=== PATIENT | female | born 1980 | race Caucasian/White ===

== ENCOUNTER → 2016-04-06 | Outpatient (CLI) | payer OTHER ==
[~2016-04-06] MED LIST: CETI10TA10 PO; ETON1IMP2; LEVO75TA PO; ONDA4TAB10 SL; PRENTAB26 PO; VITA400C15 PO
--- NOTE | 2016-04-07 11:30 | CODING QUERY NO DIAGNOSIS ---
TREATMENT RENDERED WITHOUT A DIAGNOSIS 81 To promote full compliance with coding requirements relating to patient care, physician participation is requested in all cases of passenger elevator operator uncertainty. Please assist us with providing a diagnosis/symptom for the test(s) below: A diagnosis/symptom was not documented on your Order. A valid diagnosis/symptom is required to bill all insurances. Please remember that we are unable to code a diagnosis of rule out, probable, possible, questionable, or suspected. DOS 04/06/16 Tests that require a diagnosis: * GRP A BETA STREP DIAGNOSIS: Provider Signature: Date: Thank you Daisy [facility] Information Management Once completed, please kindly fax back to [phone] For questions please call [phone]
== END | disposition home or self-care (01) ==
LOC: C.LABSPEC 08:05
PROVIDERS: ATTEND Internal Medicine
DX: J02.9 Acute pharyngitis, unspecified (principal)

== ENCOUNTER 2017-10-29 19:16 | Emergency (ER) | payer OTHER, BC ==
[~2017-10-29] VITALS: Ht 160 cm; Wt 50.0 kg
[2017-10-29 19:27] VITALS: Ht 160 cm; Wt 50.0 kg
[2017-10-29] MEDS ORDERED: VITA400C28 PO (19:35)
[2017-10-29 19:50] VITALS: BP 129/89; PULSE 69; TEMP 36.8; O2SAT 100
--- NOTE | 2017-10-29 23:22 | EMERGENCY ROOM VISIT NOTE ---
ED Visit Note First contact with patient: 19:28 CHIEF COMPLAINT: Needlestick injury HISTORY OF PRESENT ILLNESS: This right hand dominant 37-year-old femur patient presents to the emergency department, ambulatory, complaining of a needlestick injury to the right fourth finger. The patient accidentally stuck herself with a bloody, hollow bore needle while cleaning a suture tray. She states the puncture wound did bleed immediately. She immediately washed the hand with soap and water twice. The source patient is hepatitis C positive, and it is unknown if he was ever treated. He did agree to testing. The patient denies significant pain. She denies any numbness or tingling. Tetanus vaccination is up-to-date. REVIEW OF SYSTEMS: A 6 system review of systems was performed with positives and pertinent negatives listed in the history of present illness. All other systems were reviewed and are negative. ALLERGIES: None MEDICATIONS: Synthroid, Nexplanon PMH: None SOCIAL HISTORY: The patient lives locally with family. She denies drug, alcohol , tobacco use. PHYSICAL EXAM: VITALS: Vitals are noted on the nurse's note and reviewed by myself. Vital signs stable. GENERAL: This is a 37-year-old white female, in no acute distress, nondiaphoretic, well-developed well-nourished. SKIN: There is a small puncture wound on the anterior aspect of the distal right fourth digit. There is no active bleeding at this time. There is no discoloration. There is no purulence or erythema. No fluctuance. No significant swelling. There is no tenderness to palpation. EMERGENCY DEPARTMENT COURSE: The patient was seen and evaluated as above. She did consent to baseline testing. Labs drawn. I did consult with the postexposure prophylaxis hotline regarding the recommendations for PEP. They advised that there is no PEP for hepatitis C. They recommended the source patient be tested with a hepatitis C PCR to verify for active infection. They also recommended an antibody test be performed. The provider advised of a less than 1.8% risk of exposure with active hepatitis C. She did recommend the patient be tested for hep C RNA in 6 weeks and a hepatitis C antibody in 24 weeks. She recommended a rapid HIV screen. She states that if this is negative the patient does not need to start postexposure prophylaxis for HIV. This was performed and I was notified that the source patient was negative. The patient was not started on postexposure prophylaxis. The patient was advised to follow-up with employee [facility]. I did contact employee health and left a message notifying them of the patient's name. Discharge instructions reviewed. The patient was discharged home in good condition. I attest that I have personally reviewed the patient's current medication list. Patient was found to have normal blood pressure on screening and does not require follow-up. Differential diagnosis includes HIV exposure, hepatitis C exposure, blood-borne pathogen exposure, laceration, contusion, fracture, sprain/strain, tendon or ligament injury, neurovascular compromise, foreign body, assault, and others DIAGNOSIS: Employee health significant exposure, puncture wound right 4th finger The chart was completed utilizing [employer] Speech voice recognition software. Grammatical errors, random word insertions, pronoun errors, and incomplete sentences are an occasional consequence of this system due to software limitations, ambient noise, and hardware issues. Any formal questions or concerns about the content, text, or information contained within the body of this dictation should be directly addressed to the provider for clarification. Problem List Medical Problems: (1) Abdominal pain Status: Resolved (2) Amniotic fluid leaking Status: Resolved (3) Asthma, Unspecified Status: Chronic (4) Breast pain Status: Resolved (5) Breech presentation, antepartum Status: Resolved (6) Diarrhea Status: Resolved (7) Hypothyroidism Nos Status: Chronic (8) Mastitis Status: Resolved (9) Vomiting Status: Resolved Current/Historical Medications Scheduled Etonogestrel (Nexplanon), 1 DOSE CONTINOUS Levothyroxine Sodium (Synthroid), 75 MCG PO QAM Multivit/Min/Iron/Fol Ac/Pren ( Vitamin), 1 TAB PO DAILY Vitamin E (Alph-E), 400 UNIT PO DAILY Allergies Coded Allergies: No Known Allergies (Unverified , 10/29/17) Vital Signs Date Time Temp Pulse Resp B/P (MAP) Pulse Ox O2 Delivery O2 Flow Rate FiO2 10/29/17 19:50 36.8 69 18 129/89 100 10/29/17 19:27 36.8 69 18 129/89 100 Room Air Departure Information Impression Primary Impression: Puncture wound of finger of right hand Additional Impression: Employee exposure to blood Dispostion Home / Self-Care Condition FAIR Referrals Greer Capone PARamana (PCP) Forms WORK / SCHOOL INSTRUCTIONS, HOME CARE DOCUMENTATION FORM, IMPORTANT VISIT INFORMATION Patient Instructions My [facility] Problem Qualifiers Primary Impression: Puncture wound of finger of right hand Encounter type: initial encounter Qualified Codes: S61.239A - Puncture wound without foreign body of unspecified finger without damage to nail, initial encounter
== END 2017-10-29 19:51 | disposition home or self-care (01) ==
LOC: C.EDB 19:17 → C.EDD 19:51
DX: S61.231A Puncture wound without foreign body of left index finger without damage to nail, initial encounter (principal); W46.1XXA Contact with contaminated hypodermic needle, initial encounter; Y99.0 Civilian activity done for income or pay; J45.909 Unspecified asthma, uncomplicated; E03.9 Hypothyroidism, unspecified; Z79.3 Long term (current) use of hormonal contraceptives; Z79.899 Other long term (current) drug therapy

== ENCOUNTER 2020-07-20 12:11 | Inpatient (IN) ==
[2020-07-20] MEDS ORDERED: LORazepam 0.5 MG/1 ML VIAL IV STA ×2 (12:41→15:27)
[2020-07-20] MEDS ORDERED: SODIUM CHLORIDE 0.9% 1,000 ML IV ONE (12:41)
--- NOTE | 2020-07-20 12:52 | Emergency Department Note ---
History of Present Illness General Chief complaint: Dizziness Stated complaint: DIZZINESS, SHAKING Time Seen by Provider: 07/20/20 12:19 Source: patient Mode of arrival: ambulatory Limitations: no limitations History of Present Illness This patient is a 39-year-old female who comes in complaining of dizziness and shaking and an unsteady feeling. She does relate this to drinking alcohol. She drinks typically over up a bottle of wine in the evening. Last time she drank was a glass of wine this morning. She said over the weekend she did not drink as much and felt very shaky. She is also had some left breast pain has been going on for some time and she saw Dr. Wilson this past week and had a ultrasound as well as mammogram which were normal. She has had some intermittent epigastric pain for years. She is vomiting about every other time after she brushes her teeth but think she is just really anxious. No blood in her emesis. She said diarrhea without blood or melena. No weight loss or gain. She does not believe she is . No vaginal bleeding or discharge. She did have the Covid vaccine x2. No chest pain occasional cough she has pain in the left breast area which she is concerned could be related to her lung as well. She has had a mild frontal headache at times. No fall or trauma she is not been passing out or had any syncope. She said she is just feeling very fatigued and it was hard to get out of bed this morning. She denies any drug use. Denies suicidal or homicidal ideations. Home Medications Medication Instructions Recorded Confirmed Type levothyroxine 75 mcg tablet 75 mcg PO DAILY 11/12/19 07/20/20 History norethindrone 1 mg-ethinyl 1 tab PO DAILY #84 tab 11/19/19 07/20/20 Rx estradiol 20 mcg (21)-iron 75 mg (7) tablet ondansetron HCl [Zofran] 4 mg PO Q6H PRN 07/20/20 07/20/20 History Allergies Allergy/AdvReac Type Severity Reaction Status Date / Time No Known Allergies Allergy Verified 07/20/20 15:36 Past Med/Surg History Medical History Asthma Hypothyroidism Surgical History History of oral surgery tooth extraction Family History Aunt Breast cancer Paternal Grandmother (Paternal) Lymphoma Other Dyslipidemia Heart disease Hypertension Ovarian cancer Denies family history of Colorectal cancer Social History Smoking Status: Never smoker Hx Alcohol Use: Yes Alcohol type: wine Alcohol type Comment: 1 - 1.5 ti ttles/day Hx Substance Use: No Preferred Language: Arabic Communication Ability: Effective Clinical Nurse Educator Required: No Beliefs That Will Affect Care: None Current Living Situation: Spouse and Family Other Information That Helps Us Care for You: No Feels Safe at Home: Yes Safety Concerns: Feels Safe At This Time Assistive Devices: None Immunizations: Past medical historyhypothyroid. On medications. She has a history of depression/anxiety and was briefly on medication in the past but does not take anything for it at present. Review of Systems A total of 10 systems reviewed and were otherwise negative Physical Exam Vital Signs Vital Signs - 24 hr 07/20/20 13:14 07/20/20 13:15 07/20/20 13:30 Pulse Rate 90 86 93 H Pulse Rate [Right Finger] Pulse Rate from SpO2 Sensor 89 94 H Pulse Rhythm Regular Pulse Rhythm [Right Finger] Pulse Strength [Right Finger] Respiratory Rate 11 L 16 14 Respiratory Effort / Characteristics Respiratory Depth Respiratory Pattern Blood Pressure Blood Pressure [Left Arm] Blood Pressure Mean Blood Pressure Mean [Left Arm] Blood Pressure Position [Left Arm] Pulse Oximetry 100 98 Oxygen Delivery Method Room Air 07/20/20 13:52 07/20/20 14:11 07/20/20 14:37 Pulse Rate Pulse Rate [Right Finger] Pulse Rate from SpO2 Sensor 104 H Pulse Rhythm Pulse Rhythm [Right Finger] Pulse Strength [Right Finger] Respiratory Rate 18 Respiratory Effort / Characteristics Non-Labored Spontaneous Respiratory Depth Normal Respiratory Pattern Blood Pressure 123/86 Blood Pressure [Left Arm] 123/86 Blood Pressure Mean 98 Blood Pressure Mean [Left Arm] 98 Blood Pressure Position [Left Arm] Pulse Oximetry 99 97 97 Oxygen Delivery Method Room Air Room Air 07/20/20 15:00 07/20/20 15:01 07/20/20 15:15 Pulse Rate 103 H 100 H Pulse Rate [Right Finger] 98 H Pulse Rate from SpO2 Sensor 103 H 101 H Pulse Rhythm Pulse Rhythm [Right Finger] Regular Pulse Strength [Right Finger] Normal Respiratory Rate 14 14 16 Respiratory Effort / Characteristics Non-Labored Spontaneous Respiratory Depth Normal Respiratory Pattern Regular Blood Pressure 147/97 H Blood Pressure [Left Arm] 137/92 Blood Pressure Mean 113 Blood Pressure Mean [Left Arm] 107 Blood Pressure Position [Left Arm] Lying Pulse Oximetry 98 99 98 Oxygen Delivery Method Room Air 07/20/20 15:26 07/20/20 15:30 07/20/20 15:31 Pulse Rate 98 H 94 H 104 H Pulse Rate [Right Finger] Pulse Rate from SpO2 Sensor 102 H Pulse Rhythm Pulse Rhythm [Right Finger] Pulse Strength [Right Finger] Respiratory Rate 15 16 16 Respiratory Effort / Characteristics Respiratory Depth Respiratory Pattern Blood Pressure 137/92 122/91 Blood Pressure [Left Arm] Blood Pressure Mean 107 101 Blood Pressure Mean [Left Arm] Blood Pressure Position [Left Arm] Pulse Oximetry 97 Oxygen Delivery Method 07/20/20 16:00 Pulse Rate 110 H Pulse Rate [Right Finger] Pulse Rate from SpO2 Sensor Pulse Rhythm Pulse Rhythm [Right Finger] Pulse Strength [Right Finger] Respiratory Rate 18 Respiratory Effort / Characteristics Respiratory Depth Respiratory Pattern Blood Pressure Blood Pressure [Left Arm] Blood Pressure Mean Blood Pressure Mean [Left Arm] Blood Pressure Position [Left Arm] Pulse Oximetry Oxygen Delivery Method General: Well developed well nourished young female who appears teary-eyed and mildly shaky but otherwise in no acute distress, breathing comfortably on room air. Normal speech HEENT: Normal cephalic atraumatic. Pupils are equal round and reactive to light. Sclera are anicteric extraocular movements are intact. Oropharynx is pink with moist mucous membranes. No swelling of the mouth lips or tongue. Neck: Supple with a midline trachea. No meningeal signs or stiffness, no JVD or bruits. No Stridor. Chest: Clear to auscultation bilaterally. No wheezes or rhonchi. No increased work of breathing. Heart: Regular rate and rhythm without murmurs or gallops. Abdomen: Soft nontender, nondistended without rebound guarding or rigidity. Extremities: No cyanosis clubbing or edema. No calf tenderness or assymetry Spine/Back. Non tender to palpation. No CVA tenderness Skin: Good turgor without rashes. Neurologic exam: Cranial nerves two through 12 are intact. Motor and sensation are intact and symmetrical throughout. Finger-nose intact but she does have some mild shakiness of her arms when extended. Course Administered Medications Lorazepam (Ativan) 2 mg in 4 mls @ 4 mls/min IV UD PRN; Protocol PRN Reason: EtOH Withdrawl AWSS Score 8,9 Stop: 08/19/20 21:43 Last Admin: 07/21/20 12:00 Dose: 4 mls/min Documented by: [id number] Admin: 07/21/20 07:34 Dose: 4 mls/min Documented by: [id number] Admin: 07/20/20 23:46 Dose: 4 mls/min Documented by: [id number] Multivitamins 10 ml/ Thiamine HCl 100 mg/ Folic Acid 1 mg/Sodium Chloride 1,011.2 mls @ 125 mls/hr IV DAILY@0900 [facility] Stop: 07/21/20 18:00 Last Infusion: 07/21/20 10:55 Dose: 0 mls/hr Documented by: [id number] Admin: 07/21/20 08:51 Dose: 500 mls/hr Documented by: [id number] Dextrose/Sodium Chloride (D5w And 1/2nss) 1,000 mls @ 100 mls/hr IV .Q10H [facility] Stop: 08/19/20 21:43 Last Infusion: 07/21/20 11:00 Dose: 100 mls/hr Documented by: [id number] Infusion: 07/21/20 08:53 Dose: 0 mls/hr Documented by: [id number] Admin: 07/21/20 08:51 Dose: 100 mls/hr Documented by: [id number] Infusion: 07/21/20 08:24 Dose: 100 mls/hr Documented by: [id number] Admin: 07/20/20 22:24 Dose: 100 mls/hr Documented by: [id number] Levothyroxine Sodium (Levothyroxine Sodium 75 Mcg Tablet) 75 mcg PO DAILYBB [facility] Stop: 08/20/20 06:29 Last Admin: 07/21/20 06:26 Dose: 75 mcg Documented by: [id number] Discontinued Medications Gabapentin (Gabapentin 400 Mg Cap) 800 mg PO NOW ONE Stop: 07/20/20 21:45 Last Admin: 07/20/20 22:07 Dose: 800 mg Documented by: [id number] Gabapentin (Gabapentin 400 Mg Cap) 400 mg PO Q6H [facility] Stop: 07/21/20 12:01 Last Admin: 07/21/20 11:51 Dose: 400 mg Documented by: [id number] Admin: 07/21/20 06:26 Dose: 400 mg Documented by: [id number] Lorazepam (Ativan) 0.5 mg in 1 mls @ 1 mls/min IV NOW STA Stop: 07/20/20 12:42 Last Admin: 07/20/20 13:06 Dose: 1 mls/min Documented by: [id number] Sodium Chloride (Nss 1000ml) 1,000 mls @ 999 mls/hr IV .Q1H1M ONE Stop: 07/20/20 13:41 Last Infusion: 07/20/20 14:33 Dose: 0 mls/hr Documented by: [id number] Infusion: 07/20/20 14:07 Dose: 0 mls/hr Documented by: [id number] Admin: 07/20/20 13:06 Dose: 999 mls/hr Documented by: [id number] Lorazepam (Ativan) 0.5 mg in 1 mls @ 1 mls/min IV NOW STA Stop: 07/20/20 15:28 Last Admin: 07/20/20 16:23 Dose: 1 mls/min Documented by: [id number] Multivitamins 10 ml/ Thiamine HCl 100 mg/ Folic Acid 1 mg/Sodium Chloride 1,011.2 mls @ 1,011.2 mls/hr IV .Q1H ONE Stop: 07/20/20 16:26 Last Infusion: 07/20/20 21:18 Dose: 0 mls/hr Documented by: [id number] Admin: 07/20/20 17:32 Dose: 1,011.2 mls/hr Documented by: [id number] Lorazepam (Ativan) 1 mg in 2 mls @ 2 mls/min IV NOW STA Stop: 07/20/20 18:02 Last Admin: 07/20/20 18:15 Dose: 2 mls/min Documented by: [id number] Lorazepam (Ativan) 1 mg in 2 mls @ 2 mls/min IV NOW STA Stop: 07/20/20 20:37 Last Admin: 07/20/20 21:09 Dose: 2 mls/min Documented by: [id number] Ioversol (Optiray 350 500ml) 120 ml IV ONCE ONE Stop: 07/20/20 13:59 Last Admin: 07/20/20 13:58 Dose: 120 ml Documented by: [id number] Ondansetron HCl (Ondansetron Inj 2 Mg/Ml 2 Ml Vial) 4 mg IV NOW STA Stop: 07/20/20 16:03 Last Admin: 07/20/20 16:24 Dose: 4 mg Documented by: [id number] Potassium Chloride (Potassium Chloride Crtab 20 Meq Tabcr) 40 meq PO ONE ONE Stop: 07/20/20 16:44 Last Admin: 07/20/20 17:31 Dose: 40 meq Documented by: [id number] Medical Decision Making Differential Diagnosis Dehydration, electrolyte or metabolic abnormality, alcohol use/withdrawal, Covid, anxiety, intra-abdominal process, PE, intracranial process Medical Records Attestation: I reviewed the patient's medical records. Home Medications Current Medication List: was personally reviewed by me Laboratory Data Attestation: I reviewed the patient's lab results. Result diagrams: 07/20/20 13:00 07/21/20 05:45 Lab Results 07/20/20 07/20/20 07/20/20 Range/Units 13:00 13:00 13:00 WBC 4.02 L (4.8-10.8) K/uL RBC 3.85 L (4.2-5.4) M/uL Hgb 13.3 (12.0-16.0) g/dL Hct 39.4 (37-47) % MCV 102.3 H (80-100) fL MCH 34.5 H (25-34) pg MCHC 33.8 (32-36) g/dL RDW Std Deviation 53.3 H (36.4-46.3) fL RDW Coeff of Tan 14.2 (11.5-14.5) % Plt Count 150 (130-400) K/uL MPV 10.6 H (7.4-10.4) fL Immature Gran % (Auto) 0.5 % Neut % (Auto) 53.2 % Lymph % (Auto) 34.8 % [place] % (Auto) 9.5 % Eos % (Auto) 1.5 % Baso % (Auto) 0.5 % Neut # (Auto) 2.14 (1.4-6.5) K/uL Lymph # (Auto) 1.40 (1.2-3.4) K/uL [place] # (Auto) 0.38 (0.11-0.59) K/uL Eos # (Auto) 0.06 (0-0.5) K/uL Baso # (Auto) 0.02 (0-0.2) K/uL Immature Gran # (Auto) 0.02 (0.00-0.02) K/uL PT 9.8 (9.0-12.0) Seconds INR 1.0 (0.9-1.1) APTT 25.3 (21.0-31.0) Seconds PTT Ratio 1.0 Sodium 140 (136-145) mmol/L Potassium 3.3 L (3.5-5.1) mmol/L Chloride 104 (98-107) mmol/L Carbon Dioxide 21 (21-32) mmol/L Anion Gap 15.0 H (3-11) BUN 9 (7-18) mg/dl Creatinine 0.63 (0.6-1.2) mg/dl Est Cr Clr Drug Dosing 100.2 ml/min Est GFR ( Amer) 131.9 ml/min Est GFR (Non-Af Amer) 113.8 ml/min BUN/Creatinine Ratio 14.4 (10-20) Glucose 66 L (70-99) mg/dl Calcium 9.3 (8.5-10.1) mg/dl Magnesium 1.8 (1.8-2.4) mg/dl Total Bilirubin 0.6 (0.2-1) mg/dl AST 165 H (15-37) U/L ALT 41 (12-78) U/L Alkaline Phosphatase 69 (45-117) U/L Total Protein 8.3 H (6.4-8.2) gm/dl Albumin 4.1 (3.4-5.0) gm/dl Globulin 4.2 H (2.5-4.0) gm/dl Albumin/Globulin Ratio 1.0 (0.9-2) Lipase 109 (73-393) U/L TSH (0.300-4.500) uIu/ml HCG, Qual (Negative) Salicylates (2.8-20) mg/dl Acetaminophen (10-30) ug/ml Ethyl Alcohol mg/dL (0-3) mg/dl COVID-19 Eval Order SARS-CoV-2 (PCR) (Negative) 07/20/20 07/20/20 07/20/20 Range/Units 13:00 13:00 13:00 WBC (4.8-10.8) K/uL RBC (4.2-5.4) M/uL Hgb (12.0-16.0) g/dL Hct (37-47) % MCV (80-100) fL MCH (25-34) pg MCHC (32-36) g/dL RDW Std Deviation (36.4-46.3) fL RDW Coeff of Tan (11.5-14.5) % Plt Count (130-400) K/uL MPV (7.4-10.4) fL Immature Gran % (Auto) % Neut % (Auto) % Lymph % (Auto) % [place] % (Auto) % Eos % (Auto) % Baso % (Auto) % Neut # (Auto) (1.4-6.5) K/uL Lymph # (Auto) (1.2-3.4) K/uL [place] # (Auto) (0.11-0.59) K/uL Eos # (Auto) (0-0.5) K/uL Baso # (Auto) (0-0.2) K/uL Immature Gran # (Auto) (0.00-0.02) K/uL PT (9.0-12.0) Seconds INR (0.9-1.1) APTT (21.0-31.0) Seconds PTT Ratio Sodium (136-145) mmol/L Potassium (3.5-5.1) mmol/L Chloride (98-107) mmol/L Carbon Dioxide (21-32) mmol/L Anion Gap (3-11) BUN (7-18) mg/dl Creatinine (0.6-1.2) mg/dl Est Cr Clr Drug Dosing ml/min Est GFR ( Amer) ml/min Est GFR (Non-Af Amer) ml/min BUN/Creatinine Ratio (10-20) Glucose (70-99) mg/dl Calcium (8.5-10.1) mg/dl Magnesium (1.8-2.4) mg/dl Total Bilirubin (0.2-1) mg/dl AST (15-37) U/L ALT (12-78) U/L Alkaline Phosphatase (45-117) U/L Total Protein (6.4-8.2) gm/dl Albumin (3.4-5.0) gm/dl Globulin (2.5-4.0) gm/dl Albumin/Globulin Ratio (0.9-2) Lipase (73-393) U/L TSH 3.290 (0.300-4.500) uIu/ml HCG, Qual Negative (Negative) Salicylates < 1.7 L (2.8-20) mg/dl Acetaminophen < 2 L (10-30) ug/ml Ethyl Alcohol mg/dL (0-3) mg/dl COVID-19 Eval Order SARS-CoV-2 (PCR) (Negative) 07/20/20 07/20/20 07/20/20 Range/Units 13:15 13:15 13:16 WBC (4.8-10.8) K/uL RBC (4.2-5.4) M/uL Hgb (12.0-16.0) g/dL Hct (37-47) % MCV (80-100) fL MCH (25-34) pg MCHC (32-36) g/dL RDW Std Deviation (36.4-46.3) fL RDW Coeff of Tan (11.5-14.5) % Plt Count (130-400) K/uL MPV (7.4-10.4) fL Immature Gran % (Auto) % Neut % (Auto) % Lymph % (Auto) % [place] % (Auto) % Eos % (Auto) % Baso % (Auto) % Neut # (Auto) (1.4-6.5) K/uL Lymph # (Auto) (1.2-3.4) K/uL [place] # (Auto) (0.11-0.59) K/uL Eos # (Auto) (0-0.5) K/uL Baso # (Auto) (0-0.2) K/uL Immature Gran # (Auto) (0.00-0.02) K/uL PT (9.0-12.0) Seconds INR (0.9-1.1) APTT (21.0-31.0) Seconds PTT Ratio Sodium (136-145) mmol/L Potassium (3.5-5.1) mmol/L Chloride (98-107) mmol/L Carbon Dioxide (21-32) mmol/L Anion Gap (3-11) BUN (7-18) mg/dl Creatinine (0.6-1.2) mg/dl Est Cr Clr Drug Dosing ml/min Est GFR ( Amer) ml/min Est GFR (Non-Af Amer) ml/min BUN/Creatinine Ratio (10-20) Glucose (70-99) mg/dl Calcium (8.5-10.1) mg/dl Magnesium (1.8-2.4) mg/dl Total Bilirubin (0.2-1) mg/dl AST (15-37) U/L ALT (12-78) U/L Alkaline Phosphatase (45-117) U/L Total Protein (6.4-8.2) gm/dl Albumin (3.4-5.0) gm/dl Globulin (2.5-4.0) gm/dl Albumin/Globulin Ratio (0.9-2) Lipase (73-393) U/L TSH (0.300-4.500) uIu/ml HCG, Qual (Negative) Salicylates (2.8-20) mg/dl Acetaminophen (10-30) ug/ml Ethyl Alcohol mg/dL 287.0 H (0-3) mg/dl COVID-19 Eval Order Covid19 at [facility] SARS-CoV-2 (PCR) NEGATIVE (Negative) Imaging Data My Impression: Abdomen/Pelvis CT 07/20/20 12:39 CT OF THE ABDOMEN AND PELVIS WITH CONTRAST CLINICAL HISTORY: Abdominal pain, elevated lfts. COMPARISON STUDY: CT of the abdomen and pelvis May 06, 2015. Right upper quadrant ultrasound July 12, 2015. TECHNIQUE: Following IV administration of 120 mL of Optiray, axial images of the abdomen and pelvis were obtained from the lung bases to the proximal femurs. Images were reviewed in the axial, sagittal, and coronal planes. IV contrast was administered without complication. Automated exposure control was utilized for the study. A dose lowering technique was utilized adhering to the principles of ALARA. FINDINGS: Please note that the chest CT will be reported separately. No pneumatosis, free air or portal venous gas is noted. Hepatic steatosis is present. No hepatic lesions are identified. There is no biliary or pancreatic ductal dilatation. No peripancreatic infiltration or fluid is noted. The spleen, adrenal glands and kidneys are unremarkable. There is no hydronephrosis. The appendix is normal. Note is made of submucosal fat deposition within the ascending colon. Mild wall thickening of the sigmoid colon, descending colon and transverse colon is noted. There is also mild wall thickening of the ascending colon which is probably chronic. No free air or abscess is present. Major vasculature is patent. There is no ascites or lymphadenopathy. No acute fracture or suspicious lesion is identified within the visualized skeletal structures. IMPRESSION: 1. Mild wall thickening of the transverse colon, descending colon and sigmoid colon which suggests a nonspecific colitis, likely infectious or inflammatory. Submucosal fat deposition within the ascending colon can be seen in the setting of chronic inflammation. 2. Hepatic steatosis. 3. No bowel obstruction. Normal appendix. ACT 112: Negative or not required by law. Electronically signed by: Fabian Smith M.D. 07/20/2020 2:31 PM Chest CTA 07/20/20 12:39 CHEST CTA for PULMONARY ARTERIES CT DOSE: 1121.89 mGy.cm HISTORY: Dizziness. Atypical chest pain. TECHNIQUE: Multiaxial CT images of the chest were performed following the intravenous administration of contrast to evaluate the pulmonary arteries. Maximal intensity projection images were also obtained. A dose lowering technique was utilized adhering to the principles of ALARA. COMPARISON STUDY: Chest CTA 07/12/2015. FINDINGS: Limited views of the upper abdomen demonstrate hepatic steatosis and a normal spleen. Please refer to same day abdomen and pelvis CT for further evaluation of the abdominal structures. Normal caliber thoracic aorta with no evidence for dissection. No pleural or pericardial effusions. The heart is normal in size. No filling defects within the pulmonary arteries to suggest pulmonary embolus. No mediastinal hilar lymphadenopathy. Normal esophagus. No fractures within the visualized osseous structures. No pneumothorax. The central airways are patent. Stable 3 mm right middle lobe nodule on image 119. This is likely benign given the long-term stability. Otherwise, the lungs are clear. IMPRESSION: 1. No evidence for pulmonary embolus. 2. Hepatic steatosis. This is better appreciated on the same day abdomen and pelvis CT. ACT 112: Negative or not required by law. Electronically signed by: Doug George M.D. 07/20/2020 2:[address] 07/20/20 12:[address] DOSE: HISTORY: headache TECHNIQUE: Multiaxial CT images of the head were performed without the use of intravenous contrast. Automated exposure control was utilized for this study. A dose lowering technique was utilized adhering to the principles of ALARA. Comparison: None. Findings: The paranasal sinuses and mastoid air cells are clear. The calvarium and skull base are intact. The ventricles and sulci are within normal limits. There is no mass, hematoma, midline shift, or acute infarct. Impression: No acute intracranial abnormality. ACT 112: Negative or not required by law. Electronically signed by: Doug George M.D. 07/20/2020 2:15 PM Radiologist's Impression: Abdomen/Pelvis CT 07/20/20 12:39 CT OF THE ABDOMEN AND PELVIS WITH CONTRAST CLINICAL HISTORY: Abdominal pain, elevated lfts. COMPARISON STUDY: CT of the abdomen and pelvis May 06, 2015. Right upper quadrant ultrasound July 12, 2015. TECHNIQUE: Following IV administration of 120 mL of Optiray, axial images of the abdomen and pelvis were obtained from the lung bases to the proximal femurs. Images were reviewed in the axial, sagittal, and coronal planes. IV contrast was administered without complication. Automated exposure control was utilized for the study. A dose lowering technique was utilized adhering to the principles of ALARA. FINDINGS: Please note that the chest CT will be reported separately. No pneumatosis, free air or portal venous gas is noted. Hepatic steatosis is present. No hepatic lesions are identified. There is no biliary or pancreatic ductal dilatation. No peripancreatic infiltration or fluid is noted. The spleen, adrenal glands and kidneys are unremarkable. There is no hydronephrosis. The appendix is normal. Note is made of submucosal fat deposition within the ascending colon. Mild wall thickening of the sigmoid colon, descending colon and transverse colon is noted. There is also mild wall thickening of the ascending colon which is probably chronic. No free air or abscess is present. Major vas culature is patent. There is no ascites or lymphadenopathy. No acute fracture or suspicious lesion is identified within the visualized skeletal structures. IMPRESSION: 1. Mild wall thickening of the transverse colon, descending colon and sigmoid colon which suggests a nonspecific colitis, likely infectious or inflammatory. Submucosal fat deposition within the ascending colon can be seen in the setting of chronic inflammation. 2. Hepatic steatosis. 3. No bowel obstruction. Normal appendix. ACT 112: Negative or not required by law. Electronically signed by: Fabian Smith M.D. 07/20/2020 2:31 PM Chest CTA 07/20/20 12:39 CHEST CTA for PULMONARY ARTERIES CT DOSE: 1121.89 mGy.cm HISTORY: Dizziness. Atypical chest pain. TECHNIQUE: Multiaxial CT images of the chest were performed following the intravenous administration of contrast to evaluate the pulmonary arteries. Maximal intensity projection images were also obtained. A dose lowering technique was utilized adhering to the principles of ALARA. COMPARISON STUDY: Chest CTA 07/12/2015. FINDINGS: Limited views of the upper abdomen demonstrate hepatic steatosis and a normal spleen. Please refer to same day abdomen and pelvis CT for further evaluation of the abdominal structures. Normal caliber thoracic aorta with no evidence for dissection. No pleural or pericardial effusions. The heart is normal in size. No filling defects within the pulmonary arteries to suggest pulmonary embolus. No mediastinal hilar lymphadenopathy. Normal esophagus. No fractures within the visualized osseous structures. No pneumothorax. The central airways are patent. Stable 3 mm right middle lobe nodule on image 119. This is likely benign given the long-term stability. Otherwise, the lungs are clear. IMPRESSION: 1. No evidence for pulmonary embolus. 2. Hepatic steatosis. This is better appreciated on the same day abdomen and pelvis CT. ACT 112: Negative or not required by law. Electronically signed by: Doug George M.D. 07/20/2020 2:[address] 07/20/20 12:[address] DOSE: HISTORY: headache TECHNIQUE: Multiaxial CT images of the head were performed without the use of intravenous contrast. Automated exposure control was utilized for this study. A dose lowering technique was utilized adhering to the principles of ALARA. Comparison: None. Findings: The paranasal sinuses and mastoid air cells are clear. The calvarium and skull base are intact. The ventricles and sulci are within normal limits. There is no mass, hematoma, midline shift, or acute infarct. Impression: No acute intracranial abnormality. ACT 112: Negative or not required by law. Electronically signed by: Doug George M.D. 07/20/2020 2:15 PM ECG Data Attestation: I personally reviewed and interpreted this ECG as follows: Indication: + weakness Rate (beats per minute): 83 Rhythm: + sinus with SA ECG Intervals/blocks: + Normal QRS, + Normal QT and + Normal RI ECG [place]: + Normal ECG ST segments: + Normal ST segments ECG Findings: no PACs and no PVCs Comparison ECG Date: from (07/12/15) Change: no significant change MDM Narrative This patient comes in as described above she has been feeling dizzy and shaky and has had increased alcohol use. Her symptoms seem to be worse when she is not drinking. She is tachycardic but seems anxious but I am worried about alcohol withdrawal. IV access was established and she was hydrated with IV normal saline. She was given Ativan 0.5 mg IV. Her blood testing was obtained as well as an EKG and Covid testing. She is very concerned about her left breast pain which has been evaluated by gynecology as well as abdominal discomfort and in light of this we will get a CAT scan of her chest and abdomen. She also had headache so I will do a CAT scan of her head. She apparently had abnormal labs last year with low platelets and elevated LFTs which she did not follow-up on with her doctor. We are doing extensive work-up here. Her white count was mildly low at 4 but her platelets and hemoglobin were normal. Her electrolytes and liver functions also look good. Her lipase is normal which would go against an acute pancreatitis. test was negative. Imaging of her head was negative. Chest CT was negative for PE and other pathology. CAT scan abdomen pelvis show a fatty liver and a mild colitis, nonspecific but otherwise no acute abnormalities. Covid testing was negative. Her blood alcohol was 287 and despite this significant elevation she did not appear to be overtly intoxicated. I am also concerned that with her level being this high she was with showing withdrawal type symptoms. I discussed this with her and she agrees. The Ativan did help her but she did require additional dose of 0.5 mg IV. She is concerned about going home when she does feel very weak and she is concerned about withdrawing. I do agree and I think she would benefit from a medical admission to help her prevent withdrawal, also come up with a game plan for alcohol rehab and counseling. She is in agreement with this and seems very willing to want help. I have consulted Keisha oJ from the hospitalist team to see her in the ER. Covid testing is negative. Continuous cardiac monitoring: An order was placed in EMR for continuous cardiac monitoring. Upon my interpretation, she was in sinus tachycardia at a rate of 100. Impression & Plan Alcohol withdrawal, Weakness, Dizziness, Abdominal pain Discharge Plan Visit Data Chief Complaint: Dizziness Stated Complaint: DIZZINESS, SHAKING ED Provider: Tunde Tubbs Discharge Problem: Alcohol withdrawal, Weakness, Dizziness, Abdominal pain Patient Disposition: Admitted As Inpatient Discharge Instructions Interventions: ED Discharge Assessment Last Done: 07/20/20 21:30 Discharge Problem: Alcohol withdrawal Qualifiers: Complication of substance-induced condition: uncomplicated Qualified Code(s): F10.230 - Alcohol dependence with withdrawal, uncomplicated Abdominal pain Qualifiers: Abdominal location: epigastric Qualified Code(s): R10.13 - Epigastric pain
[2020-07-20 13:24] LABS: Basophils # (auto) 0.02 K/uL (0-0.2); Basophils % (auto) 0.5 %; Eosinophils # (auto) 0.06 K/uL (0-0.5); Eosinophils % (auto) 1.5 %; Hematocrit (blood only) 39.4 % (37-47); Hemoglobin 13.3 g/dL (12.0-16.0); Immature Granulocytes # (auto) 0.02 K/uL (0.00-0.02); Immature Granulocytes % (auto) 0.5 %; Lymphocytes % (auto) 34.8 %; Mean Corpuscular Hemoglobin 34.5 pg (25-34); Mean Corpuscular Hgb Conc 33.8 g/dL (32-36); Mean Corpuscular Volume 102.3 fL (80-100); Mean Platelet Volume 10.6 fL (7.4-10.4); Monocytes # (auto) 0.38 K/uL (0.11-0.59); Monocytes % (auto) 9.5 %; Neutrophils # (auto) 2.14 K/uL (1.4-6.5); Neutrophils % (auto) 53.2 %; Platelet Count 150 K/uL (130-400); RDW Coefficient of Variation 14.2 % (11.5-14.5); RDW Standard Deviation 53.3 fL (36.4-46.3); Red Blood Count 3.85 M/uL (4.2-5.4); White Blood Count 4.02 K/uL (4.8-10.8)
[2020-07-20 13:39] LABS: Partial Thromboplastin Time 25.3 Seconds (21.0-31.0); Prothrombin Time 9.8 Seconds (9.0-12.0)
[2020-07-20 13:46] LABS: Albumin Level 4.1 gm/dl (3.4-5.0); BUN Creatinine Ratio 14.4 (10-20); Calcium 9.3 mg/dl (8.5-10.1); Creatinine Clr Calc Pharmacy 100.2 ml/min; Est GFR (African American) 131.9 ml/min; Est GFR (Non-African American) 113.8 ml/min; Magnesium 1.8 mg/dl (1.8-2.4); Potassium 3.3 mmol/L (3.5-5.1)
[2020-07-20 13:48] LABS: Pregnancy Test, Serum Negative (Negative)
[2020-07-20 13:49] LABS: Bilirubin,Total 0.6 mg/dl (0.2-1); Globulin 4.2 gm/dl (2.5-4.0); Total Protein 8.3 gm/dl (6.4-8.2)
[2020-07-20] MEDS ORDERED: OPTIRAY 350 500ml IV ONE (13:58)
[2020-07-20 14:03] LABS: Acetaminophen < 2 ug/ml (10-30); Salicylate < 1.7 mg/dl (2.8-20)
--- NOTE | 2020-07-20 14:16 | CT Scan Report ---
HEAD CT NONCONTRAST CT DOSE: HISTORY: headache TECHNIQUE: Multiaxial CT images of the head were performed without the use of intravenous contrast. A utomated exposure control was utilized for this study. A dose lowering technique was utilized adheri ng to the principles of ALARA. Comparison: None. Findings: The paranasal sinuses and mastoid air cells are clear. The calvarium and skull base are int act. The ventricles and sulci are within normal limits. There is no mass, hematoma, midline shift, or acute infarct. Impression: No acute intracranial abnormality. ACT 112: Negative or not required by law. Electronically signed by: Doug George M.D. 07/20/2020 2:15 PM
--- NOTE | 2020-07-20 14:22 | CT Scan Report ---
CHEST CTA for PULMONARY ARTERIES CT DOSE: 1121.89 mGy.cm HISTORY: Dizziness. Atypical chest pain. TECHNIQUE: Multiaxial CT images of the chest were performed following the intravenous administration of contrast to evaluate the pulmonary arteries. Maximal intensity projection images were also obtaine d. A dose lowering technique was utilized adhering to the principles of ALARA. COMPARISON STUDY: Chest CTA 07/12/2015. FINDINGS: Limited views of the upper abdomen demonstrate hepatic steatosis and a normal spleen. Pleas e refer to same day abdomen and pelvis CT for further evaluation of the abdominal structures. Normal caliber thoracic aorta with no evidence for dissection. No pleural or pericardial effusions. The hear t is normal in size. No filling defects within the pulmonary arteries to suggest pulmonary embolus. N o mediastinal hilar lymphadenopathy. Normal esophagus. No fractures within the visualized osseous str uctures. No pneumothorax. The central airways are patent. Stable 3 mm right middle lobe nodule on roseanne ge 119. This is likely benign given the long-term stability. Otherwise, the lungs are clear. IMPRESSION: 1. No evidence for pulmonary embolus. 2. Hepatic steatosis. This is better appreciated on the same day abdomen and pelvis CT. ACT 112: Negative or not required by law. Electronically signed by: Doug George M.D. 07/20/2020 2:21 PM
--- NOTE | 2020-07-20 14:33 | CT Scan Report ---
CT OF THE ABDOMEN AND PELVIS WITH CONTRAST CLINICAL HISTORY: Abdominal pain, elevated lfts. COMPARISON STUDY: CT of the abdomen and pelvis May 06, 2015. Right upper quadrant ultrasound July 12, 2015. TECHNIQUE: Following IV administration of 120 mL of Optiray, axial images of the abdomen and pelvis w ere obtained from the lung bases to the proximal femurs. Images were reviewed in the axial, sagittal, and coronal planes. IV contrast was administered without complication. Automated exposure control w as utilized for the study. A dose lowering technique was utilized adhering to the principles of ALAR A. FINDINGS: Please note that the chest CT will be reported separately. No pneumatosis, free air or port al venous gas is noted. Hepatic steatosis is present. No hepatic lesions are identified. There is no biliary or pancreatic ductal dilatation. No peripancreatic infiltration or fluid is noted. The spleen , adrenal glands and kidneys are unremarkable. There is no hydronephrosis. The appendix is normal. No te is made of submucosal fat deposition within the ascending colon. Mild wall thickening of the sigmo id colon, descending colon and transverse colon is noted. There is also mild wall thickening of the a scending colon which is probably chronic. No free air or abscess is present. Major vasculature is pat ent. There is no ascites or lymphadenopathy. No acute fracture or suspicious lesion is identified wit hin the visualized skeletal structures. IMPRESSION: 1. Mild wall thickening of the transverse colon, descending colon and sigmoid colon which suggests a nonspecific colitis, likely infectious or inflammatory. Submucosal fat deposition within the ascendin g colon can be seen in the setting of chronic inflammation. 2. Hepatic steatosis. 3. No bowel obstruction. Normal appendix. ACT 112: Negative or not required by law. Electronically signed by: Fabian Smith M.D. 07/20/2020 2:31 PM
[2020-07-20 14:53] LABS: Appearance Urine Clear (Clear); Bacteria Urine Automated Negative (Negative); Bilirubin Urine Negative (Negative); Blood Urine Negative (Negative); Color Urine Yellow; Epithelial Cell Urine Auto >30 /lpf (0-5); Glucose Urine UA Negative (Negative); Ketones Urine 1+ (Negative); Leukocyte Esterase Urine Negative (Negative); Nitrite Urine Negative (Negative); Protein Urine 1+ (Negative); RBC Urine Automated 0-4 /hpf (0-4); Specific Gravity Urine 1.039 (1.000-1.030); Urobilinogen Urine Negative (Negative); pH Urine 6.5 (4.5-7.5)
[2020-07-20 15:16] LABS: Amphetamines+Metham, Urine Neg (Neg); Barbiturates, Urine Neg (Neg); Benzodiazepine, Urine Neg (Neg); Cocaine, Urine Neg (Neg); MDMA (Ecstacy), Urine Neg (Neg); Methadone, Urine Neg (Neg); Opiate, Urine Neg (Neg); Phencyclidine, Urine Neg (Neg)
[2020-07-20] MEDS ORDERED: MULTI-VITAMIN INFUSION 10 ML, THIAMINE HCL 100 MG, FOLIC ACID 1 MG in SODIUM CHLORIDE 0... IV ONE (15:27)
[2020-07-20] MEDS ORDERED: ONDANSETRON INJ 2 MG/ML 2 ML VIAL IV STA (16:02)
[2020-07-20] MEDS ORDERED: POTASSIUM CHLORIDE CRTAB 20 MEQ TABCR PO ONE (16:43)
--- NOTE | 2020-07-20 17:00 | Communication Note ---
Date of Service: July 20, 2020 39-year-old woman with history of hypothyroidism who presents with symptoms of alcohol withdrawal. History as detailed by Keisha JUÁREZ, notable for daily alcohol intake with symptoms of withdrawal [tremors which affects balance on her feet]. Last drink was this morning. Physical examination General: Well nourished, well hydrated, no acute distress and not ill appearing Eyes: PERRL, conjunctivae normal, not pale, anicteric sclerae, EOM intact bilaterally ENMT: External ear and nose normal, oropharynx normal Neck: Normal visual inspection, no tracheal deviation, no swelling noted Respiratory: Normal respiratory effort, no respiratory distress, lungs clear to auscultation, no crackles and no wheezes Cardiovascular: Pulse is RRR. Heart Sounds: normal S1 and normal S2; no murmurs. Vessels: normal peripheral pulses Extremities: no pedal edema Gastrointestinal (Abdomen): Abdomen is not distended, soft, non-tender to palpation, no guarding, no palpable hepatosplenomegaly, normal bowel sounds Musculoskeletal: No cyanosis or clubbing, all extremities motor strength 5/5 Genitourinary: No CVA tenderness Skin: No rash noted on gross inspection, No ulcers noted Neurologic: Alert and oriented x 3, No focal weakness, sensation grossly intact, +tremors in outstretched hands Psychiatric: Alert and oriented x 3, euthymic affect Labs notable for potassium of 3.3, AST of 165, alcohol level of 287 CT abdomen pelvis show mild wall thickening of the transverse, descending and sigmoid colon, hepatic steatosis -Alcohol withdrawal -Hypokalemia Continue MVI infusion Replete potassium monitor electrolyte Manage with CIWA per protocol Started on gabapentin Continue levothyroxine follow-up TSH Patient would like psychiatry consult. Ordered Other plans as detailed by Keisha JUÁREZ
[2020-07-20] MEDS ORDERED: LORazepam 1 MG/2 ML VIAL IV STA ×2 (18:01→20:36)
--- NOTE | 2020-07-20 18:44 | History & Physical Report ---
Date of Service July 20, 2020 Assessment & Plan (1) Alcohol withdrawal: (2) Elevated AST (SGOT): (3) Fatty liver: -Admit to [facility] with telemetry -Patient presenting from home with reports of dizziness, shakiness, increased alcohol use -Drinking 1 - 1.5 bottles of wine/day for the past 8 months, last drink this morning around 9 AM -AST 165, signs of hepatic steatosis on CT ABD/pelvis -likely due to alcohol use -Alcohol level 287 -Gabapentin withdrawal protocol with as needed Ativan -Daily banana bag (4) Colitis: -CT ABD/pelvis shows signs of nonspecific colitis -Do not suspect infectious, check stool studies (5) Depression: -Denies suicidal or homicidal thoughts or plans -Psychiatry consult (6) Hypothyroidism: -TSH 3.29, continue levothyroxine (7) DVT prophylaxis: -SCDs History of Present Illness Chief Complaint: Dizziness, shakiness, alcohol use Primary Care Provider: Greer Capone PA-C 39-year-old female with PMH hypothyroidism, and other problems listed below who presents the ED with reports of dizziness, shakiness, increased alcohol use. Patient reports she has been drinking 1 to 1-1/2 bottles of wine nightly for the past 8 months. Reports increased stressors due to marital problems and restrictions with COVID-19 and her daughter going to school. Patient reports waking up in the middle the night feeling shaky and having a glass of wine. She reports that most mornings is difficult for her to get out of bed due to dizziness and shakiness. Reports ongoing issues with vomiting and diarrhea. Denies abdominal pain. No hematemesis, coffee-ground emesis, bright red bleeding per rectum, dark tarry stools. Patient denies suicidal or homicidal thoughts or plans. Reports that she feels depressed. Denies chest pain, palpitations, and shortness of breath. No syncopal events. Denies fevers and chills. No urinary symptoms. Patient reports her last drink was a glass of wine at 9:00 this morning. In the ED, labs show K+ 3.3, glucose 66, AST 165, alcohol level 287. Patient was tachycardic on arrival at 137, this improved and HR currently in the low 100s. CTA chest negative for pulmonary embolism. CT ABD/pelvis shows signs of nonspecific colitis and hepatic steatosis. Patient was given lorazepam 0.5 mg IV x 2, banana bag, IV Zofran, IVF. Allergies Allergy/AdvReac Type Severity Reaction Status Date / Time No Known Allergies Allergy Verified 07/20/20 15:36 Home Medications Medication Instructions Recorded Confirmed Type levothyroxine 75 mcg tablet 75 mcg PO DAILY 11/12/19 07/20/20 History norethindrone 1 mg-ethinyl 1 tab PO DAILY #84 tab 11/19/19 07/20/20 Rx estradiol 20 mcg (21)-iron 75 mg (7) tablet ondansetron HCl [Zofran] 4 mg PO Q6H PRN 07/20/20 07/20/20 History Past Med/Surg History Medical History Asthma Hypothyroidism Surgical History History of oral surgery tooth extraction Family History Aunt Breast cancer Paternal Grandmother (Paternal) Lymphoma Other Dyslipidemia Heart disease Hypertension Ovarian cancer Denies family history of Colorectal cancer Social History Smoking Status: Never smoker Hx Alcohol Use: Yes Alcohol type: wine Alcohol type Comment: 1 - 1.5 bottles/day Hx Substance Use: No Preferred Language: Upper Sorbian Communication Ability: Effective Medical Technician Required: No Beliefs That Will Affect Care: None Current Living Situation: Spouse and Family Other Information That Helps Us Care for You: No Feels Safe at Home: Yes Safety Concerns: Feels Safe At This Time Assistive Devices: None Review of Systems Review of Systems: ROS per HPI, all other systems reviewed and negative Physical Exam Physical Exam: Please refer to Kika Pisano's addendum for physical exam. Results & Data Results & Data ([facility]) Vital Signs (Past 12 Hours) Vital Signs Temp Pulse Pulse Resp BP BP Pulse Ox 07/20/20 17:00 100 H 22 122/91 98 07/20/20 15:15 98 H 16 137/92 98 07/20/20 14:11 18 123/86 97 07/20/20 13:52 99 07/20/20 13:15 86 16 07/20/20 12:14 36.1 C L 137 H 16 153/89 H 97 Code Status & VTE Plan VTE Prophylaxis Plan VTE Prophylaxis will be ordered: Yes Supervising Physician Co-Signing Physician Notes 39-year-old woman with history of hypothyroidism who presents with symptoms of alcohol withdrawal. History as detailed by Keisha JUÁREZ, notable for daily alcohol intake with symptoms of withdrawal [tremors which affects balance on her feet]. Last drink was this morning. Physical examination General: Well nourished, well hydrated, no acute distress and not ill appearing Eyes: PERRL, conjunctivae normal, not pale, anicteric sclerae, EOM intact bilaterally ENMT: External ear and nose normal, oropharynx normal Neck: Normal visual inspection, no tracheal deviation, no swelling noted Respiratory: Normal respiratory effort, no respiratory distress, lungs clear to auscultation, no crackles and no wheezes Cardiovascular: Pulse is RRR. Heart Sounds: normal S1 and normal S2; no murmurs. Vessels: normal peripheral pulses Extremities: no pedal edema Gastrointestinal (Abdomen): Abdomen is not distended, soft, non-tender to palpation, no guarding, no palpable hepatosplenomegaly, normal bowel sounds Musculoskeletal: No cyanosis or clubbing, all extremities motor strength 5/5 Genitourinary: No CVA tenderness Skin: No rash noted on gross inspection, No ulcers noted Neurologic: Alert and oriented x 3, No focal weakness, sensation grossly intact, +tremors in outstretched hands Psychiatric: Alert and oriented x 3, euthymic affect Labs notable for potassium of 3.3, AST of 165, alcohol level of 287 CT abdomen pelvis show mild wall thickening of the transverse, descending and sigmoid colon, hepatic steatosis -Alcohol withdrawal -Hypokalemia Continue MVI infusion Replete potassium monitor electrolyte Manage with CIWA per protocol Started on gabapentin Continue levothyroxine follow-up TSH Patient would like psychiatry consult. Ordered Other plans as detailed by Keisha JUÁREZ
[2020-07-20] MEDS ORDERED: Ativan IV Alcohol Withdrawal--Active Protocol IV PRN (21:44)
[2020-07-20] MEDS ORDERED: LORazepam 3 MG/6 ML VIAL IV PRN (21:44)
[2020-07-20] MEDS ORDERED: GABAPENTIN 800MG ALCOHOL WITHDRAWAL LOAD PO STA (21:44)
[2020-07-20] MEDS ORDERED: GABAPENTIN 400 MG CAP PO ONE (21:44)
[2020-07-20] MEDS: D5W AND 1/2NSS 1,000 ML IV SCH (22:24)
[2020-07-20] MEDS: LORazepam 2 MG/4 ML VIAL IV PRN (23:46)
[2020-07-21] MEDS: LEVOTHYROXINE SODIUM 75 MCG TABLET PO SCH (06:26)
[2020-07-21] MEDS: GABAPENTIN 400 MG CAP PO SCH ×3 (06:26→21:07)
[2020-07-21 06:52] LABS: Albumin Globulin Ratio 0.9 (0.9-2); Albumin Level 3.2 gm/dl (3.4-5.0); BUN Creatinine Ratio 7.8 (10-20); Bilirubin,Total 1.2 mg/dl (0.2-1); Calcium 7.7 mg/dl (8.5-10.1); Creatinine Clr Calc Pharmacy 116.8 ml/min; Est GFR (African American) 138.7 ml/min; Est GFR (Non-African American) 119.7 ml/min; Globulin 3.7 gm/dl (2.5-4.0); Potassium 3.6 mmol/L (3.5-5.1); Total Protein 6.9 gm/dl (6.4-8.2)
[2020-07-21] MEDS: LORazepam 2 MG/4 ML VIAL IV PRN ×3 (07:34→14:47)
[2020-07-21] MEDS: D5W AND 1/2NSS 1,000 ML IV SCH ×2 (08:51→21:07)
[2020-07-21] MEDS ORDERED: MULTI-VITAMIN INFUSION 10 ML, THIAMINE HCL 100 MG, FOLIC ACID 1 MG in SODIUM CHLORIDE 0... IV SCH (09:00)
[2020-07-21] MEDS ORDERED: MULTI-VITAMIN INFUSION 10 ML, THIAMINE HCL 100 MG, FOLIC ACID 1 MG in SODIUM CHLORIDE 0... IV ONE (10:12)
--- NOTE | 2020-07-21 10:29 | Gastrointestinal Consultation ---
Date of Consultation July 21, 2020 Assessment & Plan (1) Colitis: Pt is a 39 y/o female admitted w ETOH intoxication, withdrawal symptoms found to have non specific colitis on CT abd/pelvis. Had reports of vomiting and diarrhea w/o GI bleeding. LFTs up likely related to ETOH use - Will re-eval when pt awake; she is asleep, just received Ativan for shakiness - Obtain stool cx and Cdiff - ETOH withdrawal, DT protocol - Will offer eventually outpt colonoscopy eval after her DC - Monitor LFTs - Pls recall GI prn Supervising Physician Co-Signing Physician Notes Late entry: patient was seen and examined with FRANCK Lee on 07/21. Her note reflects our finding and plan. ETOH daily. Some withdrawal symptoms. asking for help. LFT elevation related to ETOH intake. CT reviewed. Non- specific findings. Stool studies pending. History of Present Illness Reason for Consultation: Colitis Requesting Physician: Dr. Kimberly Pisano Attending Physician: Dr. Hoa Magaña History of Present Illness Pt is a 39 y/o female who presented yesterday w shakiness, dizziness and ETOH intoxication. Been drinking about 1-1.5 bottles of wine daily. She has reports of vomiting and diarrhea but denies signs of GI bleeding. CT abd/pelvis showed hepatic steatosis w non specific transverse, descending and sigmoid colon wall thickening, colitis, no bowel obstruction. LFTs : Tbili 1.2, AST 88, ALT 29, Alk phos 46. Lipase 109. The above was obtained from her chart review - she was asleep on exam this AM. RN reports pt had just received Ativan, very shaky but no vomiting or BMs reported overnight. Allergies Allergy/AdvReac Type Severity Reaction Status Date / Time No Known Allergies Allergy Verified 07/20/20 15:36 Home Medications Medication Instructions Recorded Confirmed Type levothyroxine 75 mcg tablet 75 mcg PO DAILY 11/12/19 07/20/20 History norethindrone 1 mg-ethinyl 1 tab PO DAILY #84 tab 11/19/19 07/20/20 Rx estradiol 20 mcg (21)-iron 75 mg (7) tablet ondansetron HCl [Zofran] 4 mg PO Q6H PRN 07/20/20 07/20/20 History Patient History Medical History Asthma Hypothyroidism Surgical History History of oral surgery tooth extraction Family History Aunt Breast cancer Paternal Grandmother (Paternal) Lymphoma Other Dyslipidemia Heart disease Hypertension Ovarian cancer Denies family history of Colorectal cancer Social History Smoking Status: Never smoker Hx Alcohol Use: Yes Alcohol type: wine Alcohol type Comment: 1 - 1.5 bottles/day Hx Substance Use: No Preferred Language: Nepali Communication Ability: Effective Keyboard Instrument Tuner Required: No Beliefs That Will Affect Care: None Current Living Situation: Spouse and Family Other Information That Helps Us Care for You: No Feels Safe at Home: Yes Safety Concerns: Feels Safe At This Time Assistive Devices: Glasses Review of Systems Review of Systems: All systems reviewed & are unremarkable except as noted in HPI & below and Unobtainable due to reduced consciousness Constitutional: as per Subjective / HPI Respiratory: no cough and no dyspnea Cardiovascular: no chest pain, no lightheadedness and no edema Gastrointestinal: no abdominal pain, no heartburn, no nausea, no vomiting, no hematemesis, no pain with swallowing, no dysphagia, no cramping, no change in stools and no melena Physical Exam Constitutional: comfortable ENMT: external ear and nose normal, oropharynx normal Respiratory: normal respiratory effort, lungs clear to auscultation Cardiovascular: RRR, no murmur, no edema Gastrointestinal (Abdomen): Inspection/Auscultation: + hypoactive bowel sounds Percussion/Palpation: abdomen soft Skin: no rashes, warm and dry no jaundice Psychiatric: A+Ox3, euthymic affect Lymphatic: no lymphedema Results & Data ([facility]) Vital Signs (Past 12 Hours) Vital Signs Temp Pulse Pulse Resp BP Pulse Ox 07/21/20 07:29 36.9 C 93 H 16 135/92 97 07/21/20 03:27 36.7 C 114 H 18 128/87 98
--- NOTE | 2020-07-21 10:40 | Hospitalist Progress Note ---
Date of Service July 21, 2020 Assessment & Plan (1) Alcohol withdrawal: (2) Elevated AST (SGOT): (3) Fatty liver: Patient presented from home with reports of dizziness, shakiness, increased alcohol use Drinking 1 - 1.5 bottles of wine/day for the past 8 months, last drink the morning of admission AST 165, signs of hepatic steatosis on CT ABD/pelvis -likely due to alcohol use Alcohol level 287 Continue withdrawal protocol with Gabapentin and Ativan Complete current MVI Monitor LFT Start daily thiamine and folate Patient will like to speak to Psychiatry (4) Colitis: CT ABD/pelvis shows signs of nonspecific colitis GI recommendations noted. Follow up stool culture and c diff Will need outpatient colonoscopy eventually (5) Depression: Denies suicidal or homicidal thoughts or plans Follow up Psychiatry consult (6) Hypothyroidism: TSH 3.29 Continue levothyroxine (7) DVT prophylaxis: SCDs Admission and Anticipated Discharge Date Admission Date: July 20, 2020 Subjective 39-year-old woman with history of hypothyroidism who presents with symptoms of alcohol withdrawal. Patient seen and examined this morning. Currently drowsy but arousable due to just receiving Ativan. Complains only of tremors and shaking prior to getting ativan Reported one episode of diarrhea Denied other symptoms Physical Exam Constitutional: + well hydrated; no acute distress Drowsy but arousable Eyes: PERRL, conjunctivae normal, anicteric sclerae ENMT: external ear and nose normal, oropharynx normal Respiratory: normal respiratory effort, lungs clear to auscultation Cardiovascular: Rate/Rhythm: regular rhythm and + tachycardic Heart Sounds: normal S1 and normal S2 Gastrointestinal (Abdomen): normal bowel sounds, soft, nontender, no hepatosplenomegaly Musculoskeletal: No pedal edema Neurologic: PERRL, EOMI, accommodation nl, no face palsy, no dysarthria Drowsy but arousable. No tremors on outstretched arm at this time Psychiatric: Drowsy but arousable Results & Data Results & Data ([facility]) Vital Signs (Past 12 Hours) Vital Signs Temp Pulse Pulse Resp BP Pulse Ox 07/21/20 07:29 36.9 C 93 H 16 135/92 97 07/21/20 03:27 36.7 C 114 H 18 128/87 98 Laboratory Results Abnormal lab results 07/20/20 07/20/20 07/20/20 Range/Units 13:00 13:00 13:00 WBC 4.02 L (4.8-10.8) K/uL RBC 3.85 L (4.2-5.4) M/uL MCV 102.3 H (80-100) fL MCH 34.5 H (25-34) pg RDW Std Deviation 53.3 H (36.4-46.3) fL MPV 10.6 H (7.4-10.4) fL Potassium 3.3 L (3.5-5.1) mmol/L Anion Gap 15.0 H (3-11) BUN (7-18) mg/dl Creatinine (0.6-1.2) mg/dl BUN/Creatinine Ratio (10-20) Glucose 66 L (70-99) mg/dl POC Glucose (70-99) mg/dl Calcium (8.5-10.1) mg/dl Total Bilirubin (0.2-1) mg/dl AST 165 H (15-37) U/L Total Protein 8.3 H (6.4-8.2) gm/dl Albumin (3.4-5.0) gm/dl Globulin 4.2 H (2.5-4.0) gm/dl Ur Specific [place] (1.000-1.030) Urine Protein (Negative) Urine Ketones (Negative) U Epithel Cells (Auto) (0-5) /lpf Salicylates < 1.7 L (2.8-20) mg/dl Acetaminophen < 2 L (10-30) ug/ml Ethyl Alcohol mg/dL (0-3) mg/dl 07/20/20 07/20/20 07/20/20 Range/Units 13:16 19:57 Unknown WBC (4.8-10.8) K/uL RBC (4.2-5.4) M/uL MCV (80-100) fL MCH (25-34) pg RDW Std Deviation (36.4-46.3) fL MPV (7.4-10.4) fL Potassium (3.5-5.1) mmol/L Anion Gap (3-11) BUN (7-18) mg/dl Creatinine (0.6-1.2) mg/dl BUN/Creatinine Ratio (10-20) Glucose (70-99) mg/dl POC Glucose 65 L* (70-99) mg/dl Calcium (8.5-10.1) mg/dl Total Bilirubin (0.2-1) mg/dl AST (15-37) U/L Total Protein (6.4-8.2) gm/dl Albumin (3.4-5.0) gm/dl Globulin (2.5-4.0) gm/dl Ur Specific [place] 1.039 H (1.000-1.030) Urine Protein 1+ H (Negative) Urine Ketones 1+ H (Negative) U Epithel Cells (Auto) >30 H (0-5) /lpf Salicylates (2.8-20) mg/dl Acetaminophen (10-30) ug/ml Ethyl Alcohol mg/dL 287.0 H (0-3) mg/dl 07/21/20 Range/Units 05:45 WBC (4.8-10.8) K/uL RBC (4.2-5.4) M/uL MCV (80-100) fL MCH (25-34) pg RDW Std Deviation (36.4-46.3) fL MPV (7.4-10.4) fL Potassium (3.5-5.1) mmol/L Anion Gap (3-11) BUN 4 L D (7-18) mg/dl Creatinine 0.54 L (0.6-1.2) mg/dl BUN/Creatinine Ratio 7.8 L (10-20) Glucose 106 H (70-99) mg/dl POC Glucose (70-99) mg/dl Calcium 7.7 L D (8.5-10.1) mg/dl Total Bilirubin 1.2 H D (0.2-1) mg/dl AST 88 H (15-37) U/L Total Protein (6.4-8.2) gm/dl Albumin 3.2 L (3.4-5.0) gm/dl Globulin (2.5-4.0) gm/dl Ur Specific [place] (1.000-1.030) Urine Protein (Negative) Urine Ketones (Negative) U Epithel Cells (Auto) (0-5) /lpf Salicylates (2.8-20) mg/dl Acetaminophen (10-30) ug/ml Ethyl Alcohol mg/dL (0-3) mg/dl (1) Alcohol withdrawal Complication of substance-induced condition: uncomplicated Qualified Code(s): F10.230 - Alcohol dependence with withdrawal, uncomplicated
[2020-07-21] MEDS ORDERED: DICYCLOMINE HCL 10 MG CAP PO PRN (11:39)
--- NOTE | 2020-07-21 12:00 | Electrocardiogram Report ---
Test Reason : Blood Pressure : / mmHG Vent. Rate : 083 BPM Atrial Rate : 083 BPM P-R Int : 154 ms QRS Dur : 078 ms QT Int : 406 ms P-R-T Axes : 061 056 056 degrees QTc Int : 477 ms Normal sinus rhythm with sinus arrhythmia Normal ECG When compared with ECG of 12-JUL-2015 03:27, T wave inversion no longer evident in Inferior leads Confirmed by Darrius Jaimes ([id number]) on 07/21/2020 12:00:00 PM Referred By: REFERRED SELF Confirmed By:George Jaimes
[2020-07-21] MEDS ORDERED: chlordiazePOXIDE HCl 25 MG CAP PO ONE (14:45)
--- NOTE | 2020-07-21 18:52 | Psychiatric Consultation ---
Date of Consultation July 21, 2020 Impression / Recommendations Impression 39-year-old female with PMH hypothyroidism, who presented the ED for alcohol withdrawal symptoms. With reports of dizziness, shakiness, increased alcohol use. Patient reports she has been drinking 1 to 1-1/2 bottles of wine nightly for the past 8 months. Patient reports his drinking in the presence of increased stressors. Alcohol withdrawal protocol noted would continue current treatment for with drawal Depression unspecified: Patient is interested in therapy, give patient outpatient resources. At this time patient is not a danger to self or others there is no evidence of suicide and patient has elected to outpatient therapy. It would be prudent to see how much of her mood continues to clear in the absence of alcohol Alcohol use continuous: Patient at this time is not interested in any inpatient rehab program because of her daughter and her job. Discussed with patient. Options for using medication to decrease cravings given that she is going back into the same situation and may not be able to stay away from the alcohol as a stressors that she has at home will persist. Options for patient to consider include naltrexone, acamprosate, Vivitrol. These medications were discussed with patient including the risks and benefits patient is interested in exploring as an outpatient with her primary care doctor. Anxiety disorder unspecified: Patient interested in therapy, Referrals will be made. At this time there is no indication that inpatient psychiatric care is needed. Inventory Assets Strengths: Verbal, educated Needs: Out patient therapy/ Rehab Risk Factors Assessment Male: No Do You Have Access To A Gun?: No Protective Factors Assessment : Yes Responsible for Young Children: Yes Supportive Family: Yes Psych History Chief Complaint "I think I will out the stress to get see me and I have been drinking ". History of Present Illness 39-year-old female with PMH hypothyroidism, who presented the ED for alcohol withdrawal symptoms. With reports of dizziness, shakiness, increased alcohol use. Patient reports she has been drinking 1 to 1-1/2 bottles of wine nightly for the past 8 months. Reports increased stressors due to marital problems and restrictions with COVID-19 and her daughter going to school. Patient reports other stressors include building a home which will be ready within the next month, her working a lot and feeling that he was not as connected to the family, as well as a stress of work combined with her daughter's change in schedule at school. Patient reports waking up in the middle the night feeling shaky and having a glass of wine. She reports that most mornings is difficult for her to get out of bed due to dizziness and shakiness. Patient reports drinking worsened in the past 9 months where she has been drinking almost daily. Patient denies suicidal thoughts homicidal thoughts patient denies hallucinations visual or auditory. Patient does admit to depression and anxiety she reports decreased interest in things she once enjoyed she reports some nervousness and anxiety about the future she also admits ambivalence about medications she is willing to go to therapy. There is no evidence of paranoia Past Psychiatric History Previous Psych History: No previous history of psychiatric admission. Patient reports taking Lexapro many years ago in college just for a few days but made her feel "horrible" Current Psychiatric Diagnosis: Mood disorder unspecified anxiety disorder unspecified, alcohol use Previous Psych Admissions: None Do You Have Access To A Gun?: No History of Previous Suicide Attempt: No Past Medication Trials: Lexapro Allergies Allergy/AdvReac Type Severity Reaction Status Date / Time No Known Allergies Allergy Verified 07/20/20 15:36 Home Medications Medication Instructions Recorded Confirmed Type levothyroxine 75 mcg tablet 75 mcg PO DAILY 11/12/19 07/20/20 History norethindrone 1 mg-ethinyl 1 tab PO DAILY #84 tab 11/19/19 07/20/20 Rx estradiol 20 mcg (21)-iron 75 mg (7) tablet ondansetron HCl [Zofran] 4 mg PO Q6H PRN 07/20/20 07/20/20 History Family History Denies Substance Abuse History Alcohol use as noted in the HPI above Personal History Living Arrangements: Home Living Arrangements Comments: Lives with her and 5-year-old daughter [facility] Completed: Graduate School 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 Beliefs That Will Affect Care: None History of Legal Problems: None Patient History Medical History Asthma Hypothyroidism Surgical History History of oral surgery tooth extraction Family History Aunt Breast cancer Paternal Grandmother (Paternal) Lymphoma Other Dyslipidemia Heart disease Hypertension Ovarian cancer Denies family history of Colorectal cancer Social History Smoking Status: Never smoker Hx Alcohol Use: Yes Alcohol type: wine Alcohol type Comment: 1 - 1.5 bottles/day Hx Substance Use: No Preferred Language: Khmer Communication Ability: Effective Sand Hauler Required: No Beliefs That Will Affect Care: None Current Living Situation: Spouse and Family Other Information That Helps Us Care for You: No Feels Safe at Home: Yes Safety Concerns: Feels Safe At This Time Assistive Devices: Glasses Physical Exam Psychiatric: Orientation: alert, oriented to person, oriented to place, oriented to time and cooperative Apperance: appropriately groomed Eye Co ntact: + fair eye contact Motor Behavior: + tremor Seen in bed gait could not be assessed. Speech: normal rate/rhythm/volume of speech; no pressured speech Affect: + depressed affect and + anxious affect Mood: + anxious mood Thought Process: goal directed thought process, linear/logical thought process and clear/coherent thought process; no flight of ideas and no looseness of associations Thought Content: no delusions and no persecution Suicidal Thoughts: denies suicidal thoughts and denies suicidal plan Homicidal Thoughts: denies homicidal thoughts and denies homicidal plan Hallucinations: no auditory hallucinations, no visual hallucinations, no tactile hallucinations and no gustatory hallucinations Cognition: recent memory grossly intact, remote memory grossly intact and attention grossly intact Estimated Intelligence: consistent with education level Insight: good insight Judgement: good judgement Vital Signs (Past 24 Hours): Last Vital Signs Temp 37.1 C 07/21/20 15:14 Pulse 117 H 07/21/20 15:14 Resp 18 07/21/20 15:14 BP 140/96 07/21/20 15:14 Pulse Ox 99 07/21/20 15:14 Physical Examination: Physical exam done by [facility] hospitalist noted and reviewed. Review of Systems All systems reviewed & are unremarkable except as noted in Subjective Results & Data (PSY) Medications Administered Lorazepam (Ativan) 2 mg in 4 mls @ 4 mls/min IV UD PRN; Protocol PRN Reason: EtOH Withdrawl AWSS Score 8,9 Stop: 08/19/20 21:43 Last Admin: 07/21/20 14:47 Dose: 4 mls/min Documented by: [id number] Admin: 07/21/20 12:00 Dose: 4 mls/min Documented by: [id number] Admin: 07/21/20 07:34 Dose: 4 mls/min Documented by: [id number] Admin: 07/20/20 23:46 Dose: 4 mls/min Documented by: [id number] Dextrose/Sodium Chloride (D5w And 1/2nss) 1,000 mls @ 100 mls/hr IV .Q10H PARKER Stop: 08/19/20 21:43 Last Infusion: 07/21/20 11:00 Dose: 100 mls/hr Documented by: [id number] Infusion: 07/21/20 08:53 Dose: 0 mls/hr Documented by: [id number] Admin: 07/21/20 08:51 Dose: 100 mls/hr Documented by: [id number] Infusion: 07/21/20 08:24 Dose: 100 mls/hr Documented by: [id number] Admin: 07/20/20 22:24 Dose: 100 mls/hr Documented by: [id number] Levothyroxine Sodium (Levothyroxine Sodium 75 Mcg Tablet) 75 mcg PO DAILYBB [facility] Stop: 08/20/20 06:29 Last Admin: 07/21/20 06:26 Dose: 75 mcg Documented by: [id number] Miscellaneous ( Fe: Order Awaiting Action) 1 ea N/A QS [facility] Stop: 08/20/20 07:59 Last Admin: 07/21/20 17:10 Dose: Not Given Documented by: [id number] Admin: 07/21/20 16:51 Dose: Not Given Documented by: [id number] Coding Level of Care Code 95052 U Intl Hosp Care Lvl 2
[2020-07-21] MEDS: LORazepam 1 MG/2 ML VIAL IV PRN (21:06)
[2020-07-22] MEDS: D5W AND 1/2NSS 1,000 ML IV SCH (04:34)
[2020-07-22] MEDS: GABAPENTIN 400 MG CAP PO SCH (06:21)
[2020-07-22] MEDS: LEVOTHYROXINE SODIUM 75 MCG TABLET PO SCH (06:22)
[2020-07-22 06:30] LABS: Hematocrit (blood only) 36.3 % (37-47); Hemoglobin 12.1 g/dL (12.0-16.0); Mean Corpuscular Hemoglobin 34.5 pg (25-34); Mean Corpuscular Hgb Conc 33.3 g/dL (32-36); Mean Corpuscular Volume 103.4 fL (80-100); Mean Platelet Volume 10.9 fL (7.4-10.4); Platelet Count 131 K/uL (130-400); RDW Coefficient of Variation 13.8 % (11.5-14.5); RDW Standard Deviation 51.6 fL (36.4-46.3); Red Blood Count 3.51 M/uL (4.2-5.4); White Blood Count 4.11 K/uL (4.8-10.8)
[2020-07-22 07:18] LABS: Alanine Aminotransferase 29 U/L (12-78); Albumin Globulin Ratio 0.9 (0.9-2); Albumin Level 3.3 gm/dl (3.4-5.0); Alkaline Phosphatase 46 U/L (45-117); Aspartate Aminotransferase 75 U/L (15-37); BUN Creatinine Ratio 6.9 (10-20); Bilirubin,Total 1.1 mg/dl (0.2-1); Blood Urea Nitrogen 3 mg/dl (7-18); Calcium 8.7 mg/dl (8.5-10.1); Carbon Dioxide 24 mmol/L (21-32); Chloride 108 mmol/L (98-107); Creatinine Clr Calc Pharmacy 150.2 ml/min; Est GFR (African American) > 150.0 ml/min; Globulin 3.8 gm/dl (2.5-4.0); Glucose 73 mg/dl (70-99); Magnesium 2.1 mg/dl (1.8-2.4); Phosphorus 3.7 mg/dl (2.5-4.9); Sodium 140 mmol/L (136-145); Total Protein 7.1 gm/dl (6.4-8.2)
[2020-07-22] MEDS: THIAMINE HCL 100 MG TAB PO SCH (07:50)
[2020-07-22] MEDS: LORazepam 2 MG/4 ML VIAL IV PRN ×2 (07:50→19:59)
[2020-07-22] MEDS: FOLIC ACID 1 MG TAB PO SCH (07:50)
[2020-07-22] MEDS ORDERED: chlordiazePOXIDE ALCOHOL WITHDRAWL 50MG PO STA (08:49)
[2020-07-22] MEDS: NSS + 20MEQ KCL 20 MEQ/1,000 ML BAG IV SCH (09:28)
[2020-07-22] MEDS: POTASSIUM CHLORIDE CRTAB 20 MEQ TABCR PO SCH ×2 (09:35→19:58)
[2020-07-22] MEDS: chlordiazePOXIDE HCl 25 MG CAP PO SCH ×3 (09:36→19:58)
[2020-07-22] MEDS ORDERED: IBUPROFEN 600 MG TAB PO PRN (10:39)
--- NOTE | 2020-07-22 17:00 | Hospitalist Progress Note ---
Date of Service July 22, 2020 Assessment & Plan (1) Alcohol withdrawal: (2) Elevated AST (SGOT): (3) Fatty liver: per admitting service notes: Patient presented from home with reports of dizziness, shakiness, increased alcohol use Drinking 1 - 1.5 bottles of wine/day for the past 8 months, last drink the morning of admission AST 165, signs of hepatic steatosis on CT ABD/pelvis -likely due to alcohol use Alcohol level 287 transitioned to Librium protocol in light of elevated AWSS with Gabapentin seems to be responding well continue IV Ativan continue IV fluids, thiamine, folate PT/OT evaluation patient prefers outpatient alcohol cessation program for now will consider inpatient treatment if not successful Psych SVC recommends Naloxone upon discharge (4) Colitis: CT ABD/pelvis shows signs of nonspecific colitis GI recommendations noted. stool culture and c diff: negative Will need outpatient colonoscopy eventually (5) Depression: Denies suicidal or homicidal thoughts or plans Psych SVC consulted: no indication for inpatient treatment recommend Naloxone for alcohol cessation upon discharge appreciate the recommendations (6) Hypothyroidism: TSH 3.29 Continue levothyroxine (7) DVT prophylaxis: SCDs for now Disposition: anticipate return home when stable after completion of Librium protocol- Monday needs PCP, Psych SVC ff up needs outpatient Alcohol Cessation program plan of care discussed with patient in detail and at length all questions answered she is understanding, agreeable, comfortable with the plan of care Admission and Anticipated Discharge Date Admission Date: July 20, 2020 Subjective ff up for alcohol withdrawal etc seen resting in bed, sleeping but easily awakened oriented x 3, calm, cooperative, pleasant, good eye contact, conversant states she feels ok just weak, drowsy no tremors, confusion, sweating, hallucinations no chest pain, dyspnea, palpitations, dizziness states mood is ok- just anxious about medical condition reports diarrhea 3 episode- chronic no other symptoms Review of Systems Review of Systems: All systems reviewed & are unremarkable except as noted in Subjective Physical Exam Physical Exam: General- oriented x 3, not in distress, speaks in sentences with no effort or accessory muscle use somewhat weak Eyes- anicteric Neck- no JVD Lungs- clear breath sounds bilaterally, no rales/wheezes Heart- normal rate, regular rhythm; no murmurs Abdomen- normal bowel sounds, nondistended, soft, nontender Extremities- no pretibial edema, no calf tenderness Neuro- alert, oriented x 3; no gross focal neurologic deficits Skin- warm & dry Results & Data Results & Data ([facility]) Vital Signs (Past 12 Hours) Vital Signs Temp Pulse Resp BP Pulse Ox 07/22/20 16:00 36.8 C 74 18 131/69 97 07/22/20 15:00 37 C 106 H 20 110/62 99 07/22/20 11:30 36.8 C 84 17 127/86 98 07/22/20 07:29 36.8 C 86 18 137/92 97 (1) Alcohol withdrawal Complication of substance-induced condition: uncomplicated Qualified Code(s): F10.230 - Alcohol dependence with withdrawal, uncomplicated
[2020-07-23] MEDS ORDERED: GABAPENTIN 400 MG CAP PO SCH
[2020-07-23] MEDS: NSS + 20MEQ KCL 20 MEQ/1,000 ML BAG IV SCH ×2 (00:26→14:18)
[2020-07-23] MEDS: LORazepam 0.5 MG/1 ML VIAL IV PRN (01:51)
[2020-07-23] MEDS: chlordiazePOXIDE HCl 25 MG CAP PO SCH ×3 (04:06→16:15)
[2020-07-23] MEDS: LEVOTHYROXINE SODIUM 75 MCG TABLET PO SCH (05:54)
[2020-07-23 06:32] LABS: Albumin Level 3.5 gm/dl (3.4-5.0); BUN Creatinine Ratio 8.6 (10-20); Creatinine Clr Calc Pharmacy 131.5 ml/min; Est GFR (African American) 144.2 ml/min; Est GFR (Non-African American) 124.4 ml/min; Potassium 3.7 mmol/L (3.5-5.1)
[2020-07-23 06:34] LABS: Albumin Globulin Ratio 0.9 (0.9-2); Bilirubin,Total 0.9 mg/dl (0.2-1); Globulin 3.7 gm/dl (2.5-4.0); Total Protein 7.2 gm/dl (6.4-8.2)
[2020-07-23] MEDS: FOLIC ACID 1 MG TAB PO SCH (08:53)
[2020-07-23] MEDS: THIAMINE HCL 100 MG TAB PO SCH (08:53)
[2020-07-23] MEDS: POTASSIUM CHLORIDE CRTAB 20 MEQ TABCR PO SCH (08:55)
[2020-07-23] MEDS ORDERED: LORazepam 3 MG/6 ML VIAL IV PRN (12:15)
[2020-07-23] MEDS ORDERED: LORazepam 1 MG/2 ML VIAL IV STA (12:15)
[2020-07-23] MEDS ORDERED: LORazepam 1 MG/2 ML VIAL IV PRN (12:15)
[2020-07-23] MEDS ORDERED: Ativan IV Alcohol Withdrawal--Active Protocol IV PRN (12:15)
[2020-07-23] MEDS ORDERED: LORazepam 2 MG/4 ML VIAL IV PRN (12:15)
[2020-07-23] MEDS ORDERED: LORazepam 1 MG TAB PO STA (12:18)
[2020-07-23] MEDS: NALTREXONE HCL 50 MG TAB PO SCH (12:39)
--- NOTE | 2020-07-23 12:42 | Hospitalist Progress Note ---
Date of Service July 23, 2020 Assessment & Plan (1) Alcohol withdrawal: (2) Elevated AST (SGOT): (3) Fatty liver: per admitting service notes: Patient presented from home with reports of dizziness, shakiness, increased alcohol use Drinking 1 - 1.5 bottles of wine/day for the past 8 months, last drink the morning of admission AST 165, signs of hepatic steatosis on CT ABD/pelvis -likely due to alcohol use Alcohol level 287 transitioned to Librium protocol in light of elevated AWSS with Gabapentin continues to improve, needs to be observed further Day 4 since last drink continue Ativan continue IV fluids, thiamine, folate PT/OT evaluation patient prefers outpatient alcohol cessation program for now will consider inpatient treatment if not successful Psych SVC recommends Naloxone - 25mg po daily x 1 week, then BID x 1 week, then ff up with Psych provider as outpatient (4) Colitis: CT ABD/pelvis shows signs of nonspecific colitis GI recommendations noted. stool culture and c diff: negative Will need outpatient colonoscopy eventually (5) Depression: Denies suicidal or homicidal thoughts or plans Psych SVC consulted: no indication for inpatient treatment recommend Naloxone for alcohol cessation upon discharge appreciate the recommendations (6) Hypothyroidism: TSH 3.29 Continue levothyroxine (7) DVT prophylaxis: SCDs for now Disposition: anticipate return home when stable after completion of Librium protocol- possibly tomorrow needs PCP, Psych SVC ff up needs outpatient Alcohol Cessation program plan of care discussed with patient in detail and at length all questions answered she is understanding, agreeable, comfortable with the plan of care Admission and Anticipated Discharge Date Admission Date: July 20, 2020 Subjective ff up for alc withdrawal etc seen resting in bed, not in distress appears less weak today oriented x 3 states she feels improved today less weak less tremors, no sweating was disoriented yesterday for a few seconds denies hallucinations appetite is good wasnt able to get sleep last night due to noise, activity initially patient requested to be discharged after explanation, patient decided to stay for further observation and treatment Review of Systems Review of Systems: All systems reviewed & are unremarkable except as noted in Subjective Physical Exam Physical Exam: General- oriented x 3, not in distress, speaks in sentences with no effort or accessory muscle use Eyes- anicteric Neck- no JVD Lungs- clear BS bilaterally Heart- normal rate, regular rhythm; no murmurs Abdomen- normal bowel sounds, nondistended, soft, nontender Extremities- no pretibial edema, no calf tenderness mild tremors Neuro- alert, oriented x 3; no gross focal neurologic deficits Skin- warm & dry Psych- affect somewhat flat but conversant, pleasant Results & Data Results & Data ([facility]) Vital Signs (Past 12 Hours) Vital Signs Temp Pulse Resp BP BP Pulse Ox 07/23/20 12:00 36.6 C 90 20 138/78 98 07/23/20 11:45 36.9 C 97 H 23 130/95 134/97 98 07/23/20 07:28 36.9 C 97 H 23 134/97 98 07/23/20 04:08 36.9 C 89 17 133/101 H 100 07/23/20 01:55 108 H 20 130/95 96 Laboratory Results Laboratory Results - last 24 hr 07/23/20 05:36 Sodium 140 Potassium 3.7 D Chloride 110 H Carbon Dioxide 26 Anion Gap 4.0 BUN 4 L Creatinine 0.48 L Est Cr Clr Drug Dosing 131.5 Est GFR ( Amer) 144.2 Est GFR (Non-Af Amer) 124.4 BUN/Creatinine Ratio 8.6 L Glucose 75 Calcium 9.0 Total Bilirubin 0.9 AST 56 H ALT 32 Alkaline Phosphatase 47 Total Protein 7.2 Albumin 3.5 Globulin 3.7 Albumin/Globulin Ratio 0.9 (1) Alcohol withdrawal Complication of substance-induced condition: uncomplicated Qualified Code(s): F10.230 - Alcohol dependence with withdrawal, uncomplicated
[2020-07-23] MEDS: LORazepam 2 MG/4 ML VIAL IV PRN (15:14)
[2020-07-23] MEDS: LORazepam 1 MG/2 ML VIAL IV PRN (20:35)
[2020-07-24] MEDS: chlordiazePOXIDE HCl 25 MG CAP PO SCH ×3 (00:07→17:53)
[2020-07-24] MEDS: LEVOTHYROXINE SODIUM 75 MCG TABLET PO SCH (05:52)
[2020-07-24] MEDS: LORazepam 0.5 MG/1 ML VIAL IV PRN (05:52)
[2020-07-24] MEDS: POTASSIUM CHLORIDE CRTAB 20 MEQ TABCR PO SCH (08:17)
[2020-07-24] MEDS: NALTREXONE HCL 50 MG TAB PO SCH (08:17)
[2020-07-24] MEDS: FOLIC ACID 1 MG TAB PO SCH (08:17)
[2020-07-24] MEDS: THIAMINE HCL 100 MG TAB PO SCH (08:17)
[2020-07-24 08:44] LABS: Albumin Level 3.6 gm/dl (3.4-5.0); Calcium 9.9 mg/dl (8.5-10.1); Creatinine Clr Calc Pharmacy 103.4 ml/min; Est GFR (African American) 133.3 ml/min; Potassium 3.5 mmol/L (3.5-5.1)
[2020-07-24 08:47] LABS: Albumin Globulin Ratio 0.8 (0.9-2); Bilirubin,Total 0.8 mg/dl (0.2-1); Globulin 4.3 gm/dl (2.5-4.0); Total Protein 7.9 gm/dl (6.4-8.2)
[2020-07-24] MEDS: LORazepam 1 MG/2 ML VIAL IV PRN (11:06)
[2020-07-24] MEDS ORDERED: GABAPENTIN 400 MG CAP PO SCH (12:00)
--- NOTE | 2020-07-24 16:54 | Hospitalist Progress Note ---
Date of Service July 24, 2020 Assessment & Plan (1) Alcohol withdrawal: (2) Elevated AST (SGOT): (3) Fatty liver: per admitting service notes: Patient presented from home with reports of dizziness, shakiness, increased alcohol use Drinking 1 - 1.5 bottles of wine/day for the past 8 months, last drink the morning of admission AST 165, signs of hepatic steatosis on CT ABD/pelvis -likely due to alcohol use Alcohol level 287 transitioned to Librium protocol in light of elevated AWSS with Gabapentin continues to improve gradually will finish Librium taper tomorrow AM continue Ativan continue thiamine, folate PT/OT evaluation patient prefers outpatient alcohol cessation program for now will consider inpatient treatment if not successful Psych SVC recommends Naloxone - 25mg po daily x 1 week, then BID x 1 week, then ff up with Psych provider as outpatient (4) Colitis: CT ABD/pelvis shows signs of nonspecific colitis GI recommendations noted. stool culture and c diff: negative Will need outpatient colonoscopy eventually (5) Depression: Denies suicidal or homicidal thoughts or plans Psych SVC consulted: no indication for inpatient treatment recommend Naloxone for alcohol cessation upon discharge appreciate the recommendations (6) Hypothyroidism: TSH 3.29 Continue levothyroxine (7) DVT prophylaxis: SCDs for now Disposition: anticipate return home when stable after completion of Librium protocol- possibly tomorrow needs PCP, Psych SVC ff up needs outpatient Alcohol Cessation program plan of care discussed with patient and her Arnel in detail and at length all questions answered she is understanding, agreeable, comfortable with the plan of care Admission and Anticipated Discharge Date Admission Date: July 20, 2020 Subjective ff up for alcohol withdrawal, etc seen resting in bed, sitting up, comfortable alert, oriented, answers questions appropriately seems to be closer to her baseline than the past few days has mild tremors, but no confusion/hallucination reports she is ambulating better appetite is okay no other symptoms Review of Systems Review of Systems: All systems reviewed & are unremarkable except as noted in Subjective Physical Exam Physical Exam: General- oriented x 3, not in distress, speaks in sentences with no effort or accessory muscle use Eyes- anicteric Neck- no JVD Lungs- clear BS BL Heart- normal rate, regular rhythm; no murmurs Abdomen- normal bowel sounds, nondistended, soft, nontender Extremities- no pretibial edema, no calf tenderness mild hand tremors Neuro- alert, oriented x 3; no gross focal neurologic deficits Skin- warm & dry Results & Data Results & Data ([facility]) Vital Signs (Past 12 Hours) Vital Signs Temp Pulse Resp BP Pulse Ox 07/24/20 12:02 36.6 C 86 19 113/69 98 07/24/20 07:50 36.4 C L 113 H 21 118/88 98 07/24/20 05:35 36.6 C 101 H 18 129/94 100 all noted and reviewed including below Laboratory Results Laboratory Results - last 24 hr 07/24/20 08:04 Sodium 137 Potassium 3.5 Chloride 106 Carbon Dioxide 22 Anion Gap 9.0 BUN 5 L Creatinine 0.61 Est Cr Clr Drug Dosing 103.4 Est GFR ( Amer) 133.3 Est GFR (Non-Af Amer) 115.0 BUN/Creatinine Ratio 8.0 L Glucose 93 Calcium 9.9 Total Bilirubin 0.8 AST 38 H ALT 30 Alkaline Phosphatase 45 Total Protein 7.9 Albumin 3.6 Globulin 4.3 H Albumin/Globulin Ratio 0.8 L (1) Alcohol withdrawal Complication of substance-induced condition: uncomplicated Qualified Code(s): F10.230 - Alcohol dependence with withdrawal, uncomplicated
[2020-07-24] MEDS: LORazepam 2 MG/4 ML VIAL IV PRN ×2 (19:44→23:41)
[2020-07-25] MEDS: chlordiazePOXIDE HCl 25 MG CAP PO SCH (01:15)
[2020-07-25] MEDS: LEVOTHYROXINE SODIUM 75 MCG TABLET PO SCH (05:37)
[2020-07-25] MEDS: POTASSIUM CHLORIDE CRTAB 20 MEQ TABCR PO SCH (08:18)
[2020-07-25] MEDS: FOLIC ACID 1 MG TAB PO SCH (08:18)
[2020-07-25] MEDS: NALTREXONE HCL 50 MG TAB PO SCH (08:18)
[2020-07-25] MEDS: THIAMINE HCL 100 MG TAB PO SCH (08:20)
--- NOTE | 2020-07-25 10:50 | Hospitalist Progress Note ---
Date of Service July 25, 2020 Assessment & Plan (1) Alcohol withdrawal: (2) Elevated AST (SGOT): (3) Fatty liver: per admitting service notes: Patient presented from home with reports of dizziness, shakiness, increased alcohol use Drinking 1 - 1.5 bottles of wine/day for the past 8 months, last drink the morning of admission AST 165, signs of hepatic steatosis on CT ABD/pelvis -likely due to alcohol use Alcohol level 287 transitioned to Librium protocol in light of elevated AWSS with Ativan PRN clinically improved overall completed 5 days Librium taper , folate discussed case in detail and at length with patient encouraged inpatient alcohol rehab patient prefers outpatient alcohol cessation program for now will consider inpatient treatment if not successful case management discussed outpatient options for patient Psych SVC recommends Naloxone - 25mg po daily x 1 week, then BID x 1 week, then ff up with Psych provider as outpatient (4) Colitis: CT ABD/pelvis shows signs of nonspecific colitis GI recommendations noted. stool culture and c diff: negative Will need outpatient colonoscopy ff up with GI closely (5) Depression: Denies suicidal or homicidal thoughts or plans Psych SVC consulted: no indication for inpatient treatment recommend Naloxone for alcohol cessation upon discharge appreciate the recommendations (6) Hypothyroidism: TSH 3.29 Continue levothyroxine (7) DVT prophylaxis: SCDs for now Disposition: d/c home PCP, Psych SVC ff up in 1 week needs outpatient Alcohol Cessation program plan of care discussed with patient and her Arnel in detail and at length all questions answered they are understanding, agreeable, comfortable with the plan of care Admission and Anticipated Discharge Date Admission Date: July 20, 2020 Subjective ff up for alcohol withdrawal seen resting in bed, comfortable, awake, alert answers all questions appropriately appears brighter mostly back to her baseline states she feels better overall very minimal tremors, no sweating, hallucinations, confusion no depression/hallucinations no chest pain, dyspnea, palpitations, dizziness, headache no other symptoms Review of Systems Review of Systems: All systems reviewed & are unremarkable except as noted in Subjective Physical Exam Physical Exam: General- oriented x 3, not in distress, speaks in sentences with no effort or accessory muscle use Eyes- anicteric Neck- no JVD Lungs- clear breath sounds bilaterally, no rales/wheezes Heart- normal rate, regular rhythm; no murmurs Abdomen- normal bowel sounds, nondistended, soft, nontender Extremities- no pretibial edema, no calf tenderness very minimal hand tremors- baseline per patient Neuro- alert, oriented x 3; no gross focal neurologic deficits Skin- warm & dry Results & Data Results & Data ([facility]) Vital Signs (Past 12 Hours) Vital Signs Temp Pulse Resp BP BP Pulse Ox 07/25/20 10:37 36.7 C 83 20 130/93 104/67 97 07/25/20 07:37 36.7 C 83 20 104/67 97 07/24/20 23:33 36.5 C 105 H 16 116/83 99 (1) Alcohol withdrawal Complication of substance-induced condition: uncomplicated Qualified Code(s): F10.230 - Alcohol dependence with withdrawal, uncomplicated
--- NOTE | 2020-07-26 20:29 | Discharge Summary ---
Date of Service July 26, 2020 Admission HPI Per Admitting Provider 39-year-old female with PMH hypothyroidism, and other problems listed below who presents the ED with reports of dizziness, shakiness, increased alcohol use. Patient reports she has been drinking 1 to 1-1/2 bottles of wine nightly for the past 8 months. Reports increased stressors due to marital problems and restrictions with MAUDE-Blas and her daughter going to school. Patient reports waking up in the middle the night feeling shaky and having a glass of wine. She reports that most mornings is difficult for her to get out of bed due to dizziness and shakiness. Reports ongoing issues with vomiting and diarrhea. Denies abdominal pain. No hematemesis, coffee-ground emesis, bright red bleeding per rectum, dark tarry stools. Patient denies suicidal or homicidal thoughts or plans. Reports that she feels depressed. Denies chest pain, palpitations, and shortness of breath. No syncopal events. Denies fevers and chills. No urinary symptoms. Patient reports her last drink was a glass of wine at 9:00 this morning. In the ED, labs show K+ 3.3, glucose 66, AST 165, alcohol level 287. Patient was tachycardic on arrival at 137, this improved and HR currently in the low 100s. CTA chest negative for pulmonary embolism. CT ABD/pelvis shows signs of nonspecific colitis and hepatic steatosis. Patient was given lorazepam 0.5 mg IV x 2, banana bag, IV Zofran, IVF. Admission Exam Per Admitting Provider Physical examination General: Well nourished, well hydrated, no acute distress and not ill appearing Eyes: PERRL, conjunctivae normal, not pale, anicteric sclerae, EOM intact bilaterally ENMT: External ear and nose normal, oropharynx normal Neck: Normal visual inspection, no tracheal deviation, no swelling noted Respiratory: Normal respiratory effort, no respiratory distress, lungs clear to auscultation, no crackles and no wheezes Cardiovascular: Pulse is RRR. Heart Sounds: normal S1 and normal S2; no mur murs. Vessels: normal peripheral pulses Extremities: no pedal edema Gastrointestinal (Abdomen): Abdomen is not distended, soft, non-tender to palpation, no guarding, no palpable hepatosplenomegaly, normal bowel sounds Musculoskeletal: No cyanosis or clubbing, all extremities motor strength 5/5 Genitourinary: No CVA tenderness Skin: No rash noted on gross inspection, No ulcers noted Neurologic: Alert and oriented x 3, No focal weakness, sensation grossly intact, +tremors in outstretched hands Psychiatric: Alert and oriented x 3, euthymic affect Principal Diagnosis Alcohol withdrawal Discharge Exam General- oriented x 3, not in distress, speaks in sentences with no effort or accessory muscle use Eyes- anicteric Neck- no JVD Lungs- clear breath sounds bilaterally, no rales/wheezes Heart- normal rate, regular rhythm; no murmurs Abdomen- normal bowel sounds, nondistended, soft, nontender Extremities- no pretibial edema, no calf tenderness very minimal hand tremors- baseline per patient Neuro- alert, oriented x 3; no gross focal neurologic deficits Skin- warm & dry Discharge Data Allergies Allergy/AdvReac Type Severity Reaction Status Date / Time No Known Allergies Allergy Verified 07/20/20 15:36 Consultations 07/20/20 15:47 ED Decision to Admit Stat 07/20/20 21:44 Consult Gastroenterology Routine Consult Psychiatry Routine Ordered Studies 07/20/20 12:39 CT abd pelvis IV con only Stat CT OF THE ABDOMEN AND PELVIS WITH CONTRAST CLINICAL HISTORY: Abdominal pain, elevated lfts. COMPARISON STUDY: CT of the abdomen and pelvis May 06, 2015. Right upper quadrant ultrasound July 12, 2015. TECHNIQUE: Following IV administration of 120 mL of Optiray, axial images of the abdomen and pelvis were obtained from the lung bases to the proximal femurs. Images were reviewed in the axial, sagittal, and coronal planes. IV contrast was administered without complication. Automated exposure control was utilized for the study. A dose lowering technique was utilized adhering to the principles of ALARA. FINDINGS: Please note that the chest CT will be reported separately. No pneumatosis, free air or portal venous gas is noted. Hepatic steatosis is present. No hepatic lesions are identified. There is no biliary or pancreatic ductal dilatation. No peripancreatic infiltration or fluid is noted. The spleen, adrenal glands and kidneys are unremarkable. There is no hydronephrosis. The appendix is normal. Note is made of submucosal fat deposition within the ascending colon. Mild wall thickening of the sigmoid colon, descending colon and transverse colon is noted. There is also mild wall thickening of the ascending colon which is probably chronic. No free air or abscess is present. Major vasculature is patent. There is no ascites or lymphadenopathy. No acute fracture or suspicious lesion is identified within the visualized skeletal structures. IMPRESSION: 1. Mild wall thickening of the transverse colon, descending colon and sigmoid colon which suggests a nonspecific colitis, likely infectious or inflammatory. Submucosal fat deposition within the ascending colon can be seen in the setting of chronic inflammation. 2. Hepatic steatosis. 3. No bowel obstruction. Normal appendix. CT angio chest PE protocol Stat COMPARISON STUDY: Chest CTA 07/12/2015. FINDINGS: Limited views of the upper abdomen demonstrate hepatic steatosis and a normal spleen. Please refer to same day abdomen and pelvis CT for further evaluation of the abdominal structures. Normal caliber thoracic aorta with no evidence for dissection. No pleural or pericardial effusions. The heart is normal in size. No filling defects within the pulmonary arteries to suggest pulmonary embolus. No mediastinal hilar lymphadenopathy. Normal esophagus. No fractures within the visualized osseous structures. No pneumothorax. The central airways are patent. Stable 3 mm right middle lobe nodule on image 119. This is likely benign given the long-term stability. Otherwise, the lungs are clear. IMPRESSION: 1. No evidence for pulmonary embolus. 2. Hepatic steatosis. This is better appreciated on the same day abdomen and pelvis CT. CT head/brain wo con Stat Comparison: None. Findings: The paranasal sinuses and mastoid air cells are clear. The calvarium and skull base are intact. The ventricles and sulci are within normal limits. There is no mass, hematoma, midline shift, or acute infarct. Impression: No acute intracranial abnormality. Hospital Course (1) Alcohol withdrawal: (2) Elevated AST (SGOT): (3) Fatty liver: per admitting service notes: Patient presented from home with reports of dizziness, shakiness, increased alcohol use Drinking 1 - 1.5 bottles of wine/day for the past 8 months, last drink the morning of admission AST 165, signs of hepatic steatosis on CT ABD/pelvis -likely due to alcohol use Alcohol level 287 transitioned to Librium protocol in light of elevated AWSS with Ativan PRN clinically improved overall completed 5 days Librium taper , folate discussed case in detail and at length with patient encouraged inpatient alcohol rehab patient prefers outpatient alcohol cessation program for now will consider inpatient treatment if not successful case management discussed outpatient options for patient Psych [facility] [place] recommends Naloxone - 25mg po daily x 1 week, then BID x 1 week, then ff up with Psych provider as outpatient Please reevaluate fitness for driving Follow-up hepatic steatosis seen on CAT scan (4) Colitis: CT ABD/pelvis shows signs of nonspecific colitis GI recommendations noted. stool culture and c diff: negative Will need outpatient colonoscopy ff up with GI closely (5) Depression: Denies suicidal or homicidal thoughts or plans Psych [facility] consulted: no indication for inpatient treatment recommend Naloxone for alcohol cessation upon discharge appreciate the recommendations (6) Lung nodule seen on imaging study: Please refer to full report in the Ordered Studies section above Further work up, management, and ff up as outpatient (7) Hypothyroidism: TSH 3.29 Continue levothyroxine (8) DVT prophylaxis: SCDs Disposition: d/c home PCP, Psych [facility] ff up in 1 week needs outpatient Alcohol Cessation program plan of care discussed with patient and her Arnel in detail and at length all questions answered they are understanding, agreeable, comfortable with the plan of care Total Time Total Time Spent Total Time Spent (In Minutes): 60 minutes Discharge Plan Discharge Items Patient Disposition: Home - Self-Care Reason For Visit: ALCOHOL WITHDRAWAL Discharge Diagnosis: ALCOHOL WITHDRAWAL Activity: As commented below Activity Comment: RESUME ACTIVITY TOLERATED Lifting: Wait until after follow-up appointment Exercise/Sports: Wait until after follow-up appointment Driving/Machine Use: NO DRIVING UNTIL RE-EVALUATED AND ALLOWD BY PRIMARY CARE PHYSICIAN Non-emergency contact: Primary Care Provider Call non-emergency contact if: you have any medication questions, your symptoms worsen and you have a fever Follow-up/Referrals: [facility] [Outside] - 07/27/20 4:30 pm (intake appointment is in person. If this day and time is inconvenient, please call to reschedule. ) Greer Capone PA-C [Primary Care Provider] - 07/27/20 11:20 am (Date & Time 07/27/2020 11:20 AM Provider Kathy Hernandez [facility] ) Diet: Low Fiber, Low Fat and Lactose Intolerant Addtl Attending Provider Instructions: PLEASE REFER TO YOUR NEW MEDICATION LIST AND FOLLOW INSTRUCTIONS CAREFULLY. YOU HAVE ALREADY COMPLETED THE LIBRIUM TAPER PROTOCOL AND DO NOT NEED ADDITIONAL DOSES. MAKE SURE TO DRINK PLENTY OF FLUIDS. TAKE POTASSIUM RICH FOOD- BANANAS, ORANGES, POTATOES, TOMATOES. RETURN TO THE ER IMMEDIATELY IF YOU HAVE WORSENING OF TREMORS, SWEATING, CONFUSION, HALLUCINATIONS. ALWAYS HAVE A STRUCTURAL BIOLOGIST AT HOME AT LEAST FOR THE NEXT 2 DAYS. FOLLOW UP WITH PCP AND WITH [facility] ON MONDAY SCHEDULED. FOLLOW UP WITH [facility] IN 2 WEEKS. NO ALCOHOL AND SMOKING. TAKE CARE ALWAYS. Pending Studies at Discharge: No Stand-Alone Forms: My [facility], Smoking Cessation Medications and DC Order Prescriptions: New dicyclomine 10 mg Capsule 10 mg PO TID PRN (Reason: abdominal pain) Qty: 20 RF: 0 thiamine HCl (vitamin B1) [Vitamin B-1] 100 mg Tablet 100 mg PO QAM Qty: 7 RF: 0 potassium chloride [Klor-Con M20] 20 mEq Tablet,Er Particles/Crystals 40 meq PO DAILY Qty: 14 RF: 0 folic acid 1 mg Tablet 1 mg PO QAM Qty: 7 RF: 0 multivitamin Tablet 1 tab PO DAILY Qty: 30 RF: 0 Continued levothyroxine 75 mcg tablet 75 mcg PO DAILY RF: 0 norethindrone-e.estradiol-iron [Junel FE 03/25 (28)] 1 mg-20 mcg (21)/75 mg (7) tablet 1 tab PO DAILY Qty: 84 RF: 4 ondansetron HCl [Zofran] 4 mg Tablet 4 mg PO Q6H PRN (Reason: Nausea) RF: 0 Discharge Orders: Discharge Order (Routine); Ordered 07/25/20 Ordered By: Alcon Perez Admission Data Admit Date/Time: 07/20/20 16:12 Attending Provider: Alcon Perez Admit Provider: Kimberly Pisano I. Primary Care Provider: Greer Capone Other Providers: Kimberly Pisano I. ; Hoa Magaña ; Makayla Carpio Other Interventions: Discharge Summary Assessment (RN) Last Done: 07/25/20 10:37
== END 2020-07-25 11:12 | disposition home or self-care (01) ==
LOC: ED 12:11 → SUATTDRO 16:12 → 2E 16:12

== ENCOUNTER 2021-03-06 10:09 | Inpatient (IN) ==
--- NOTE | 2021-03-06 11:11 | Emergency Department Note ---
Impression & Plan Acute confusion, Alcohol withdrawal, Dehydration, Hyperammonemia ED Provider Note NAME: ALEXA BOWEN AGE: 40 SEX: F : 1980 ARRIVES VIA: Walk-In INFORMANT: [Patient] ED PROVIDER(S): [Rocco Salazar MD] CHIEF COMPLAINT: Neuro symptoms HISTORY OF PRESENT ILLNESS: The patient is a 40-year-old female who presents to the ER with weakness and feeling off balance. 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 The patient had a leave of absence from work late last year because of issues with alcoholism and alcohol withdrawal. She has since returned to work. The patient admits that she has stopped seeing her counselor but did schedule an appointment for this upcoming week. The patient admits that she began drinking alcohol socially over the holidays, the . She admits that she was quite intoxicated on . Patient last had alcohol 5 days ago. The patient did see her family physician 2 days ago because of difficulty with balance and shaking. She had laboratory work done and her LFTs were elevated. The patient has continued to have difficulty with balance and shaking. She feels like she is falling. She has another appointment this upcoming week with her family doctor. The patient admits that last evening, around 10 PM, she took Ativan, 0.5 mg, that is prescribed to her. She was hoping this would help with sleep. She took a second 0.5 mg Ativan tablet at around midnight. The patient woke at 3 AM feeling off balance and things were spinning. She tried to go back to sleep but at 5 AM, she noticed the same symptoms. The patient called into the ED to speak to the charge nurse this morning. She was concerned about medication. She did not seem to be coherent in her explanation for the reason for the call. The patient then spoke with an in- house pharmacist and there were concerns for her mental state and thinking capacity. The charge nurse and pharmacist did speak with me this morning and had serious concerns for fitness for duty. The patient is scheduled to work today in this ED. The patient was called at home, she was told to report to this ED for an evaluation. The patient does admit to drinking alcohol heavily over and she is concerned that she may be going through some withdrawal. She is worried about alcoholic hepatitis as well. She states that she has lost 13 pounds in 6 mon ths. She has no appetite. She is always shaky and off balance. Because of how she was feeling, the patient did call off work yesterday. The patient is willing to have fitness for duty testing run. She is also asking for more of a medical work-up to try and explain some of her complaints. REVIEW OF SYSTEMS: See HPI for pertinent positives and negatives. A total of ten systems were reviewed and were otherwise negative. PMHx/PSHx: See Below SOCIAL HISTORY: See Below. PHYSICAL EXAM: GENERAL: Patient is in no acute distress. Very thin. HEENT: No acute trauma, normocephalic atraumatic, mucous membranes moist, no nasal congestion, no scleral icterus. Pupils equal round and reactive to light. No nystagmus. NECK: No stridor, no adenopathy, no meningismus, trachea is midline. LUNGS: Clear to auscultation bilaterally, no wheeze, no rhonchi, breath sounds equal. HEART: Tachycardic, regular rhythm, no murmurs. ABDOMEN: Soft, nontender, bowel sounds positive, no hernias, no peritonitis. EXTREMITIES: No cyanosis or edema, full range of motion of all the joints without pain or difficulty, no signs for acute trauma. NEUROLOGIC: Oriented x 3, no acute motor or sensory deficits, no focal weakness. No speech slur or extremity drift, no cerebellar dysfunction. She has gen eralized extremity and body shaking. The patient is able to walk without falling but has extreme difficulty with [id number] walking. She seems quite off balance with this type of gait. SKIN: No rash, no jaundice, no diaphoresis. Psychiatric: Cooperative, voluntary. Somewhat of a flattened affect. DIFFERENTIAL DIAGNOSIS: Medication abuse, alcohol abuse, alcohol withdrawal, electrolyte imbalance, liver or renal failure, stroke, infection, among others. EMERGENCY DEPARTMENT COURSE/PROCEDURES: MEDICAL DECISION MAKING: There is no leukocytosis or concerning anemia. There is a normal platelet count. No coagulopathy. Sodium and potassium are both slightly low but not in need of emergent correction. No kidney failure. There were some liver enzyme elevations however, the alk phos was normal. Ammonia level was high at 46. TSH was elevated however, the T4 was normal. testing was negative. Urina lysis did not suggest infection. Urine tox was negative. Alcohol level was undetectable. Covid testing returned negative. Chest film did not show pneumonia, cardiomegaly or CHF. Brain MRI did not show any stroke or mass lesion. On exam, the patient was quite shaky and jittery. She seemed off balance. She did not appear confused but admits to being quite confused earlier today. Patient received IV saline, 1 L. She received IV Zofran for nausea. The patient presents with some confusion noted earlier. She has a history of alcohol abuse and withdrawal. She appears to be in alcohol withdrawal now. The elevated ammonia level is likely contributing to the confusion reported. The Ativan taken last night to help with sleep may have contributed to the confusion. The patient is in need of a hospital stay. She would benefit from further care/observation. 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 I did speak with case management, I talked to the patient about her findings, the on-call hospitalist was consulted. Past Med/Surg History Medical History Alcohol withdrawal Asthma Hypothyroidism Surgical History History of oral surgery tooth extraction Family History Aunt Breast cancer Paternal Grandmother (Paternal) Lymphoma Other Dyslipidemia Heart disease Hypertension Ovarian cancer Denies family history of Colorectal cancer Social History Smoking Status: Never smoker Hx Alcohol Use: Yes Alcohol type: wine Alcohol type Comment: 1 - 1.5 bottles/day Hx Substance Use: No Preferred Language: Greek Communication Ability: Effective Mangle Catcher Required: No Beliefs That Will Affect Care: None Current Living Situation: Spouse and Family Feels Safe at Home: Yes Assistive Devices: None Allergies Allergies Allergy/AdvReac Type Severity Reaction Status Date / Time No Known Allergies Allergy Verified 03/06/21 11:56 Home Meds Home Medications Medication Instructions Recorded Confirmed levothyroxine 75 mcg tablet 75 mcg PO DAILY 11/12/19 03/06/21 ondansetron HCl 4 mg tablet 4 mg PO Q6H PRN 07/20/20 03/06/21 (Zofran) lorazepam 0.5 mg tablet 0.5 mg PO Q6H 03/06/21 03/06/21 prednisone 10 mg tablet 10 mg PO UD 03/06/21 03/06/21 propranolol 10 mg tablet 10 mg PO BID 03/06/21 03/06/21 Previous Rx's Medication Instructions Recorded multivitamin 1 tab PO DAILY #30 tab 07/23/20 Results & Data (ED) Vital Signs Vital Signs - 24 hr 03/06/21 10:10 03/06/21 11:10 03/06/21 11:30 Temperature 36.6 C Temperature Source Temporal Artery Scan Pulse Rate 98 H 82 85 Pulse Rate [Finger] Pulse Rate from SpO2 Sensor Pulse Rhythm Regular Pulse Strength Normal Respiratory Rate 18 20 17 Respiratory Effort / Characteristics Non-Labored Spontaneous Respiratory Depth Normal Respiratory Pattern Regular Blood Pressure 141/97 H Blood Pressure [Left Arm] Blood Pressure Mean 111 Blood Pressure Mean [Left Arm] Blood Pressure Position Sitting Pulse Oximetry 99 Oxygen Delivery Method Room Air Sepsis Recent Fever Within 48 Hours No Sepsis New/Unexplained Change in Mental Status No Sepsis Action Taken by Nursing No Action Required 03/06/21 11:56 03/06/21 11:57 03/06/21 12:38 Temperature Temperature Source Pulse Rate 90 98 H Pulse Rate [Finger] Pulse Rate from SpO2 Sensor Pulse Rhythm Pulse Strength Respiratory Rate 22 22 Respiratory Effort / Characteristics Respiratory Depth Respiratory Pattern Blood Pressure 128/88 141/115 H Blood Pressure [Left Arm] Blood Pressure Mean 101 123 Blood Pressure Mean [Left Arm] Blood Pressure Position Pulse Oximetry Oxygen Delivery Method Sepsis Recent Fever Within 48 Hours Sepsis New/Unexplained Change in Mental Status Sepsis Action Taken by Nursing 03/06/21 13:00 03/06/21 14:36 03/06/21 15:00 Temperature Temperature Source Pulse Rate 86 74 99 H Pulse Rate [Finger] 76 Pulse Rate from SpO2 Sensor 85 75 Pulse Rhythm Pulse Strength Respiratory Rate 22 14 28 H Respiratory Effort / Characteristics Respiratory Depth Respiratory Pattern Blood Pressure 134/87 155/97 H 127/85 Blood Pressure [Left Arm] 155/97 H Blood Pressure Mean 102 116 99 Blood Pressure Mean [Left Arm] 116 Blood Pressure Position Pulse Oximetry 98 98 Oxygen Delivery Method Room Air Sepsis Recent Fever Within 48 Hours Sepsis New/Unexplained Change in Mental Status Sepsis Action Taken by Nursing 03/06/21 15:21 03/06/21 15:22 Temperature Temperature Source Pulse Rate Pulse Rate [Finger] 81 Pulse Rate from SpO2 Sensor Pulse Rhythm Pulse Strength Respiratory Rate 19 Respiratory Effort / Characteristics Respiratory Depth Respiratory Pattern Blood Pressure Blood Pressure [Left Arm] 129/95 Blood Pressure Mean Blood Pressure Mean [Left Arm] 106 Blood Pressure Position Pulse Oximetry 98 Oxygen Delivery Method Room Air Room Air Sepsis Recent Fever Within 48 Hours Sepsis New/Unexplained Change in Mental Status Sepsis Action Taken by Residential Medications Current Medication List: was personally reviewed by me Laboratory Data Attestation: I reviewed the patient's lab results. Result diagrams: 03/06/21 10:58 03/06/21 10:56 Lab Results 03/06/21 03/06/21 03/06/21 Range/Units 10:56 10:56 10:56 WBC (4.8-10.8) K/uL RBC (4.2-5.4) M/uL Hgb (12.0-16.0) g/dL Hct (37-47) % MCV (80-100) fL MCH (25-34) pg MCHC (32-36) g/dL RDW Std Deviation (36.4-46.3) fL RDW Coeff of Tan (11.5-14.5) % Plt Count (130-400) K/uL MPV (7.4-10.4) fL Immature Gran % (Auto) % Neut % (Auto) % Lymph % (Auto) % [facility] % (Auto) % Eos % (Auto) % Baso % (Auto) % Neut # (Auto) (1.4-6.5) K/uL Lymph # (Auto) (1.2-3.4) K/uL [facility] # (Auto) (0.11-0.59) K/uL Eos # (Auto) (0-0.5) K/uL Baso # (Auto) (0-0.2) K/uL Immature Gran # (Auto) (0.00-0.02) K/uL PT 9.8 (9.0-12.0) Seconds INR 1.0 (0.9-1.1) APTT 24.8 (21.0-31.0) Seconds PTT Ratio 0.9 Sodium 135 L (136-145) mmol/L Potassium 3.4 L (3.5-5.1) mmol/L Chloride 103 (98-107) mmol/L Carbon Dioxide 27 (21-32) mmol/L Anion Gap 5.0 (3-11) BUN 5 L (7-18) mg/dl Creatinine 0.70 (0.6-1.2) mg/dl Est Cr Clr Drug Dosing 81.3 ml/min Est GFR ( Amer) 126.5 ml/min Est GFR (Non-Af Amer) 109.1 ml/min BUN/Creatinine Ratio 6.5 L (10-20) Glucose 88 (70-99) mg/dl Calcium 9.8 (8.5-10.1) mg/dl Phosphorus 3.9 (2.5-4.9) mg/dl Magnesium 2.1 (1.8-2.4) mg/dl Total Bilirubin 1.4 H (0.2-1) mg/dl AST 110 H (15-37) U/L ALT 86 H (12-78) Alkaline Phosphatase 73 (45-117) U/L Ammonia 46.0 H (11-32) umol/L Total Protein 9.1 H (6.4-8.2) gm/dl Albumin 4.4 (3.4-5.0) gm/dl Globulin 4.7 H (2.5-4.0) gm/dl Albumin/Globulin Ratio 0.9 (0.9-2) TSH 6.680 H (0.300-4.500) uIu/ml Free T4 0.87 (0.8-1.6) ng/dl HCG, Qual (Negative) Urine Color Urine Appearance (Clear) Urine pH (4.5-7.5) Ur Specific [place] (1.000-1.030) Urine Protein (Negative) Urine Glucose (UA) (Negative) Urine Ketones (Negative) Urine Blood (Negative) Urine Nitrite (Negative) Urine Bilirubin (Negative) Urine Urobilinogen (Negative) Ur Leukocyte Esterase (Negative) Urine Opiates Screen (Neg) Ur Methadone, Qual (Neg) Urine Barbiturates (Neg) Ur Phencyclidine (PCP) (Neg) U Amphetamin/Meth Scrn (Neg) MDMA (Ecstasy) Screen (Neg) U Benzodiazepines Scrn (Neg) Ur Cocaine Metabolite (Neg) U Marijuana (THC) Screen (Neg) Ethyl Alcohol mg/dL (0-3) mg/dl SARS-CoV-2, RNA, NAAT (NEGATIVE) 03/06/21 03/06/21 03/06/21 Range/Units 10:56 10:58 10:58 WBC 5.91 (4.8-10.8) K/uL RBC 4.24 (4.2-5.4) M/uL Hgb 13.9 (12.0-16.0) g/dL Hct 41.0 (37-47) % MCV 96.7 (80-100) fL MCH 32.8 (25-34) pg MCHC 33.9 (32-36) g/dL RDW Std Deviation 43.2 (36.4-46.3) fL RDW Coeff of Tan 12.3 (11.5-14.5) % Plt Count 149 (130-400) K/uL MPV 11.4 H (7.4-10.4) fL Immature Gran % (Auto) 0.2 % Neut % (Auto) 67.6 % Lymph % (Auto) 22.8 % [facility] % (Auto) 7.4 % Eos % (Auto) 1.7 % Baso % (Auto) 0.3 % Neut # (Auto) 3.99 (1.4-6.5) K/uL Lymph # (Auto) 1.35 (1.2-3.4) K/uL [facility] # (Auto) 0.44 (0.11-0.59) K/uL Eos # (Auto) 0.10 (0-0.5) K/uL Baso # (Auto) 0.02 (0-0.2) K/uL Immature Gran # (Auto) 0.01 (0.00-0.02) K/uL PT (9.0-12.0) Seconds INR (0.9-1.1) APTT (21.0-31.0) Seconds PTT Ratio Sodium (136-145) mmol/L Potassium (3.5-5.1) mmol/L Chloride (98-107) mmol/L Carbon Dioxide (21-32) mmol/L Anion Gap (3-11) BUN (7-18) mg/dl Creatinine (0.6-1.2) mg/dl Est Cr Clr Drug Dosing ml/min Est GFR ( Amer) ml/min Est GFR (Non-Af Amer) ml/min BUN/Creatinine Ratio (10-20) Glucose (70-99) mg/dl Calcium (8.5-10.1) mg/dl Phosphorus (2.5-4.9) mg/dl Magnesium (1.8-2.4) mg/dl Total Bilirubin (0.2-1) mg/dl AST (15-37) U/L ALT (12-78) Alkaline Phosphatase (45-117) U/L Ammonia (11-32) umol/L Total Protein (6.4-8.2) gm/dl Albumin (3.4-5.0) gm/dl Globulin (2.5-4.0) gm/dl Albumin/Globulin Ratio (0.9-2) TSH (0.300-4.500) uIu/ml Free T4 (0.8-1.6) ng/dl HCG, Qual Negative (Negative) Urine Color Urine Appearance (Clear) Urine pH (4.5-7.5) Ur Specific [place] (1.000-1.030) Urine Protein (Negative) Urine Glucose (UA) (Negative) Urine Ketones (Negative) Urine Blood (Negative) Urine Nitrite (Negative) Urine Bilirubin (Negative) Urine Urobilinogen (Negative) Ur Leukocyte Esterase (Negative) Urine Opiates Screen (Neg) Ur Methadone, Qual (Neg) Urine Barbiturates (Neg) Ur Phencyclidine (PCP) (Neg) U Amphetamin/Meth Scrn (Neg) MDMA (Ecstasy) Screen (Neg) U Benzodiazepines Scrn (Neg) Ur Cocaine Metabolite (Neg) U Marijuana (THC) Screen (Neg) Ethyl Alcohol mg/dL < 3.0 (0-3) mg/dl SARS-CoV-2, RNA, NAAT (NEGATIVE) 03/06/21 03/06/21 03/06/21 Range/Units 10:58 11:10 11:10 WBC (4.8-10.8) K/uL RBC (4.2-5.4) M/uL Hgb (12.0-16.0) g/dL Hct (37-47) % MCV (80-100) fL MCH (25-34) pg MCHC (32-36) g/dL RDW Std Deviation (36.4-46.3) fL RDW Coeff of Tan (11.5-14.5) % Plt Count (130-400) K/uL MPV (7.4-10.4) fL Immature Gran % (Auto) % Neut % (Auto) % Lymph % (Auto) % [facility] % (Auto) % Eos % (Auto) % Baso % (Auto) % Neut # (Auto) (1.4-6.5) K/uL Lymph # (Auto) (1.2-3.4) K/uL [facility] # (Auto) (0.11-0.59) K/uL Eos # (Auto) (0-0.5) K/uL Baso # (Auto) (0-0.2) K/uL Immature Gran # (Auto) (0.00-0.02) K/uL PT (9.0-12.0) Seconds INR (0.9-1.1) APTT (21.0-31.0) Seconds PTT Ratio Sodium (136-145) mmol/L Potassium (3.5-5.1) mmol/L Chloride (98-107) mmol/L Carbon Dioxide (21-32) mmol/L Anion Gap (3-11) BUN (7-18) mg/dl Creatinine (0.6-1.2) mg/dl Est Cr Clr Drug Dosing ml/min Est GFR ( Amer) ml/min Est GFR (Non-Af Amer) ml/min BUN/Creatinine Ratio (10-20) Glucose (70-99) mg/dl Calcium (8.5-10.1) mg/dl Phosphorus Cancelled (2.5-4.9) mg/dl Magnesium Cancelled (1.8-2.4) mg/dl Total Bilirubin (0.2-1) mg/dl AST (15-37) U/L ALT (12-78) Alkaline Phosphatase (45-117) U/L Ammonia (11-32) umol/L Total Protein (6.4-8.2) gm/dl Albumin (3.4-5.0) gm/dl Globulin (2.5-4.0) gm/dl Albumin/Globulin Ratio (0.9-2) TSH (0.300-4.500) uIu/ml Free T4 (0.8-1.6) ng/dl HCG, Qual (Negative) Urine Color Dark Yellow Urine Appearance Clear (Clear) Urine pH 7.0 (4.5-7.5) Ur Specific [place] 1.016 (1.000-1.030) Urine Protein Negative (Negative) Urine Glucose (UA) Negative (Negative) Urine Ketones Trace H (Negative) Urine Blood Negative (Negative) Urine Nitrite Negative (Negative) Urine Bilirubin Negative (Negative) Urine Urobilinogen Negative (Negative) Ur Leukocyte Esterase Negative (Negative) Urine Opiates Screen Neg (Neg) Ur Methadone, Qual Neg (Neg) Urine Barbiturates Neg (Neg) Ur Phencyclidine (PCP) Neg (Neg) U Amphetamin/Meth Scrn Neg (Neg) MDMA (Ecstasy) Screen Neg (Neg) U Benzodiazepines Scrn Neg (Neg) Ur Cocaine Metabolite Neg (Neg) U Marijuana (THC) Screen Neg (Neg) Ethyl Alcohol mg/dL (0-3) mg/dl SARS-CoV-2, RNA, NAAT (NEGATIVE) 03/06/21 Range/Units 14:45 WBC (4.8-10.8) K/uL RBC (4.2-5.4) M/uL Hgb (12.0-16.0) g/dL Hct (37-47) % MCV (80-100) fL MCH (25-34) pg MCHC (32-36) g/dL RDW Std Deviation (36.4-46.3) fL RDW Coeff of Tan (11.5-14.5) % Plt Count (130-400) K/uL MPV (7.4-10.4) fL Immature Gran % (Auto) % Neut % (Auto) % Lymph % (Auto) % [facility] % (Auto) % Eos % (Auto) % Baso % (Auto) % Neut # (Auto) (1.4-6.5) K/uL Lymph # (Auto) (1.2-3.4) K/uL [facility] # (Auto) (0.11-0.59) K/uL Eos # (Auto) (0-0.5) K/uL Baso # (Auto) (0-0.2) K/uL Immature Gran # (Auto) (0.00-0.02) K/uL PT (9.0-12.0) Seconds INR (0.9-1.1) APTT (21.0-31.0) Seconds PTT Ratio Sodium (136-145) mmol/L Potassium (3.5-5.1) mmol/L Chloride (98-107) mmol/L Carbon Dioxide (21-32) mmol/L Anion Gap (3-11) BUN (7-18) mg/dl Creatinine (0.6-1.2) mg/dl Est Cr Clr Drug Dosing ml/min Est GFR ( Amer) ml/min Est GFR (Non-Af Amer) ml/min BUN/Creatinine Ratio (10-20) Glucose (70-99) mg/dl Calcium (8.5-10.1) mg/dl Phosphorus (2.5-4.9) mg/dl Magnesium (1.8-2.4) mg/dl Total Bilirubin (0.2-1) mg/dl AST (15-37) U/L ALT (12-78) Alkaline Phosphatase (45-117) U/L Ammonia (11-32) umol/L Total Protein (6.4-8.2) gm/dl Albumin (3.4-5.0) gm/dl Globulin (2.5-4.0) gm/dl Albumin/Globulin Ratio (0.9-2) TSH (0.300-4.500) uIu/ml Free T4 (0.8-1.6) ng/dl HCG, Qual (Negative) Urine Color Urine Appearance (Clear) Urine pH (4.5-7.5) Ur Specific [place] (1.000-1.030) Urine Protein (Negative) Urine Glucose (UA) (Negative) Urine Ketones (Negative) Urine Blood (Negative) Urine Nitrite (Negative) Urine Bilirubin (Negative) Urine Urobilinogen (Negative) Ur Leukocyte Esterase (Negative) Urine Opiates Screen (Neg) Ur Methadone, Qual (Neg) Urine Barbiturates (Neg) Ur Phencyclidine (PCP) (Neg) U Amphetamin/Meth Scrn (Neg) MDMA (Ecstasy) Screen (Neg) U Benzodiazepines Scrn (Neg) Ur Cocaine Metabolite (Neg) U Marijuana (THC) Screen (Neg) Ethyl Alcohol mg/dL (0-3) mg/dl SARS-CoV-2, RNA, NAAT NEGATIVE (NEGATIVE) Administered Medications Multivitamins 10 ml/ Thiamine HCl 100 mg/ Folic Acid 1 mg/Sodium Chloride 1,011.2 mls @ 500 mls/hr IV .Q2H2M ONE Stop: 03/06/21 18:13 Last Admin: 03/06/21 17:08 Dose: 500 mls/hr Documented by: [id number] Discontinued Medications Sodium Chloride (Nss 1000ml) 1,000 mls @ 999 mls/hr IV .Q1H1M ONE Stop: 03/06/21 15:21 Last Infusion: 03/06/21 15:36 Dose: 0 mls/hr Documented by: [id number] Admin: 03/06/21 14:33 Dose: 999 mls/hr Documented by: [id number] Ondansetron HCl (Ondansetron Inj 2 Mg/Ml 2 Ml Vial) Confirm Administered Dose 4 mg .ROUTE .STK-MED ONE Stop: 03/06/21 13:25 Last Admin: 03/06/21 13:34 Dose: 4 mg Documented by: [id number] Potassium Chloride (Potassium Chloride Crtab 20 Meq Tabcr) 40 meq PO NOW STA Stop: 03/06/21 16:38 Last Admin: 03/06/21 17:07 Dose: 40 meq Documented by: [id number] Imaging Data Radiologist's Impression: Brain MRI 03/06/21 10:45 MR brain wo con HISTORY: 40 years-old Female off balance, falling acute weakness COMPARISON: Head CT 07/20/2020 TECHNIQUE: Multiplanar multisequence MRI the brain was obtained without the use of IV contrast FINDINGS: Brine Tank Tender localizer images demonstrate no gross extracranial abnormality. There is no restricted diffusion to suggest acute or subacute infarct. Midline structures appear unremarkable. No acute intracranial hemorrhage, midline shift, abnormal extra-axial collection, hydrocephalus or intracranial mass. No significant T2/FLAIR signal abnormalities of the brain parenchyma. Cerebral venous sinuses and major arterial flow voids appear patent. The mastoid air cells and paranasal sinuses appear generally clear. Unremarkable soft tissues and orbits. IMPRESSION: Unremarkable MRI of the brain. ACT 112: Negative or not required by law. The above report was generated using voice recognition software. It may contain grammatical, syntax or spelling errors. Electronically signed by: Jorge L Rodriguez M.D. 03/06/2021 2:17 PM Chest X-Ray 03/06/21 10:45 XR chest 1V portable HISTORY: 40 years-old Female weakness acute weakness COMPARISON: CTA chest 07/12/2015 TECHNIQUE: Portable AP view of the chest FINDINGS: The cardiomediastinal and hilar silhouettes are within normal limits. There is no pneumothorax, pleural effusion, airspace consolidation or overt pulmonary edema. Bones of the chest appear grossly intact. IMPRESSION: No acute process. ACT 112: Negative or not required by law. The above report was generated using voice recognition software. It may contain grammatical, syntax or spelling errors. Electronically signed by: Jorge L Rodriguez M.D. 03/06/2021 11:21 AM Discharge Plan Visit Data Chief Complaint: Neuro Symptoms/Deficit Stated Complaint: NEURO ED Provider: Rocco Salazar Discharge Problem: Acute confusion, Alcohol withdrawal, Dehydration, Hyperammonemia Patient Disposition: Admitted As Inpatient Condition: Fair Forms Stand Alone Forms: [facility] [employer] Prescriptions Prescriptions: No Action levothyroxine 75 mcg tablet 75 mcg PO DAILY RF: 0 prednisone 10 mg tablet 10 mg PO UD RF: 0 propranolol 10 mg Tablet 10 mg PO BID RF: 0 lorazepam 0.5 mg tablet 0.5 mg PO Q6H RF: 0 ondansetron HCl [Zofran] 4 mg Tablet 4 mg PO Q6H PRN (Reason: Nausea) RF: 0 multivitamin Tablet 1 tab PO DAILY Qty: 30 RF: 0 Referrals Referrals: Greer Capone PA-C [Primary Care Provider] -
--- NOTE | 2021-03-06 11:22 | XRay Report ---
XR chest 1V portable HISTORY: 40 years-old Female weakness acute weakness COMPARISON: CTA chest 07/12/2015 TECHNIQUE: Portable AP view of the chest FINDINGS: The cardiomediastinal and hilar silhouettes are within normal limits. There is no pneumothorax, pleur al effusion, airspace consolidation or overt pulmonary edema. Bones of the chest appear grossly intac t. IMPRESSION: No acute process. ACT 112: Negative or not required by law. The above report was generated using voice recognition software. It may contain grammatical, syntax o r spelling errors. Electronically signed by: Jorge L Rodriguez M.D. 03/06/2021 11:21 AM
[2021-03-06 11:24] LABS: Partial Thromboplastin Ratio 0.9; Partial Thromboplastin Time 24.8 Seconds (21.0-31.0); Prothrombin Time 9.8 Seconds (9.0-12.0)
[2021-03-06 11:26] LABS: Albumin Level 4.4 gm/dl (3.4-5.0); BUN Creatinine Ratio 6.5 (10-20); Calcium 9.8 mg/dl (8.5-10.1); Creatinine Clr Calc Pharmacy 81.3 ml/min; Est GFR (African American) 126.5 ml/min; Est GFR (Non-African American) 109.1 ml/min; Potassium 3.4 mmol/L (3.5-5.1)
[2021-03-06 11:27] LABS: Appearance Urine Clear (Clear); Bilirubin Urine Negative (Negative); Blood Urine Negative (Negative); Color Urine Dark Yellow; Glucose Urine UA Negative (Negative); Ketones Urine Trace (Negative); Leukocyte Esterase Urine Negative (Negative); Nitrite Urine Negative (Negative); Protein Urine Negative (Negative); Specific Gravity Urine 1.016 (1.000-1.030); Urobilinogen Urine Negative (Negative)
[2021-03-06 11:31] LABS: Pregnancy Test, Serum Negative (Negative)
[2021-03-06 11:37] LABS: Albumin Globulin Ratio 0.9 (0.9-2); Bilirubin,Total 1.4 mg/dl (0.2-1); Globulin 4.7 gm/dl (2.5-4.0); Thyroid Stimulating Hormone 6.68 uIu/ml (0.300-4.500); Total Protein 9.1 gm/dl (6.4-8.2)
[2021-03-06 11:49] LABS: T4 Free Thyroxine 0.87 ng/dl (0.8-1.6)
[2021-03-06 13:03] LABS: Basophils # (auto) 0.02 K/uL (0-0.2); Basophils % (auto) 0.3 %; Eosinophils % (auto) 1.7 %; Hemoglobin 13.9 g/dL (12.0-16.0); Immature Granulocytes # (auto) 0.01 K/uL (0.00-0.02); Immature Granulocytes % (auto) 0.2 %; Lymphocytes # (auto) 1.35 K/uL (1.2-3.4); Lymphocytes % (auto) 22.8 %; Mean Corpuscular Hemoglobin 32.8 pg (25-34); Mean Corpuscular Hgb Conc 33.9 g/dL (32-36); Mean Corpuscular Volume 96.7 fL (80-100); Mean Platelet Volume 11.4 fL (7.4-10.4); Monocytes # (auto) 0.44 K/uL (0.11-0.59); Monocytes % (auto) 7.4 %; Neutrophils # (auto) 3.99 K/uL (1.4-6.5); Neutrophils % (auto) 67.6 %; Platelet Count 149 K/uL (130-400); RDW Coefficient of Variation 12.3 % (11.5-14.5); RDW Standard Deviation 43.2 fL (36.4-46.3); Red Blood Count 4.24 M/uL (4.2-5.4); White Blood Count 5.91 K/uL (4.8-10.8)
[2021-03-06 13:23] LABS: Amphetamines+Metham, Urine Neg (Neg); Barbiturates, Urine Neg (Neg); Benzodiazepine, Urine Neg (Neg); Cocaine, Urine Neg (Neg); MDMA (Ecstacy), Urine Neg (Neg); Methadone, Urine Neg (Neg); Opiate, Urine Neg (Neg); Phencyclidine, Urine Neg (Neg)
[2021-03-06] MEDS ORDERED: ONDANSETRON INJ 2 MG/ML 2 ML VIAL ONE (13:24)
--- NOTE | 2021-03-06 14:18 | Magnetic Resonance Report ---
MR brain wo con HISTORY: 40 years-old Female off balance, falling acute weakness COMPARISON: Head CT 07/20/2020 TECHNIQUE: Multiplanar multisequence MRI the brain was obtained without the use of IV contrast FINDINGS: Oven Heater localizer images demonstrate no gross extracranial abnormality. There is no restricted diffusio n to suggest acute or subacute infarct. Midline structures appear unremarkable. No acute intracranial hemorrhage, midline shift, abnormal extra-axial collection, hydrocephalus or intracranial mass. No s ignificant T2/FLAIR signal abnormalities of the brain parenchyma. Cerebral venous sinuses and major a rterial flow voids appear patent. The mastoid air cells and paranasal sinuses appear generally clear. Unremarkable soft tissues and orbits. IMPRESSION: Unremarkable MRI of the brain. ACT 112: Negative or not required by law. The above report was generated using voice recognition software. It may contain grammatical, syntax o r spelling errors. Electronically signed by: Jorge L Rodriguez M.D. 03/06/2021 2:17 PM
[2021-03-06] MEDS ORDERED: SODIUM CHLORIDE 0.9% 1000ML 1,000 ML IV ONE (14:21)
[2021-03-06] MEDS ORDERED: ATIVAN IV ALCOHOL WITHDRAWL IV PRN (16:12)
[2021-03-06] MEDS ORDERED: LORazepam 1 MG TAB PO PRN (16:12)
[2021-03-06] MEDS ORDERED: MULTI-VITAMIN INFUSION 10 ML, THIAMINE HCL 100 MG, FOLIC ACID 1 MG in SODIUM CHLORIDE 0... IV ONE (16:12)
[2021-03-06] MEDS ORDERED: GABAPENTIN 800MG ALCOHOL WITHDRAWAL LOAD PO STA (16:12)
[2021-03-06] MEDS ORDERED: LORazepam 1 MG/2 ML VIAL IV PRN (16:12)
[2021-03-06] MEDS ORDERED: GABAPENTIN 400 MG CAP PO ONE (16:12)
[2021-03-06] MEDS ORDERED: THIAMINE HCL 200 MG in SODIUM CHLORIDE 0.9% 50 ML IV STA (16:19)
[2021-03-06] MEDS ORDERED: FOLIC ACID 1 MG in SYRINGE 9.8 ML IV STA (16:19)
[2021-03-06] MEDS ORDERED: POTASSIUM CHLORIDE CRTAB 20 MEQ TABCR PO STA (16:37)
--- NOTE | 2021-03-06 16:39 | History & Physical Report ---
Date of Service March 06, 2021 Assessment & Plan (1) Alcohol withdrawal: (2) Elevated AST (SGOT): Plan: #. Impending alcohol withdrawal Alcohol withdrawal detoxification in July 2020, has been having issues with alcohol since last 2 years, has been drinking since age 20 Last drink 5 days ago, lately drinking 1-2 bottles of wine. Urine drug screen including alcohol level negative. Patient reports decreased solute intake in the last month, has not eaten anything since last evening. Clinically, fine tremors noted, vitals fairly stable at bedside exam. Banana bag, start IV thiamine and folic acid followed by daily IV thiamine and folic acid for few days then transition to oral IV fluid, diet, AWSS protocol #. Mild hyponatremia Admitting sodium 135, likely secondary to poor oral intake Encourage protein intake in diet, will continue to monitor #. Electrolytes Potassium 3.4 at admission, monitor and replete as appropriate. Get magnesium and phosphorus level. #. Transaminitis Admitting bilirubin mildly elevated with AST and ALT elevation, ALP normal Outpatient concern for alcoholic hepatitis and was started on prednisone, patient did not get a chance to take it. Consult GI, daily liver panel, hepatic panel, US liver #. History of hypothyroidism Admitting TSH mildly elevated at 6.6 with normal free T4 Continue with home dose of levothyroxine Full code Lovenox Disposition: Expect discharge in next 2 to 3 days. History of Present Illness Chief Complaint: anxiety, tremor, alc withdrawal Primary Care Provider: Greer Capone PA-C 40-year-old lady with PMH of alcohol abuse, alcohol withdrawal needing hospital admission, anxiety on propranolol, hypothyroidism on levothyroxine, elevated liver enzymes who reports drinking alcohol since age 20 and was admitted in July 2020 for alcohol withdrawal detoxification, was sober until mid December 2020 when she started drinking casually with friends which got aggravated to drinking alone 1-2 bottles of wine as of lately, last drink 5 days ago per patient. Per patient she has been having issues with alcohol since last 2 years. Patient has a counselor as outpatient. 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 She reports she was feeling better after stopping drinking 5 days ago CREDIT [employer]ISK MODEL[employer] until last night when she started having restlessness and tremors along with the above symptoms. Patient denies smoking tobacco or using any illegal drugs or marijuana. No self history of heart disease/cancer/blood clot. Family history of prostate cancer in father and grandfather, breast cancer in 2 aunts, B-cell lymphoma in grandmother from father's side. Patient boosted against Covid. Denies fever/headache/cough/pain burning with passing urine. Reports having loose bowel movement since last couple of days until today when she had normal bowel movement. Other ROS negative except as mentioned above. Full code. Allergies Allergy/AdvReac Type Severity Reaction Status Date / Time No Known Allergies Allergy Verified 03/06/21 11:56 Home Medications Medication Instructions Recorded Confirmed Type levothyroxine 75 mcg tablet 75 mcg PO DAILY 11/12/19 03/06/21 History ondansetron HCl 4 mg tablet 4 mg PO Q6H PRN 07/20/20 03/06/21 History (Zofran) multivitamin 1 tab PO DAILY #30 tab 07/23/20 03/06/21 Rx lorazepam 0.5 mg tablet 0.5 mg PO Q6H 03/06/21 03/06/21 History prednisone 10 mg tablet 10 mg PO UD 03/06/21 03/06/21 History propranolol 10 mg tablet 10 mg PO BID 03/06/21 03/06/21 History Past Med/Surg History Medical History Asthma Hypothyroidism Surgical History History of oral surgery tooth extraction Family History Aunt Breast cancer Paternal Grandmother (Paternal) Lymphoma Other Dyslipidemia Heart disease Hypertension Ovarian cancer Denies family history of Colorectal cancer Social History Smoking Status: Never smoker Hx Alcohol Use: Yes Alcohol type: wine Alcohol type Comment: 1 - 1.5 bottles/day Hx Substance Use: No Preferred Language: Icelandic Communication Ability: Effective International Trade Compliance Manager Required: No Beliefs That Will Affect Care: None Current Living Situation: Spouse and Family Feels Safe at Home: Yes Assistive Devices: None Physical Exam Physical Exam: GENERAL: Alert and oriented x3. NAD, on RA. HEENT: No pallor, no icterus. Pupils equal, round and reactive to light. Oral mucosa moist. NECK: No JVD, no neck masses. HEART: S1 and S2 heard. Regular rate and rhythm. No murmur, no gallop. RESPIRATORY SYSTEM: Normal AP diameter. No accessory muscle use. No wheezing, no crackles. ABDOMEN: Soft, bowel sounds present, nontender, no distention. CENTRAL NERVOUS SYSTEM: No facial droop. Speech is clear. Obeys simple commands. Moves extremities. EXTREMITIES: No edema, no erythema seen. Fine tremors in the hand noted. Results & Data Results & Data ([facility]) Vital Signs (Past 12 Hours) Vital Signs Temp Pulse Pulse Resp BP BP Pulse Ox 03/06/21 15:22 81 19 129/95 98 03/06/21 15:00 99 H 28 H 127/85 03/06/21 14:36 74 76 14 155/97 H 155/97 H 98 03/06/21 13:00 86 22 134/87 98 03/06/21 12:38 98 H 22 141/115 H 03/06/21 11:57 128/88 03/06/21 11:56 90 22 03/06/21 11:30 85 17 03/06/21 11:10 82 20 03/06/21 10:10 36.6 C 98 H 18 141/97 H 99 (1) Alcohol withdrawal Complication of substance-induced condition: uncomplicated Qualified Code(s): F10.230 - Alcohol dependence with withdrawal, uncomplicated
[2021-03-06 16:57] LABS: Magnesium 2.1 mg/dl (1.8-2.4); Phosphorus 3.9 mg/dl (2.5-4.9)
--- NOTE | 2021-03-06 18:28 | Ultrasound Report ---
US liver HISTORY: 40 years-old Female Hepatitis acute right upper quadrant abdominal pain COMPARISON: CT abdomen and pelvis 07/20/2020 TECHNIQUE: Multiple real-time sonographic images of the abdominal right upper quadrant were obtained assessing grayscale appearance and color flow FINDINGS: The visualized pancreas is unremarkable. There is increased echogenicity of the hepatic parenchyma. N o hepatic mass or marginal nodularity identified. Contracted gallbladder without cholelithiasis or pe richolecystic fluid. The gallbladder wall measures 3 mm. Negative sonographic Tracy's sign. The comm on bile duct is normal measuring 2 mm. Unremarkable right kidney without hydronephrosis. IMPRESSION: 1. Contracted gallbladder without cholelithiasis or sonographic evidence of acute cholecystitis. 2. Hepatic steatosis. 3. No biliary ductal dilation. ACT 112: Negative or not required by law. The above report was generated using voice recognition software. It may contain grammatical, syntax o r spelling errors. Electronically signed by: Jorge L Rodriguez M.D. 03/06/2021 6:27 PM
[2021-03-06] MEDS: THIAMINE HCL 100 MG in SYRINGE 9 ML IV SCH ×2 (19:18→21:05)
[2021-03-06] MEDS: FOLIC ACID 1 MG in SYRINGE 9.8 ML IV SCH ×2 (19:18→21:04)
[2021-03-06] MEDS: LORazepam 3 MG/6 ML VIAL IV PRN ×2 (20:25→22:05)
[2021-03-06] MEDS ORDERED: OLANZapine 10 MG/2.1 ML SDV IM STA ×2 (21:31→21:42)
[2021-03-06] MEDS ORDERED: OLANZapine 10 MG/2.1 ML SDV IM ONE (21:33)
[2021-03-06] MEDS ORDERED: chlordiazePOXIDE ALCOHOL WITHDRAWL 25MG PO STA (21:38)
[2021-03-06] MEDS ORDERED: LORazepam 2 MG/4 ML VIAL IV STA (21:57)
[2021-03-06] MEDS ORDERED: chlordiazePOXIDE HCl 25 MG CAP PO SCH (22:00)
[2021-03-06] MEDS ORDERED: GABAPENTIN 400 MG CAP PO SCH (22:15)
--- NOTE | 2021-03-06 23:02 | Communication Note ---
Date of Service: March 06, 2021 Patient transferred to ICU for uncontrolled agitation despite multiple doses of IV Ativan. May benefit from Precedex infusion.
[2021-03-06] MEDS ORDERED: STAT IV Infusion **Titration per Protocol STA (23:15)
[2021-03-06] MEDS ORDERED: ACETAMINOPHEN 325 MG TAB PO PRN (23:44)
[2021-03-06] MEDS ORDERED: ICU PROTOCOL FOR HYPERGLYCEMIA PRN (23:44)
--- NOTE | 2021-03-06 23:51 | Critical Care Consultation ---
Date of Consultation March 06, 2021 Assessment & Plan (1) Alcohol withdrawal: Impression: 40-year-old female with alcohol delirium tremens transferred to the ICU after requiring high-dose Ativan and Zyprexa after she became combative and was placed in four-point restraints. Neuro - Alcohol withdrawalpatient received 2.5 IM of Zyprexa and was reported to receive 11 mg IV Ativan total by nursing staff after having refractory DTs and becoming combative. -On arrival to ICU patient is currently somnolent we will hold on Precedex drip for now -Toxicology negative on admission, EtOH negative -Continue with CIWA protocol with IV Ativan -Received banana bag x1, continue thiamine, folate, multivitamin -Elevated ammonia may be contributing to encephalopathy, will start on lactulose Cardiac - No history of cardiac disease. Currently normal sinus rhythm on monitor and hemodynamically stable. Continuous monitoring on telemetry Respiratory - No history of pulmonary disease. Currently maintaining oxygen saturation on room air and protecting airway. Continuous monitoring pulse ox GI - Transaminitispatient with mild elevation of LFTs and elevated ammonia -Hepatitis panel pending -Elevated ammonia, will start on lactulose -GI consulted -Liver ultrasound with hepatic steatosis, no evidence of acute cholecystitis or biliary ductal dilation. -Trend LFTs for now RENAL/LYTES - Creatinine stable, no severe electrolyte abnormalities. Replete electrolytes as indicated monitor routine BMPs - Strict I's and O's ENDO - No history of diabetes. ICU hyperglycemic protocol Hypothyroidcontinue Synthroid HEME - H&H stable, monitor routine CBC ID - No indication for infectious process at this time. Monitor fever curve LINES/IV ACCESS - Peripheral IVs DVT PROPHYLAXIS - SCDs, Lovenox Thank you for allowing us to participate in the care of this patient. Please refer to my attending physician's documentation for any further recommendations. (2) Transaminitis: (3) Hyperammonemia: (4) Anxiety: (5) Hypothyroidism: (6) DVT prophylaxis: History of Present Illness Attending Physician: Kareem Smith MD History of Present Illness Patient is a 40-year-old female with past medical history of anxiety, hypothyroid, alcohol abuse. She was admitted to the hospital earlier this evening after presenting to the ED with confusion, vertigo, and had an episode where she tripped and fell at home onto her knees. Patient had been having hallucinations as well. Patient reported that she has stopped drinking 5 days ago, and was previously drinking 1-2 bottles of wine per day since December. She was admitted to the hospital with alcohol withdrawal in July 2020 and underwent detox and remained sober up until December. She was admitted to medical floor where she was being treated with CIWA protocol, however despite multiple IV Ativan administered and IM Zyprexa, she began develop refractory DTs and ultimately became restrained with four-point restraints. At this point, cash checker team was consulted and patient was transferred to ICU for Precedex drip. On arrival to the ICU patient is somnolent but arousable to minor stimulation but nonverbal. She is no longer combative and violent restraints have been removed. She is currently protecting her airway and will monitor closely in the ICU for now. We will currently hold on Precedex drip but should the patient decompensate she may require additional medication. We will continue with CIWA protocol with IV of Ativan. Allergies Allergy/AdvReac Type Severity Reaction Status Date / Time No Known Allergies Allergy Verified 03/06/21 11:56 Home Medications Medication Instructions Recorded Confirmed Type levothyroxine 75 mcg tablet 75 mcg PO DAILY 11/12/19 03/06/21 History ondansetron HCl 4 mg tablet 4 mg PO Q6H PRN 07/20/20 03/06/21 History (Zofran) multivitamin 1 tab PO DAILY #30 tab 07/23/20 03/06/21 Rx lorazepam 0.5 mg tablet 0.5 mg PO Q6H 03/06/21 03/06/21 History prednisone 10 mg tablet 10 mg PO UD 03/06/21 03/06/21 History propranolol 10 mg tablet 10 mg PO BID 03/06/21 03/06/21 History Patient History Medical History Alcohol withdrawal Asthma Hypothyroidism Surgical History History of oral surgery tooth extraction Family History Aunt Breast cancer Paternal Grandmother (Paternal) Lymphoma Other Dyslipidemia Heart disease Hypertension Ovarian cancer Denies family history of Colorectal cancer Social History Smoking Status: Never smoker Hx Alcohol Use: No Hx Substance Use: No Preferred Language: Tajik Communication Ability: Effective Tool Mechanic Required: No Beliefs That Will Affect Care: None Current Living Situation: Family Other Information That Helps Us Care for You: No Feels Safe at Home: Yes Safety Concerns: Feels Safe At This Time Assistive Devices: Glasses Review of Systems Review of Systems: Unobtainable due to cognitive status Physical Exam Constitutional: + thin, + altered mental status and + lethargic Eyes: + pinpoint pupils ENMT: external ear and nose normal, oropharynx normal Neck: trachea midline, no thyromegaly Respiratory: normal respiratory effort, lungs clear to auscultation Cardiovascular: RRR, no murmur, no edema Heart Sounds: normal S1 and normal S2 Vessels: no JVD Extremities: no edema Gastrointestinal (Abdomen): normal bowel sounds, soft, nontender, no hepatosplenomegaly Skin: no rashes, warm and dry Neurologic: Exam limited due to neurological status secondary to sedation Psychiatric: Somnolent Results & Data Results & Data ([facility]) Vital Signs (Past 12 Hours) Vital Signs Temp Pulse Pulse Resp BP BP Pulse Ox 03/06/21 23:03 36.6 C 87 16 125/80 94 03/06/21 19:20 37.0 C 87 20 136/90 99 03/06/21 19:10 37.0 C 87 20 136/90 99 03/06/21 18:00 84 18 130/84 03/06/21 17:01 146/108 H 03/06/21 17:00 94 H 91 H 26 H 146/108 H 100 03/06/21 16:30 74 17 127/95 99 03/06/21 16:01 157/94 H 03/06/21 16:00 87 19 99 03/06/21 15:30 78 16 126/95 03/06/21 15:22 81 19 129/95 98 03/06/21 15:20 89 17 129/95 03/06/21 15:00 99 H 28 H 127/85 03/06/21 14:36 74 76 14 155/97 H 155/97 H 98 03/06/21 13:00 86 22 134/87 98 03/06/21 12:38 98 H 22 141/115 H 03/06/21 11:57 128/88 03/06/21 11:56 90 22 Coding Level of Care Code 78814 Inpt Consult Level 3 Diagnoses Transaminitis R74.01 Alcohol withdrawal F10.230 Complication of substance-induced condition: uncomplicated Hyperammonemia E72.20 Anxiety F41.9 Hypothyroidism E03.9 DVT prophylaxis Z29.9 (1) Alcohol withdrawal Complication of substance-induced condition: uncomplicated Qualified Code(s): F10.230 - Alcohol dependence with withdrawal, uncomplicated
[2021-03-07] MEDS: LORazepam 3 MG/6 ML VIAL IV PRN ×3 (04:09→05:36)
[2021-03-07 05:00] LABS: Basophils # (auto) 0.02 K/uL (0-0.2); Basophils % (auto) 0.4 %; Eosinophils # (auto) 0.15 K/uL (0-0.5); Eosinophils % (auto) 2.6 %; Hematocrit (blood only) 36.8 % (37-47); Hemoglobin 12.1 g/dL (12.0-16.0); Immature Granulocytes # (auto) 0.01 K/uL (0.00-0.02); Immature Granulocytes % (auto) 0.2 %; Lymphocytes # (auto) 1.92 K/uL (1.2-3.4); Lymphocytes % (auto) 33.7 %; Mean Corpuscular Hemoglobin 31.9 pg (25-34); Mean Corpuscular Hgb Conc 32.9 g/dL (32-36); Mean Corpuscular Volume 97.1 fL (80-100); Mean Platelet Volume 10.8 fL (7.4-10.4); Monocytes # (auto) 0.57 K/uL (0.11-0.59); Neutrophils # (auto) 3.03 K/uL (1.4-6.5); Neutrophils % (auto) 53.1 %; Platelet Count 125 K/uL (130-400); RDW Coefficient of Variation 12.5 % (11.5-14.5); RDW Standard Deviation 43.8 fL (36.4-46.3); Red Blood Count 3.79 M/uL (4.2-5.4)
[2021-03-07 05:24] LABS: Folate (Folic Acid) > 20.00 ng/ml (>5.38); Vitamin B12 792 pg/ml (193-986)
[2021-03-07 05:30] LABS: Albumin Level 3.5 gm/dl (3.4-5.0); BUN Creatinine Ratio 6.2 (10-20); Calcium 9.2 mg/dl (8.5-10.1); Creatinine Clr Calc Pharmacy 98.1 ml/min; Est GFR (African American) 134.6 ml/min; Est GFR (Non-African American) 116.1 ml/min; Potassium 3.6 mmol/L (3.5-5.1)
[2021-03-07 05:39] LABS: Bilirubin,Total 1.2 mg/dl (0.2-1); Globulin 3.6 gm/dl (2.5-4.0); Total Protein 7.1 gm/dl (6.4-8.2)
[2021-03-07] MEDS: DEXMEDETOMIDINE HCL 200 MCG in SODIUM CHLORIDE 0.9% 48 ML IV SCH ×2 (05:51→14:10)
[2021-03-07] MEDS: LEVOTHYROXINE SODIUM 75 MCG TABLET PO SCH (06:20)
[2021-03-07] MEDS ORDERED: LACTULOSE SYRUP 20 GM/30 ML UDC PO SCH (09:00)
--- NOTE | 2021-03-07 09:03 | Gastrointestinal Consultation ---
Date of Consultation March 07, 2021 Assessment & Plan (1) Alcohol withdrawal: (2) Hyperammonemia: (3) Fatty liver: (4) Elevated LFTs: 40 yo female with ETOH withdrawal. Mildly elevated LFTs, ammonia elev as well. All related to ETOH. Improving. - ETOH withdrawal protocol in place. - Follow LFTs daily. History of Present Illness Reason for Consultation: ETOH elevated LFT Attending Physician: Kareem Smith MD History of Present Illness 40 yo female with long standing history of ETOH abuse admitted 5 days post stopping ETOH with agitation, anxiety, hallucination. Started on ETOH withdrawal protocol. Being followed by critical care. We are asked to see her for elevated LFTs. Worsening DTs and comabtive overnight requiring restraints. Now in the ICU. Mild elevation in LFts with mild improvement today. Allergies Allergy/AdvReac Type Severity Reaction Status Date / Time No Known Allergies Allergy Verified 03/06/21 11:56 Home Medications Medication Instructions Recorded Confirmed Type levothyroxine 75 mcg tablet 75 mcg PO DAILY 11/12/19 03/06/21 History ondansetron HCl 4 mg tablet 4 mg PO Q6H PRN 07/20/20 03/06/21 History (Zofran) multivitamin 1 tab PO DAILY #30 tab 07/23/20 03/06/21 Rx lorazepam 0.5 mg tablet 0.5 mg PO Q6H 03/06/21 03/06/21 History prednisone 10 mg tablet 10 mg PO UD 03/06/21 03/06/21 History propranolol 10 mg tablet 10 mg PO BID 03/06/21 03/06/21 History Patient History Medical History Alcohol withdrawal Asthma Hypothyroidism Surgical History History of oral surgery tooth extraction Family History Aunt Breast cancer Paternal Grandmother (Paternal) Lymphoma Other Dyslipidemia Heart disease Hypertension Ovarian cancer Denies family history of Colorectal cancer Social History Smoking Status: Never smoker Hx Alcohol Use: No Hx Substance Use: No Preferred Language: [place] Communication Ability: Effective Compliance Nurse Required: No Beliefs That Will Affect Care: None Current Living Situation: Family Other Information That Helps Us Care for You: No Feels Safe at Home: Yes Safety Concerns: Feels Safe At This Time Assistive Devices: Glasses Review of Systems Review of Systems: Unobtainable due to cognitive status Results & Data ([facility]) Vital Signs (Past 12 Hours) Vital Signs Temp Pulse Pulse Resp BP BP Pulse Ox 03/07/21 06:30 72 19 119/88 03/07/21 06:00 97 H 28 H 130/101 H 98 03/07/21 05:45 115 H 20 135/97 97 03/07/21 05:31 140/116 H 03/07/21 05:15 131 H 3 L 143/112 H 95 03/07/21 05:00 84 22 136/98 81 L 03/07/21 04:46 93 H 21 136/101 H 95 03/07/21 04:30 106 H 22 126/101 H 91 03/07/21 04:00 135 H 20 139/105 H 81 L 03/07/21 03:45 91 H 15 116/95 96 03/07/21 03:30 86 16 121/89 97 03/07/21 03:15 86 16 122/95 97 03/07/21 03:00 84 19 114/85 96 03/07/21 02:45 90 18 120/84 96 03/07/21 02:30 82 15 112/85 96 03/07/21 02:15 82 15 113/86 96 03/07/21 02:00 81 14 119/91 96 03/07/21 01:45 81 16 135/99 97 03/07/21 01:30 83 21 118/91 95 03/07/21 01:15 79 17 123/88 95 03/07/21 01:00 80 16 117/86 96 03/07/21 00:45 79 17 115/84 95 03/07/21 00:30 85 21 115/83 95 03/07/21 00:11 36.1 C L 03/07/21 00:00 82 19 104/76 94 03/06/21 23:44 82 19 110/80 94 03/06/21 23:40 84 03/06/21 23:03 36.6 C 87 16 125/80 94 (1) Alcohol withdrawal Complication of substance-induced condition: uncomplicated Qualified Code(s): F10.230 - Alcohol dependence with withdrawal, uncomplicated
--- NOTE | 2021-03-07 09:41 | Critical Care Progress Note ---
Date of Service March 07, 2021 Assessment & Plan (1) Alcohol withdrawal: Plan: Impression: 40-year-old female with alcohol delirium tremens transferred to the ICU after requiring high-dose Ativan and Zyprexa after she became combative and was placed in four-point restraints. Neuro - Alcohol withdrawaldelirium tremens -Continue Precedex -Consider transition to phenobarb if recurrent combativeness -Continue with CIWA protocol with IV Ativan -Received banana bag x1, continue thiamine, folate, multivitamin Hyperammonemia -Return to baseline discontinue lactulose Cardiac - No history of cardiac disease. Currently normal sinus rhythm on monitor and hemodynamically stable. Continuous monitoring on telemetry Respiratory - No history of pulmonary disease. Currently maintaining oxygen saturation on room air and protecting airway. Continuous monitoring pulse ox -Add end-tidal CO2 monitoring GI - Transaminitispatient with mild elevation of LFTs and elevated ammonia -GI consult reviewed -Liver ultrasound with hepatic steatosis, no evidence of acute cholecystitis or biliary ductal dilation. -Trend LFTs for now RENAL/LYTES - Creatinine stable, no severe electrolyte abnormalities. Replete electrolytes as indicated monitor routine BMPs - Strict I's and O's ENDO - No history of diabetes. ICU hyperglycemic protocol Hypothyroidcontinue Synthroid HEME - H&H stable, monitor routine CBC ID - No indication for infectious process at this time. Monitor fever curve Endo: Hypothyroidism -Continue Synthroid LINES/IV ACCESS - Peripheral IVs DVT PROPHYLAXIS - SCDs, Lovenox (2) Transaminitis: (3) Hyperammonemia: (4) Anxiety: (5) Hypothyroidism: (6) DVT prophylaxis: Admission and Anticipated Discharge Date Admission Date: March 06, 2021 Supervising Physician Co-Signing Physician Notes Patient critically ill due to active delirium tremens I have personally spent 40 minutes of critical care time in the direct management of this patient. This is a life/limb threatening event. This includes time spent evaluating patient, direct bedside care, chart review, placing orders, interpretation of diagnostic studies, discussion with consultants, patient, and/or family members regarding treatment decisions, as well as other required patient management activities. This time is exclusive of all separately billable procedures, and teaching time and separate from and in addition to any other critical care service time. Subjective Reviewed overnight events Review of Systems Review of Systems: Unable to obtain secondary to somnolence Physical Exam Physical Exam: General: Sleeping. nontoxic. Skin: Warm, dry, Head: Atraumatic Ears, nose, mouth and throat: airway patent Cardiovascular: Normal peripheral perfusion Respiratory: no respiratory distress Gastrointestinal: Non distended Musculoskeletal: No deformity Results & Data Results & Data ([facility]) Vital Signs (Past 12 Hours) Vital Signs Temp Pulse Pulse Resp BP BP Pulse Ox 03/07/21 06:30 72 19 119/88 03/07/21 06:00 97 H 28 H 130/101 H 98 03/07/21 05:45 115 H 20 135/97 97 03/07/21 05:31 140/116 H 03/07/21 05:15 131 H 3 L 143/112 H 95 03/07/21 05:00 84 22 136/98 81 L 03/07/21 04:46 93 H 21 136/101 H 95 03/07/21 04:30 106 H 22 126/101 H 91 03/07/21 04:00 135 H 20 139/105 H 81 L 03/07/21 03:45 91 H 15 116/95 96 03/07/21 03:30 86 16 121/89 97 03/07/21 03:15 86 16 122/95 97 03/07/21 03:00 84 19 114/85 96 03/07/21 02:45 90 18 120/84 96 03/07/21 02:30 82 15 112/85 96 03/07/21 02:15 82 15 113/86 96 03/07/21 02:00 81 14 119/91 96 03/07/21 01:45 81 16 135/99 97 03/07/21 01:30 83 21 118/91 95 03/07/21 01:15 79 17 123/88 95 03/07/21 01:00 80 16 117/86 96 03/07/21 00:45 79 17 115/84 95 03/07/21 00:30 85 21 115/83 95 03/07/21 00:11 36.1 C L 03/07/21 00:00 82 19 104/76 94 03/06/21 23:44 82 19 110/80 94 03/06/21 23:40 84 03/06/21 23:03 36.6 C 87 16 125/80 94 Critical Care Results & Data Vital Signs (Past 12 Hours) Vital Signs Temp Pulse Pulse Resp BP BP Pulse Ox 03/07/21 06:30 72 19 119/88 03/07/21 06:00 97 H 28 H 130/101 H 98 03/07/21 05:45 115 H 20 135/97 97 03/07/21 05:31 140/116 H 03/07/21 05:15 131 H 3 L 143/112 H 95 03/07/21 05:00 84 22 136/98 81 L 03/07/21 04:46 93 H 21 136/101 H 95 03/07/21 04:30 106 H 22 126/101 H 91 03/07/21 04:00 135 H 20 139/105 H 81 L 03/07/21 03:45 91 H 15 116/95 96 03/07/21 03:30 86 16 121/89 97 03/07/21 03:15 86 16 122/95 97 03/07/21 03:00 84 19 114/85 96 03/07/21 02:45 90 18 120/84 96 03/07/21 02:30 82 15 112/85 96 03/07/21 02:15 82 15 113/86 96 03/07/21 02:00 81 14 119/91 96 03/07/21 01:45 81 16 135/99 97 03/07/21 01:30 83 21 118/91 95 03/07/21 01:15 79 17 123/88 95 03/07/21 01:00 80 16 117/86 96 03/07/21 00:45 79 17 115/84 95 03/07/21 00:30 85 21 115/83 95 03/07/21 00:11 36.1 C L 03/07/21 00:00 82 19 104/76 94 03/06/21 23:44 82 19 110/80 94 03/06/21 23:40 84 03/06/21 23:03 36.6 C 87 16 125/80 94 Lab & Micro Results (Past 24 Hours) RBC 3.79 M/uL (4.2-5.4) L 03/07/21 WBC 5.70 K/uL (4.8-10.8) 03/07/21 Hgb 12.1 g/dL (12.0-16.0) 03/07/21 Hct 36.8 % (37-47) L 03/07/21 MCV 97.1 fL (80-100) 03/07/21 MCH 31.9 pg (25-34) 03/07/21 MCHC 32.9 g/dL (32-36) 03/07/21 RDW Standard Deviation 43.8 fL (36.4-46.3) 03/07/21 RDW Coefficient of Variation 12.5 % (11.5-14.5) 03/07/21 Plt Count 125 K/uL (130-400) L 03/07/21 MPV 10.8 fL (7.4-10.4) H 03/07/21 Neutrophils (%) (Auto) 53.1 % 03/07/21 Lymphocytes (%) (Auto) 33.7 % 03/07/21 Monocytes # (Auto) 0.57 K/uL (0.11-0.59) 03/07/21 Eosinophils # (Auto) 0.15 K/uL (0-0.5) 03/07/21 Immature Granulocyte % (Auto) 0.2 % 03/07/21 Neutrophils # (Auto) 3.03 K/uL (1.4-6.5) 03/07/21 Lymphocytes # (Auto) 1.92 K/uL (1.2-3.4) 03/07/21 Monocytes # (Auto) 0.57 K/uL (0.11-0.59) 03/07/21 Eosinophils # (Auto) 0.15 K/uL (0-0.5) 03/07/21 Basophils # (Auto) 0.02 K/uL (0-0.2) 03/07/21 Immature Granulocyte # (Auto) 0.01 K/uL (0.00-0.02) 03/07/21 Na 139 mmol/L (136-145) 03/07/21 K 3.6 mmol/L (3.5-5.1) 03/07/21 Cl 107 mmol/L (98-107) 03/07/21 CO2 28 mmol/L (21-32) 03/07/21 Anion Gap 4.0 (3-11) 03/07/21 BUN 4 mg/dl (7-18) L 03/07/21 Creatinine 0.58 mg/dl (0.6-1.2) L 03/07/21 Estimated GFR ( Amer) 134.6 ml/min 03/07/21 Estimated GFR (Non-Af Amer) 116.1 ml/min 03/07/21 BUN/Creatinine Ratio 6.2 (10-20) L 03/07/21 Glu 78 mg/dl (70-99) 03/07/21 Ca 9.2 mg/dl (8.5-10.1) 03/07/21 Phosphorus Level 3.9 mg/dl (2.5-4.9) 03/06/21 Total Bilirubin 1.2 mg/dl (0.2-1) H 03/07/21 AST 80 U/L (15-37) H 03/07/21 ALT 67 (12-78) 03/07/21 Alkaline Phosphatase 60 U/L (45-117) 03/07/21 TP 7.1 gm/dl (6.4-8.2) 03/07/21 Albumin 3.5 gm/dl (3.4-5.0) 03/07/21 Globulin 3.6 gm/dl (2.5-4.0) 03/07/21 Albumin/Globulin Ratio 1.0 (0.9-2) 03/07/21 Mg 2.1 mg/dl (1.8-2.4) 03/06/21 10:56 03/06/21 Calcium Level 9.2 mg/dl (8.5-10.1) 03/07/21 04:43 03/07/21 Prothromb Time International Ratio 1.0 (0.9-1.1) 03/06/21 10:56 03/06/21 Diagnostic Findings (Past 24 Hours) Brain MRI 03/06/21 10:45 MR brain wo con HISTORY: 40 years-old Female off balance, falling acute weakness COMPARISON: Head CT 07/20/2020 TECHNIQUE: Multiplanar multisequence MRI the brain was obtained without the use of IV contrast FINDINGS: Horticultural Farmer localizer images demonstrate no gross extracranial abnormality. There is no restricted diffusion to suggest acute or subacute infarct. Midline structures appear unremarkable. No acute intracranial hemorrhage, midline shift, abnormal extra-axial collection, hydrocephalus or intracranial mass. No significant T2/FLAIR signal abnormalities of the brain parenchyma. Cerebral venous sinuses and major arterial flow voids appear patent. The mastoid air cells and paranasal sinuses appear generally clear. Unremarkable soft tissues and orbits. IMPRESSION: Unremarkable MRI of the brain. ACT 112: Negative or not required by law. The above report was generated using voice recognition software. It may contain grammatical, syntax or spelling errors. Electronically signed by: Jorge L Rodriguez M.D. 03/06/2021 2:17 PM Chest X-Ray 03/06/21 10:45 XR chest 1V portable HISTORY: 40 years-old Female weakness acute weakness COMPARISON: CTA chest 07/12/2015 TECHNIQUE: Portable AP view of the chest FINDINGS: The cardiomediastinal and hilar silhouettes are within normal limits. There is no pneumothorax, pleural effusion, airspace consolidation or overt pulmonary edema. Bones of the chest appear grossly intact. IMPRESSION: No acute process. ACT 112: Negative or not required by law. The above report was generated using voice recognition software. It may contain grammatical, syntax or spelling errors. Electronically signed by: Jorge L Rodriguez M.D. 03/06/2021 11:21 AM Liver Ultrasound 03/06/21 16:17 US liver HISTORY: 40 years-old Female Hepatitis acute right upper quadrant abdominal pain COMPARISON: CT abdomen and pelvis 07/20/2020 TECHNIQUE: Multiple real-time sonographic images of the abdominal right upper quadrant were obtained assessing grayscale appearance and color flow FINDINGS: The visualized pancreas is unremarkable. There is increased echogenicity of the hepatic parenchyma. No hepatic mass or marginal nodularity identified. Contracted gallbladder without cholelithiasis or pericholecystic fluid. The gallbladder wall measures 3 mm. Negative sonographic Tracy's sign. The common bile duct is normal measuring 2 mm. Unremarkable right kidney without hydronephrosis. IMPRESSION: 1. Contracted gallbladder without cholelithiasis or sonographic evidence of acute cholecystitis. 2. Hepatic steatosis. 3. No biliary ductal dilation. ACT 112: Negative or not required by law. The above report was generated using voice recognition software. It may contain grammatical, syntax or spelling errors. Electronically signed by: Jorge L Rodriguez M.D. 03/06/2021 6:27 PM I & O Totals 24 Hours 03/06/21 03/07/21 03/08/21 06:59 06:59 06:59 Intake Total 7.36 / 2067.36 Output Total 850 / 850 Balance 1217.36 / 1217.36 Cumulative 03/06/21 10:09 thru 03/07/21 06:43 Intake Total 2067.36 Output Total 850 Balance 1217.36 RT Ventilator Mngmt (Last Documented) Ventilator Ordered Settings Respiratory Rate 19 03/07/21 06:30 Ventilator - PT Measurements Respiratory Rate 19 End-Tidal CO2 33 Coding Level of Care Code Critical Care 1st 30-74 mins Diagnoses Alcohol withdrawal F10.230 Complication of substance-induced condition: uncomplicated Transaminitis R74.01 Hyperammonemia E72.20 Anxiety F41.9 Hypothyroidism E03.9 DVT prophylaxis Z29.9 (1) Alcohol withdrawal Complication of substance-induced condition: uncomplicated Qualified Code(s): F10.230 - Alcohol dependence with withdrawal, uncomplicated
--- NOTE | 2021-03-07 12:04 | Hospitalist Progress Note ---
Date of Service March 07, 2021 Assessment & Plan (1) Alcohol withdrawal: (2) Elevated AST (SGOT): Plan: #. Alcohol withdrawal #. Tommy Keene Alcohol withdrawal detoxification in July 2020, has been having issues with alcohol since last 2 years, has been drinking since age 20 Last drink 5 days ago, lately drinking 1-2 bottles of wine. Urine drug screen including alcohol level negative. Clinically, patient on Precedex drip, shaking/tremors and sitting up in the bed. Continue with IV thiamine and IV folic acid for few days then transition to oral Continue with Precedex drip per ICU team. Supportive management, diet when able, AWSS protocol #. Mild hyponatremia- Resolved. Admitting sodium 135, likely secondary to poor oral intake Encourage protein intake in diet when able, will continue to monitor #. Electrolytes Potassium 3.4 at admission, monitor and replete as appropriate. Get magnesium and phosphorus level. #. Transaminitis #. Hyperammonemia: NH3 of 46 at admission, resolved. Admitting bilirubin mildly elevated with AST and ALT elevation, ALP normal Outpatient concern for alcoholic hepatitis and was started on prednisone, patient did not get a chance to take it. GI evaluated: LFT daily 03/06 liver ultrasound: Hepatic steatosis Admitting hepatitis panel: Pending #. History of hypothyroidism Admitting TSH mildly elevated at 6.6 with normal free T4 Continue with home dose of levothyroxine Full code Lovenox Disposition: DC uncertain. Admission and Anticipated Discharge Date Admission Date: March 06, 2021 Subjective Patient was sitting up in bed, on room air, alert and oriented but not able to carry on communication appropriately, was transferred to ICU overnight for uncontrolled agitation despite multiple doses of IV Ativan. ROS not assessable d/t cognition status. Patient on Precedex drip at baseline exam. Physical Exam Physical Exam: GENERAL: Alert and oriented x3, not able to cooperate, shaking, mild to moderate distress, on RA. HEENT: No pallor, no icterus. Pupils equal, round and reactive to light. Oral mucosa moist. NECK: No JVD, no neck masses. HEART: S1 and S2 heard. Regular rate and rhythm. No murmur, no gallop. RESPIRATORY SYSTEM: Normal AP diameter. No accessory muscle use. No wheezing, no crackles. ABDOMEN: Soft, bowel sounds present, nontender, no distention. CENTRAL NERVOUS SYSTEM: No facial droop. N/A. EXTREMITIES: No edema, no erythema seen. Shaking of hands. Results & Data Results & Data ([facility]) Vital Signs (Past 12 Hours) Vital Signs Temp Pulse Resp BP Pulse Ox 03/07/21 11:26 76 03/07/21 09:30 123 H 24 132/90 94 03/07/21 09:15 140 H 17 131/106 H 87 L 03/07/21 09:00 100 H 23 136/98 97 03/07/21 08:45 75 14 132/95 03/07/21 08:30 77 21 131/93 03/07/21 08:15 71 20 137/98 03/07/21 08:00 72 20 136/98 03/07/21 07:45 73 18 127/96 95 03/07/21 07:30 70 20 135/92 03/07/21 07:15 72 21 127/94 03/07/21 07:00 71 20 118/91 03/07/21 06:30 72 19 119/88 03/07/21 06:00 97 H 28 H 130/101 H 98 03/07/21 05:45 115 H 20 135/97 97 03/07/21 05:31 140/116 H 03/07/21 05:15 131 H 3 L 143/112 H 95 03/07/21 05:00 84 22 136/98 81 L 03/07/21 04:46 93 H 21 136/101 H 95 03/07/21 04:30 106 H 22 126/101 H 91 03/07/21 04:00 135 H 20 139/105 H 81 L 03/07/21 03:45 91 H 15 116/95 96 03/07/21 03:30 86 16 121/89 97 03/07/21 03:15 86 16 122/95 97 03/07/21 03:00 84 19 114/85 96 03/07/21 02:45 90 18 120/84 96 03/07/21 02:30 82 15 112/85 96 03/07/21 02:15 82 15 113/86 96 03/07/21 02:00 81 14 119/91 96 03/07/21 01:45 81 16 135/99 97 03/07/21 01:30 83 21 118/91 95 03/07/21 01:15 79 17 123/88 95 03/07/21 01:00 80 16 117/86 96 03/07/21 00:45 79 17 115/84 95 03/07/21 00:30 85 21 115/83 95 03/07/21 00:11 36.1 C L (1) Alcohol withdrawal Complication of substance-induced condition: uncomplicated Qualified Code(s): F10.230 - Alcohol dependence with withdrawal, uncomplicated
[2021-03-07] MEDS: ENOXAPARIN INJ 40 MG/0.4 ML SYR SQ SCH (12:14)
[2021-03-07] MEDS ORDERED: GABAPENTIN 400 MG CAP PO SCH (12:15)
[2021-03-07] MEDS: MULTIVITAMIN TAB PO SCH (13:35)
[2021-03-07] MEDS: LORazepam 2 MG/4 ML VIAL IV PRN (13:36)
[2021-03-07] MEDS: NORMOSOL-R 1,000 ML IV SCH (20:08)
[2021-03-08] MEDS: LORazepam 2 MG/4 ML VIAL IV PRN ×3 (00:15→08:24)
[2021-03-08 05:00] LABS: Basophils # (auto) 0.03 K/uL (0-0.2); Basophils % (auto) 0.5 %; Eosinophils # (auto) 0.11 K/uL (0-0.5); Eosinophils % (auto) 1.7 %; Hematocrit (blood only) 37.2 % (37-47); Hemoglobin 12.3 g/dL (12.0-16.0); Immature Granulocytes # (auto) 0.02 K/uL (0.00-0.02); Immature Granulocytes % (auto) 0.3 %; Lymphocytes # (auto) 1.86 K/uL (1.2-3.4); Mean Corpuscular Hemoglobin 31.9 pg (25-34); Mean Corpuscular Hgb Conc 33.1 g/dL (32-36); Mean Corpuscular Volume 96.4 fL (80-100); Mean Platelet Volume 10.9 fL (7.4-10.4); Neutrophils # (auto) 4.03 K/uL (1.4-6.5); Neutrophils % (auto) 60.5 %; Platelet Count 134 K/uL (130-400); RDW Coefficient of Variation 12.2 % (11.5-14.5); RDW Standard Deviation 42.6 fL (36.4-46.3); Red Blood Count 3.86 M/uL (4.2-5.4); White Blood Count 6.65 K/uL (4.8-10.8)
[2021-03-08] MEDS: LEVOTHYROXINE SODIUM 75 MCG TABLET PO SCH (05:01)
[2021-03-08 05:26] LABS: Albumin Level 3.5 gm/dl (3.4-5.0); BUN Creatinine Ratio 7.3 (10-20); Calcium 9.3 mg/dl (8.5-10.1); Creatinine Clr Calc Pharmacy 107.3 ml/min; Est GFR (African American) 138.6 ml/min; Est GFR (Non-African American) 119.6 ml/min; Magnesium 2.2 mg/dl (1.8-2.4); Potassium 3.5 mmol/L (3.5-5.1)
[2021-03-08 05:29] LABS: Bilirubin,Total 1.2 mg/dl (0.2-1); Globulin 3.5 gm/dl (2.5-4.0); Phosphorus 3.8 mg/dl (2.5-4.9)
--- NOTE | 2021-03-08 07:31 | Electrocardiogram Report ---
Test Reason : Blood Pressure : / mmHG Vent. Rate : 070 BPM Atrial Rate : 070 BPM P-R Int : 184 ms QRS Dur : 084 ms QT Int : 394 ms P-R-T Axes : 059 042 029 degrees QTc Int : 425 ms Normal sinus rhythm Normal ECG When compared with ECG of 20-JUL-2020 13:12, No significant change Confirmed by Ethan Ramírez ([id number]) on 03/08/2021 7:31:12 AM Referred By: REFERRED SELF Confirmed By:Ethan Ramírez
[2021-03-08] MEDS ORDERED: THIAMINE HCL 200 MG in SODIUM CHLORIDE 0.9% 50 ML IV ONE (08:00)
[2021-03-08] MEDS: NORMOSOL-R 1,000 ML IV SCH ×2 (08:21→21:08)
[2021-03-08] MEDS: ENOXAPARIN INJ 40 MG/0.4 ML SYR SQ SCH (08:21)
[2021-03-08] MEDS: FOLIC ACID 1 MG in SYRINGE 9.8 ML IV SCH (08:22)
[2021-03-08] MEDS: MULTIVITAMIN TAB PO SCH (08:22)
--- NOTE | 2021-03-08 10:36 | Critical Care Progress Note ---
Date of Service March 08, 2021 Assessment & Plan (1) Alcohol withdrawal: (2) Transaminitis: (3) Anxiety: (4) Elevated LFTs: Plan: Impression: 40-year-old female with alcohol delirium tremens transferred to the ICU after requiring high-dose Ativan and Zyprexa after she became combative and was placed in four-point restraints. Neuro - Alcohol withdrawaldelirium tremens -Off Precedex since 03-27 -Continue with CIWA protocol with IV Ativan -Received banana bag x1, continue thiamine, folate, multivitamin Cardiac - No history of cardiac disease. Sinus tachycardia Continuous monitoring on telemetry Respiratory - No history of pulmonary disease. Currently maintaining oxygen saturation on room air and protecting airway. Continuous monitoring pulse ox GI - Transaminitispatient with mild elevation of LFTs and elevated ammonia Maddrey's DF : -8.9, no indication for steroids -Liver ultrasound with hepatic steatosis, no evidence of acute cholecystitis or biliary ductal dilation. -LFTs trending down -No laboratory signs of cirrhosis RENAL/LYTES - Creatinine stable, no severe electrolyte abnormalities. Replete electrolytes as indicated monitor routine BMPs - Strict I's and O's HEME - -- Thrombocytopenia--> improving Likely from alcohol continue to monitor H&H stable, monitor routine CBC ID - No indication for infectious process at this time. Monitor fever curve Endo: Hypothyroidism -Continue Synthroid --Prophylaxis VTE: Lovenox GI: Protonix Lines: Peripheral Diet: Regular Plan: In/out: +211, urine output 1951 Patient has been off Precedex for more than 12 hours. She is following commands. She is awake alert oriented. CAM ICU is negative She did get total of 6 mg of Ativan in the last 12 hours. Change thiamine and multivitamin to p.o. I will start the patient on 1 mg of Ativan 3 times daily for the time being. Patient is hemodynamically stable to be downgraded to medical floor. Please note the above document was generated using voice recognition software. It may contain grammatical, syntax or spelling errors.Any formal questions or concerns about the content, text or information contained within the body of this dictation should be directly addressed to the provider for clarification. Admission and Anticipated Discharge Date Admission Date: March 06, 2021 Subjective Patient seen and examined at bedside. No acute distress. Patient got total 6 mg of Ativan in the last 12 hours. She has been off Precedex drip since 7 PM yesterday She is answering all the questions. She does not feel to be the jittery. Denied any chest pain, no shortness of breath, no headache, no nausea, no vomiting Review of Systems Review of Systems: All systems reviewed & are unremarkable except as noted in Subjective Physical Exam Physical Exam: Constitutional: No acute distress HEENT: EOMI, PERRLA Respiratory system: Good air entry bilaterally, no wheeze, rhonchi, no crackles CVS: S1-S2 positive, no murmurs or gallops Abdomen: Soft, nontender, nondistended, positive bowel sounds x4 Extremities: +2 pulses bilaterally radialis/ dorsalis pedis, no cyanosis, no edema Neuro: Awake alert oriented x3 Psych: Normal mood and affect G/U: No Tavarez Skin: no rashes, warm and dry Lymphatic: no cervical or axillary lymphadenopathy Results & Data Results & Data ([facility]) Vital Signs (Past 12 Hours) Vital Signs Temp Pulse Pulse Resp BP BP Pulse Ox 03/08/21 07:44 36.6 C 124 H 19 117/72 99 03/08/21 06:00 82 20 122/84 97 03/08/21 05:00 85 20 134/92 100 03/08/21 04:00 79 14 129/86 97 03/08/21 03:00 85 22 131/95 99 03/08/21 02:00 66 20 137/88 95 03/08/21 01:00 76 20 109/72 95 03/08/21 00:00 77 14 121/79 96 03/07/21 23:00 72 18 113/82 95 03/08/21 04:28 03/08/21 04:28 Coding Level of Care Code 63181 Subseq Hosp Care Lvl 3 Diagnoses Alcohol withdrawal F10.231 Complication of substance-induced condition: with delirium Transaminitis R74.01 Anxiety F41.9 Elevated LFTs R79.89 (1) Alcohol withdrawal Complication of substance-induced condition: with delirium Qualified Code(s): F10.231 - Alcohol dependence with withdrawal delirium
[2021-03-08] MEDS ORDERED: POTASSIUM CHLORIDE CRTAB 20 MEQ TABCR PO ONE (10:45)
--- NOTE | 2021-03-08 10:48 | Gastroenterology Progress Note ---
Date of Service March 08, 2021 Assessment & Plan (1) Elevated LFTs: Plan: Secondary to mild alcoholic hepatitis/fatty liver. No evidence of gallbladder dx or bile duct obstruction. DF is a negative 8.9 - so no need for steroids/Trental. No evidence of cirrhosis on imaging and no suggestion of cirrhosis by lab testing. Needs complete/permanent alcohol abstention - discussed in detail with the pt. She is very motivated. No GI procedures planned. Regular diet. GI will sign off. Please notify us of new/worsening GI issues. 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 US with fatty liver, no gallbladder or bile duct abnormalities. LFT improving. Awake, alert, no complaints, mild tremor, mild anxiety. Review of Systems Review of Systems: ROS: Gen: Denies weakness, fevers, weight loss Eyes: No eye redness, or pain, no recent vision changes Resp: No SOB, no cough Cardio: No palpitations/irregular beats, no chest pain GI: No abdominal pain, no nausea/vomiting : Denies pain on urination Skin: No jaundice, itching or new rashes Physical Exam Constitutional: well developed, + thin and cooperative Eyes: PERRL, conjunctivae normal, anicteric sclerae Respiratory: normal respiratory effort, lungs clear to auscultation Cardiovascular: RRR, no murmur, no edema Gastrointestinal (Abdomen): normal bowel sounds, soft, nontender, no hepatosplenomegaly Skin: no rashes, warm and dry normal turgor Neurologic: PERRL, EOMI, accommodation nl, no face palsy, no dysarthria awake; not confused Motor/Sensory: + tremor (mild; no asterixes) Psychiatric: A+Ox3, euthymic affect Orientation: alert, oriented x 3 and c ooperative Results & Data ([facility]) Vital Signs (Past 12 Hours) Vital Signs Temp Pulse Pulse Resp BP BP Pulse Ox 03/08/21 07:44 36.6 C 124 H 19 117/72 99 03/08/21 06:00 82 20 122/84 97 03/08/21 05:00 85 20 134/92 100 03/08/21 04:00 79 14 129/86 97 03/08/21 03:00 85 22 131/95 99 03/08/21 02:00 66 20 137/88 95 03/08/21 01:00 76 20 109/72 95 03/08/21 00:00 77 14 121/79 96 03/07/21 23:00 72 18 113/82 95 Laboratory Results T Bili 1.2, AST 66, ALT 61, Alk Phos 56, WBC 6, Hb 12.3, Hct 37, Plts 134, Na 137, K 3.5, Cl 102, CO2 25, BN 4, Cr 0.53, Plts 57. Diagnostic Findings RU US 03/08/20: 1. Contracted gallbladder without cholelithiasis or sonographic evidence of acute cholecystitis. 2. Hepatic steatosis. 3. No biliary ductal dilation.
[2021-03-08 10:50] LABS: Hepatitis B Surf Ag Rflx Conf Neg (Neg)
[2021-03-08 11:19] LABS: Hepatitis C IgG 13Yrs+Old_Rflx Neg (Neg)
[2021-03-08] MEDS ORDERED: PANTOprazole 40 MG TAB PO ONE (11:30)
[2021-03-08] MEDS: LORazepam 1 MG TAB PO SCH ×2 (13:20→20:53)
--- NOTE | 2021-03-08 13:59 | Hospitalist Progress Note ---
Date of Service March 08, 2021 Assessment & Plan (1) Alcohol withdrawal: (2) Elevated AST (SGOT): Plan: #. Alcohol withdrawal #. 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 Urine drug screen including alcohol level negative. Clinically, patient off of Precedex drip, fine tremors of the hands noted, doing better, AOx3, motivated to quit drinking alcohol. Though patient looks lean and thin, she exercises (has gym in the basement), has adequate diet, has been functionally independent. Continue with thiamine, multivitamin and folic acid Can be downgraded to med telemetry Supportive management, diet when able, AWSS protocol with Ativan #. Mild hyponatremia- Resolved. Admitting sodium 135, likely secondary to poor oral intake Resolved nitor #. Electrolytes Potassium 3.4 at admission, monitor and replete as appropriate. #. Transaminitis #. Hyperammonemia: NH3 of 46 at admission, resolved. Admitting bilirubin mildly elevated with AST and ALT elevation, ALP normal Outpatient concern for alcoholic hepatitis and was started on prednisone, patient did not get a chance to take it. GI evaluated: TF -8.9, no need for steroids/Trental. 03/06/21 liver ultrasound: Hepatic steatosis Admitting hepatitis panel: Pending #. History of hypothyroidism Admitting TSH mildly elevated at 6.6 with normal free T4 Continue with home dose of levothyroxine Full code Lovenox Disposition: Downgrade to med telemetry, expect discharge in next few days. Admission and Anticipated Discharge Date Admission Date: March 06, 2021 Subjective Patient was lying in bed, on room air, off of Precedex drip overnight, NAD, no new acute events overnight. Patient denies any fever/chills/chest pain/palpitation/other review of symptoms. Counseled on alcohol cessation, patient seems motivated. Physical Exam Physical Exam: GENERAL: Alert and oriented x3. NAD, on RA. Fine tremors of hands noted. HEENT: No pallor, no icterus. Pupils equal, round and reactive to light. Oral mucosa moist. NECK: No JVD, no neck masses. HEART: S1 and S2 heard. Regular rate and rhythm. No murmur, no gallop. RESPIRATORY SYSTEM: Normal AP diameter. No accessory muscle use. No wheezing, no crackles. ABDOMEN: Soft, bowel sounds present, nontender, no distention. CENTRAL NERVOUS SYSTEM: No facial droop. Speech is clear. Obeys simple commands. Moves extremities. EXTREMITIES: No edema, no erythema seen. Results & Data Results & Data ([facility]) Vital Signs (Past 12 Hours) Vital Signs Temp Pulse Pulse Resp BP BP Pulse Ox 03/08/21 07:44 36.6 C 124 H 19 117/72 99 03/08/21 06:00 82 20 122/84 97 03/08/21 05:00 85 20 134/92 100 03/08/21 04:00 79 14 129/86 97 03/08/21 03:00 85 22 131/95 99 03/08/21 02:00 66 20 137/88 95 (1) Alcohol withdrawal Complication of substance-induced condition: uncomplicated Qualified Code(s): F10.230 - Alcohol dependence with withdrawal, uncomplicated
[2021-03-08] MEDS ORDERED: GABAPENTIN 400 MG CAP PO SCH (16:15)
[2021-03-09] MEDS: LORazepam 1 MG/2 ML VIAL IV PRN ×2 (00:22→06:51)
[2021-03-09 03:16] LABS: Hepatitis A Antibody IgM NON-REACTIVE (NON-REACTIVE); Hepatitis B Core Antibody IgM NON-REACTIVE (NON-REACTIVE)
[2021-03-09 04:53] LABS: Basophils # (auto) 0.01 K/uL (0-0.2); Basophils % (auto) 0.2 %; Eosinophils % (auto) 1.7 %; Hematocrit (blood only) 34.9 % (37-47); Hemoglobin 11.7 g/dL (12.0-16.0); Immature Granulocytes # (auto) 0.01 K/uL (0.00-0.02); Immature Granulocytes % (auto) 0.2 %; Lymphocytes # (auto) 1.48 K/uL (1.2-3.4); Lymphocytes % (auto) 25.4 %; Mean Corpuscular Hemoglobin 32.4 pg (25-34); Mean Corpuscular Hgb Conc 33.5 g/dL (32-36); Mean Corpuscular Volume 96.7 fL (80-100); Mean Platelet Volume 10.9 fL (7.4-10.4); Monocytes # (auto) 0.74 K/uL (0.11-0.59); Monocytes % (auto) 12.7 %; Neutrophils # (auto) 3.48 K/uL (1.4-6.5); Neutrophils % (auto) 59.8 %; Platelet Count 155 K/uL (130-400); RDW Coefficient of Variation 12.2 % (11.5-14.5); RDW Standard Deviation 43.3 fL (36.4-46.3); Red Blood Count 3.61 M/uL (4.2-5.4); White Blood Count 5.82 K/uL (4.8-10.8)
[2021-03-09 05:20] LABS: Albumin Level 3.2 gm/dl (3.4-5.0); BUN Creatinine Ratio 7.3 (10-20); Est GFR (African American) 133.8 ml/min; Est GFR (Non-African American) 115.5 ml/min; Potassium 3.9 mmol/L (3.5-5.1)
[2021-03-09 05:24] LABS: Albumin Globulin Ratio 0.9 (0.9-2); Bilirubin,Total 0.6 mg/dl (0.2-1); Globulin 3.5 gm/dl (2.5-4.0); Total Protein 6.7 gm/dl (6.4-8.2)
[2021-03-09] MEDS ORDERED: PROPRANOLOL HCL 10 MG TAB PO ONE (06:00)
[2021-03-09] MEDS: LEVOTHYROXINE SODIUM 75 MCG TABLET PO SCH (06:05)
[2021-03-09] MEDS: MULTIVITAMIN TAB PO SCH (08:36)
[2021-03-09] MEDS: LORazepam 1 MG TAB PO SCH (08:36)
[2021-03-09] MEDS: ENOXAPARIN INJ 40 MG/0.4 ML SYR SQ SCH (08:36)
[2021-03-09] MEDS ORDERED: FOLIC ACID 1 MG TAB PO SCH (09:00)
[2021-03-09] MEDS ORDERED: PANTOprazole 40 MG TAB PO SCH (09:00)
[2021-03-09] MEDS ORDERED: THIAMINE HCL 100 MG TAB PO SCH (09:00)
[2021-03-09] MEDS: NORMOSOL-R 1,000 ML IV SCH (09:17)
--- NOTE | 2021-03-09 12:20 | Discharge Summary ---
Date of Service March 09, 2021 Admission HPI Per Admitting Provider 40-year-old lady with PMH of alcohol abuse, alcohol withdrawal needing hospital admission, anxiety on propranolol, hypothyroidism on levothyroxine, elevated liver enzymes who reports drinking alcohol since age 20 and was admitted in July 2020 for alcohol withdrawal detoxification, was sober until mid December 2020 when she started drinking casually with friends which got aggravated to drinking alone 1-2 bottles of wine as of lately, last drink 5 days ago per patient. Per patient she has been having issues with alcohol since last 2 years. Patient has a counselor as outpatient. 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 She reports she was feeling better after stopping drinking 5 days ago [employer]OR OF CATH [employer] until last night when she started having restlessness and tremors along with the above symptoms. Patient denies smoking tobacco or using any illegal drugs or marijuana. No self history of heart disease/cancer/blood clot. Family history of prostate cancer in father and grandfather, breast cancer in 2 aunts, B-cell lymphoma in grandmother from father's side. Patient boosted against Covid. Denies fever/headache/cough/pain burning with passing urine. Reports having loose bowel movement since last couple of days until today when she had normal bowel movement. Other ROS negative except as mentioned above. Full code. Admission Exam Per Admitting Provider GENERAL: Alert and oriented x3. NAD, on RA. HEENT: No pallor, no icterus. Pupils equal, round and reactive to light. Oral mucosa moist. NECK: No JVD, no neck masses. HEART: S1 and S2 heard. Regular rate and rhythm. No murmur, no gallop. RESPIRATORY SYSTEM: Normal AP diameter. No accessory muscle use. No wheezing, no crackles. ABDOMEN: Soft, bowel sounds present, nontender, no distention. CENTRAL NERVOUS SYSTEM: No facial droop. Speech is clear. Obeys simple commands. Moves extremities. EXTREMITIES: No edema, no erythema seen. Fine tremors in the hand noted. Principal Diagnosis Alcohol withdrawal Delirium tremens Discharge Exam GENERAL: Alert and oriented x3. NAD, on RA. Fine tremors of hands improved to none HEENT: No pallor, no icterus. Pupils equal, round and reactive to light. Oral mucosa moist. NECK: No JVD, no neck masses. HEART: S1 and S2 heard. Regular rate and rhythm. No murmur, no gallop. RESPIRATORY SYSTEM: Normal AP diameter. No accessory muscle use. No wheezing, no crackles. ABDOMEN: Soft, bowel sounds present, nontender, no distention. CENTRAL NERVOUS SYSTEM: No facial droop. Speech is clear. Obeys simple commands. Moves extremities. EXTREMITIES: No edema, no erythema seen. Discharge Data Allergies Allergy/AdvReac Type Severity Reaction Status Date / Time No Known Allergies Allergy Verified 03/06/21 11:56 Consultations 03/06/21 15:19 ED Decision to Admit Stat 03/06/21 21:33 Consult Gastroenterology Routine 03/06/21 23:44 Consult Wall And Floor Tiler Routine Ordered Studies 03/06/21 10:45 MR brain wo con Stat 03/06/21 16:17 US liver Routine Hospital Course (1) Alcohol withdrawal: (2) Elevated AST (SGOT): 40-year-old lady with PMH of alcohol abuse, alcohol withdrawal needing hospital admission, anxiety on propranolol, hypothyroidism on levothyroxine, elevated liver enzymes who reports drinking alcohol since age 20 and was admitted in July 2020 for alcohol withdrawal detoxification, was sober until mid December 2020 when she started drinking casually with friends which got aggravated to drinking alone 1-2 bottles of wine as of lately, 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 She was managed for the following: #. Alcohol withdrawal #. Delerium Tremens #. 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 Admitting urine drug screen including alcohol level negative. Patient required ICU admission and Precedex drip during her hospital course, currently doing better with improvement in her tremors of hand and also improvement in her gait. Counseled about alcohol cessation multiple times, patient motivated to quit drinking alcohol. Patient planning to get involved in AA by herself. Patient advised to follow-up with her primary care physician within a week time and follow-up with her counselor as an outpatient. Continue with multivitamins, folic acid and thiamine. #. Mild hyponatremia- Resolved. Admitting sodium 135, likely secondary to poor oral intake Resolved #. Electrolytes Potassium 3.4 at admission, monitor and replete as appropriate. #. Transaminitis #. Hyperammonemia: NH3 of 46 at admission, resolved. Admitting bilirubin mildly elevated with AST and ALT elevation, ALP normal Outpatient concern for alcoholic hepatitis and was started on prednisone, patient did not get a chance to take it. GI evaluated: TF -8.9, no need for steroids/Trental. 03/06/21 liver ultrasound: Hepatic steatosis Admitting hepatitis panel: Pending Transaminitis resolved. #. History of hypothyroidism Admitting TSH mildly elevated at 6.6 with normal free T4 Continue with home dose of levothyroxine Full code Patient being discharged home with following instruction at the point of discharge: Follow-up with your primary care physician within a week time. Follow-up with your counselor as an outpatient. Encourage strict avoidance of alcohol in future. Involving in groups like AA might be of help as discussed at the bedside, encouraged to establish with AA. Take medications as prescribed. Total Time Total Time Spent Total Time Spent (In Minutes): 40 Discharge Plan Discharge Items Patient Disposition: Home - Self-Care Reason For Visit: NEURO Discharge Diagnosis: Alcohol withdrawal Delirium tremens Condition on Discharge: Fair Activity: Resume your previous activity Non-emergency contact: Primary Care Provider Call non-emergency contact if: you have any medication questions and your symptoms worsen Follow-up/Referrals: Greer Capone PA-C [Primary Care Provider] - Diet: Regular Addtl Attending Provider Instructions: Follow-up with your primary care physician within a week time. Follow-up with your counselor as an outpatient. Encourage strict avoidance of alcohol in future. Involving in groups like AA might be of help as discussed at the bedside, encouraged to establish with AA. Take medications as prescribed. Pending Studies at Discharge: No Stand-Alone Forms: My [employer], Smoking Cessation Medications and DC Order Prescriptions: New folic acid 1 mg Tablet 1 mg PO DAILY 30 Days Qty: 30 RF: 0 thiamine HCl (vitamin B1) [Vitamin B-1] 100 mg Tablet 100 mg PO DAILY 15 Days Qty: 15 RF: 0 Continued levothyroxine 75 mcg tablet 75 mcg PO DAILY RF: 0 propranolol 10 mg Tablet 10 mg PO BID RF: 0 lorazepam 0.5 mg tablet 0.5 mg PO Q6H RF: 0 ondansetron HCl [Zofran] 4 mg Tablet 4 mg PO Q6H PRN (Reason: Nausea) RF: 0 multivitamin Tablet 1 tab PO DAILY Qty: 30 RF: 0 Discontinued prednisone 10 mg tablet 10 mg PO UD RF: 0 Discharge Orders: Discharge Order (Routine); Ordered 03/09/21 Ordered By: Kareem Smith Admission Data Admit Date/Time: 03/06/21 16:01 Attending Provider: Kareem Smith Admit Provider: Kareem Smith Primary Care Provider: Greer Capone Other Providers: Kareem Smith ; Hoa Magaña ; Tunde Bolanos
[2021-03-09] MEDS ORDERED: PROPRANOLOL HCL 10 MG TAB PO SCH (21:00)
[2021-03-09] MEDS ORDERED: chlordiazePOXIDE HCl 5 MG CAP PO SCH (22:00)
[2021-03-10] MEDS ORDERED: GABAPENTIN 400 MG CAP PO SCH (04:15)
== END 2021-03-09 12:43 | disposition home or self-care (01) | DRG 897 ==
LOC: ED 10:09 → EDINP 16:01 → 2N 18:50 → 1E 23:35

== ENCOUNTER 2021-12-27 05:39 | Inpatient (IN) ==
--- NOTE | 2021-12-23 14:32 | Anesthesiology Consultation ---
Date of Service December 23, 2021 Assessment & Plan (1) Encounter for pre-operative examination: Chart Review Chart Review: Acceptable Risk for Surgery and Patient NOT seen in Pre Admission Testing Consults Requested none History Surgery Operation Date: 12/27/21 09:10 Proposed Procedures p Section (Delivery of Baby Through Abdominal Incision) - Marilyn Kay MD Height/Weight Height: 5 ft 2 in Weight: 61.689 kg Allergies Allergy/AdvReac Type Severity Reaction Status Date / Time No Known Allergies Allergy Verified 12/23/21 11:35 Medications Home Medications Medication Instructions Recorded Confirmed Last Taken ondansetron HCl 4 mg tablet 4 mg PO Q6H PRN Nausea 07/20/20 12/23/21 03/05/21 (Zofran) prenat.vits,hitesh,ktu-lnfg-etvli 1 tab PO DAILY 05/27/21 12/23/21 Unknown breast pump #1 ea 09/14/21 12/21/21 Unknown levothyroxine 88 mcg tablet 88 mcg PO DAILY #60 tabs 10/12/21 12/23/21 Unknown (Synthroid) Past Medical History Medical History History of anxiety History of asthma as a child Hypothyroidism Past Family History Family History Aunt Breast cancer Paternal Grandmother (Paternal) Lymphoma Other Dyslipidemia Heart disease Hypertension No family history of adverse response to anesthesia Ovarian cancer Denies family history of Colorectal cancer Past Surgical History Surgical History History of colonoscopy History of esophagogastroduodenoscopy (EGD) History of oral surgery tooth extraction S/P section x 1 Social History Smoking Status: Never smoker Hx Alcohol Use: No Alcohol type: wine alcohol intake frequency: other Hx Substance Use: No substance use type: does not use Testing Electrocardiogram Date: 03/06/21 Findings: + NSR @ Chest X-Ray Date: 03/06/21
[2021-12-27] MEDS ORDERED: CITRIC ACID/SODIUM CITRATE 15 ML UDC PO SCH (06:00)
[2021-12-27 06:15] LABS: Basophils # (auto) 0.03 K/uL (0-0.2); Basophils % (auto) 0.3 %; Eosinophils # (auto) 0.23 K/uL (0-0.50); Eosinophils % (auto) 2.4 %; Hematocrit (blood only) 33.9 % (34.1-44.9); Hemoglobin 11.7 g/dl (12.0-16.0); Immature Granulocytes # (auto) 0.05 K/uL (0.00-0.02); Immature Granulocytes % (auto) 0.5 %; Lymphocytes # (auto) 2.89 K/uL (1.2-3.4); Lymphocytes % (auto) 29.6 %; Mean Corpuscular Hemoglobin 29.3 pg (25.0-34.0); Mean Corpuscular Hgb Conc 34.5 g/dL (32.0-36.0); Mean Corpuscular Volume 84.8 fL (80.0-100.0); Mean Platelet Volume 10.7 fL (9.4-12.3); Monocytes # (auto) 0.78 K/uL (0.24-0.82); Neutrophils % (auto) 59.2 %; Platelet Count 266 K/uL (130-400); RDW Coefficient of Variation 13.7 % (11.5-14.5); RDW Standard Deviation 42.5 fL (36.4-46.3); White Blood Count 9.78 K/ul (4.8-10.8)
[2021-12-27 06:36] LABS: Appearance Urine Clear (Clear); Bacteria Urine Automated Negative (Negative); Bilirubin Urine Negative (Negative); Blood Urine Negative (Negative); Cast Urine Automated 0 /lpf (0-5); Color Urine Yellow; Epithelial Cell Urine Auto 20-30 /lpf (0-5); Glucose Urine UA Negative (Negative); Ketones Urine Negative (Negative); Leukocyte Esterase Urine 1+ (Negative); Nitrite Urine Negative (Negative); Protein Urine Negative (Negative); RBC Urine Automated 0-4 /hpf (0-4); Specific Gravity Urine 1.015 (1.000-1.030); Urobilinogen Urine Negative (Negative)
[2021-12-27] MEDS ORDERED: LACTATED RINGER'S 1,000 ML IV SCH (07:00)
[2021-12-27] MEDS ORDERED: MoRPHine SULFATE PF 1 MG/ML 10 ML AMP/VIAL INT SPINAL ONE (07:24)
[2021-12-27] MEDS ORDERED: LACTATED RINGER'S 500 ML IV PRN (07:24)
[2021-12-27] MEDS ORDERED: diphenhydrAMINE 50 MG/ML VIAL IV PRN (07:24)
[2021-12-27] MEDS ORDERED: NALOXONE HCL 0.4 MG/1 ML VIAL/CARP IV PRN (07:24)
[2021-12-27] MEDS ORDERED: NALOXONE HCL 0.08 MG in SYRINGE 1.8 ML IV PRN (07:24)
[2021-12-27] MEDS ORDERED: NALOXONE HCL 1 MG in SODIUM CHLORIDE 0.9% 1000ML 1,000 ML IV PRN (07:24)
[2021-12-27] MEDS ORDERED: NALBUPHINE HCL INJ 10 MG/ML AMP IV PRN (07:24)
[2021-12-27] MEDS ORDERED: HYDROmorphone INJ 0.5 MG/0.5 ML SYR IV PRN (07:24)
[2021-12-27] MEDS ORDERED: ePHEDrine sulfate 50 MG/ML AMP IV PRN (07:24)
[2021-12-27] MEDS ORDERED: NO NARCOTICS OR SEDATIVES SCH (07:30)
[2021-12-27] MEDS ORDERED: DC INTRASPINAL MORPHINE SCH (07:30)
[2021-12-27] MEDS ORDERED: SODIUM CHLORIDE 0.9% 1000ML 1,000 ML IV SCH (07:30)
--- NOTE | 2021-12-27 07:30 | History & Physical Bridge Note ---
Date of Service December 27, 2021 History & Physical Bridge Note I have examined the patient, reviewed the History & Physical and in the interval since the performance of the History & Physical I have noted the following changes of clinical significance: no changes noted
[2021-12-27] MEDS: ceFAZolin 2,000 MG in SYRINGE 0 ML IV SCH ×2 (07:34→07:35)
[2021-12-27] MEDS ORDERED: fentaNYL citrate 100 MCG/2 ML VIAL ONE (07:36)
[2021-12-27] MEDS ORDERED: MoRPHine SULFATE PF 1 MG/ML 10 ML AMP/VIAL ONE (07:36)
[2021-12-27] MEDS ORDERED: OXYTOCIN 10 UNITS/ML 10ML VIAL ONE (07:43)
[2021-12-27] MEDS ORDERED: ONDANSETRON INJ 2 MG/ML 2 ML VIAL ONE (07:57)
[2021-12-27] MEDS ORDERED: ePHEDrine sulfate 50 MG/ML SYR ONE (07:57)
[2021-12-27] MEDS ORDERED: PHENYLEPHRINE 100MCG/ML 5ML SYR ONE (07:57)
--- NOTE | 2021-12-27 09:03 | Operative Report ---
PG Post Operative Report Pre & Post Diagnosis Operation Date: 12/27/21 07:30 Pre-Op Diagnosis: Repeat section Post-Op Diagnosis: Repeat section for living female child at 0808 I identified the patient and participated in the time-out.: Yes Procedure Operation Date: 12/27/21 07:30 Actual Procedures Repeat Low Transverse Section Surgeon Marilyn Kay MD Plant Sciences Professor Abdullahi Moore Estimated Blood Loss 600 Findings Consistent with Post-Op Diagnosis Specimens Cord blood, Placenta Anesthesia Type Spinal Complications none Disposition Accompanied Patient To Recovery: Yes Disposition: L&D Description of Procedure The patient was placed operating table in the supine position with a leftward tilt. She was prepped and draped in standard sterile fashion. The anesthetic was tested and found to be adequate. A time-out was held, identifying correct patient, procedure, positioning and preoperative antibiotics. There were no concerns. A Pfannenstiel skin incision was made with a knife and taken down to the underlying layer of fascia, excising the prior scar. The fascia was incised in the midline with the knife and taken out laterally with scissors. The superior edge of the fascial incision was grasped, elevated and dissected off the underlying rectus both superiorly and inferiorly. The muscles were bluntly in the midline. The peritoneum was entered bluntly. The incision was then stretched. The bladder retractor was placed. The vesicouterine peritoneum was identified, entered with scissors and taken out laterally with scissors. The bladder flap was created digitally. A hysterotomy incision was created transversely in the lower uterine segment, final entry being accomplished in a blunt manner with the facsimile machine operator's fingers. Clear amniotic fluid was encountered. The facsimile machine operator's hand was used to elevate the breech to the hysterotomy. The hips were delivered using mild fundal pressure, the baby was rotated to sacrum-anterior, delivered to the level of the shoulders, where the arms were delivered by sweeping in physiologic fashion, and the head was delivered maintaining the neck in flexion throughout. The cord was clamped and cut and the infant was shown to the parents then handed off to the awaiting amortization clerk. Cord blood was obtained. The placenta was Manually extracted, during which the cord avulsed. The uterus was exteriorized and cleared of all clot and debris with moistened laparotomy sponges. The hysterotomy incision was repaired in two layers, the first in a running locked layer, the second in an imbricating layer. The ovaries and tubes were seen to be normal bilaterally. The uterus was gently replaced in the abdomen, and the gutters were cleared of clot and debris. A final inspection of the hysterotomy revealed good hemostasis. The rectus muscles were allowed to reapproximate naturally. The fascia was then reapproximated with 1 Vicryl in a running nonlocked manner. The fascia was examined and found to be free of defect following closure. The subcutaneous tissue was copiously irrigated and reapproximated with 0-chromic, then the skin edges were closed with 4-0 monocryl in a subcuticular fashion. A dermabond dressing was applied. The mendez was found to be draining clear yellow urine at completion of the procedure. I attest to the content of the Intraoperative Record and any orders documented therein. Any exceptions are noted below. I attest to the content of the Intraoperative Record and any orders documented therein. Any exceptions are noted below. OB Procedure Charges 42533
[2021-12-27] MEDS ORDERED: SENNA 8.6 MG TAB PO PRN (09:43)
[2021-12-27] MEDS ORDERED: DIPHTHERIA/TETANUS/PERTUSSIS 0.5 ML SYR/VIAL IM ONE (09:43)
[2021-12-27] MEDS ORDERED: ONDANSETRON INJ 2 MG/ML 2 ML VIAL IV PRN (09:43)
[2021-12-27] MEDS ORDERED: BENZOCAINE 20% AER SPR 82.5 GM CAN EXT PRN (09:43)
[2021-12-27] MEDS ORDERED: HYDROCORTISONE ACETATE 25 MG SUPP PR PRN (09:43)
[2021-12-27] MEDS ORDERED: MAGNESIUM HYDROXIDE SUSP 30 ML UDC PO PRN (09:43)
--- NOTE | 2021-12-27 10:21 | Anesthesiology Progress Note ---
Date of Service December 27, 2021 Anesthesia Post Procedure Vital Signs Vital Signs: Temp Pulse Resp BP Pulse Ox 12/27/21 10:09 20 12/27/21 09:39 36.4 C L 20 12/27/21 09:29 20 12/27/21 09:19 20 12/27/21 09:09 18 12/27/21 08:59 20 12/27/21 08:49 20 12/27/21 08:49 20 12/27/21 08:39 36.4 C L 20 12/27/21 10:14 66 93 12/27/21 10:09 60 99 12/27/21 10:10 60 124/72 12/27/21 10:04 62 98 12/27/21 09:59 65 99 12/27/21 09:54 65 95 12/27/21 09:49 67 99 12/27/21 09:44 63 96 12/27/21 09:39 65 125/73 96 12/27/21 09:34 63 97 12/27/21 09:29 76 127/78 97 12/27/21 09:24 69 98 12/27/21 09:19 77 93 12/27/21 09:20 77 127/72 12/27/21 09:14 75 94 12/27/21 09:09 67 139/71 98 12/27/21 09:04 71 99 12/27/21 09:00 93 H 139/70 12/27/21 08:59 82 98 12/27/21 08:54 67 96 12/27/21 08:49 76 136/75 97 12/27/21 08:44 74 98 12/27/21 08:40 79 94 12/27/21 08:39 73 141/70 H 97 12/27/21 07:29 74 100 12/27/21 07:26 37.1 C 74 20 120/75 12/27/21 06:02 75 115/72 12/27/21 05:57 18 Transfer of Care Handoff Completed per policy Notes Mental Status: alert / awake / arousable Patient Amnestic to Procedure: Yes Nausea / Vomiting: adequately controlled Pain: adequately controlled Airway Patency, RR, SpO2: stable & adequate BP & HR: stable & adequate Hydration State: stable & adequate Neuraxial Anesthesia: was administered and sensory block is resolving Anesthetic Complications: no major complications apparent and Pt Satisfied with anesthetic care
[2021-12-27] MEDS: ONDANSETRON INJ 2 MG/ML 2 ML VIAL IV PRN ×2 (10:25→16:09)
[2021-12-27] MEDS ORDERED: OXYTOCIN 30 UNITS in LACTATED RINGER'S 1,000 ML IV SCH (11:00)
[2021-12-27] MEDS: KETOROLAC 30 MG/ML VIAL IV PRN ×2 (11:03→21:04)
[2021-12-27] MEDS: LACTATED RINGER'S 1,000 ML IV SCH ×2 (12:46→18:55)
[2021-12-27] MEDS: SIMETHICONE 80 MG CHEW PO SCH ×3 (13:17→21:04)
[2021-12-27] MEDS: DOCUSATE SODIUM 100 MG CAP PO SCH (21:04)
[2021-12-28] MEDS ORDERED: MEPERIDINE HCL 50 MG/ML CARP IV PRN (01:24)
[2021-12-28] MEDS ORDERED: KETOROLAC 30 MG/ML VIAL IV PRN (01:24)
[2021-12-28] MEDS ORDERED: PROMETHAZINE HCL 25 MG in SODIUM CHLORIDE 0.9% 50 ML IV PRN (01:24)
[2021-12-28] MEDS ORDERED: diphenhydrAMINE 50 MG/ML VIAL IV PRN (01:24)
[2021-12-28] MEDS ORDERED: diphenhydrAMINE Capsule 25 MG CAP PO PRN (01:24)
[2021-12-28] MEDS: oxyCODONE/ACETAMINOPHEN 5mg/325mg TAB PO PRN ×4 (03:49→20:23)
[2021-12-28] MEDS: IBUPROFEN 600 MG TAB PO PRN ×4 (03:50→20:24)
--- NOTE | 2021-12-28 05:47 | Obstetrical Progress Note ---
Date of Service <Becca NewellSerjio Serrato DO - Last Filed: 12/28/21 06:46> December 28, 2021 Assessment & Plan <Becca Paco Serrato DO - Last Filed: 12/28/21 06:46> (1) Status post section: Mendez is out, do a trial of OOB and ambulation and then progress diet as tolerated (2) Hypothyroidism: Continue 88 mcg levothyroxine <Marilyn Kay MD - Last Filed: 12/28/21 06:33> (1) Status post section: (2) Hypothyroidism: Subjective <Becca ReeceSerjio Serrato DO - Last Filed: 12/28/21 06:46> Makayla is a 41 y/o female who is POD #1 following delivery at 39 1/7 weeks. She reports feeling well overall this morning. Moderate abdominal cramping & pain well managed on analgesics. Still has mendez in place. Toleratin g meals overnight. Has not ambulated yet. Is passing gas and no bowel movement. Has some persistent lochia with some improvement this morning. Currently bottle feeding and pumping. Review of Systems Denies fever, chills, sweats Denies shortness of breath, difficulty breathing, chest pain, palpitations, chest pressure. Denies breast pain. Denies dysuria. Denies headache or changes in vision. Physical Exam <Becca SSerjio Serrato DO - Last Filed: 12/28/21 06:46> General: Alert, oriented. No acute distress. Cardiac: Regular rate and rhythm, no murmurs/rubs/gallops. Respiratory: Clear to auscultation bilaterally a/p, no wheezes/rales/rhonchi. No increased work of breathing. Symmetrical chest rise. No respiratory distress. Abdomen: Soft, nontender, nondistended. Uterus: Uterine fundus firm, palpable 2 cm below umbilicus. Surgical scar clean and healing well. Lower Extremities: No lower extremity edema or swelling. No deep calf pain. Víctor's negative bilaterally. Results & Data ([facility]) <Becca Paco Serrato DO - Last Filed: 12/28/21 06:46> Vital Signs (Past 12 Hours) Vital Signs Temp Pulse Resp BP Pulse Ox O2 Del Method 12/28/21 03:45 36.9 C 76 18 110/70 10/25/22 01:00 18 97 12/28/21 00:00 18 98 12/27/21 23:00 18 98 12/28/21 00:35 37 C 71 18 108/68 98 Room Air 12/27/21 21:00 20 97 12/27/21 20:00 20 98 12/27/21 19:10 36.7 C 69 20 110/68 100 Room Air 12/27/21 19:10 20 100 12/27/21 18:00 20 100 <Marilyn Kay MD - Last Filed: 12/28/21 06:33> Laboratory Results Laboratory Results - last 24 hr 12/27/21 12/27/21 12/27/21 05:50 05:53 Unknown WBC RBC Hgb Hct MCV MCH MCHC RDW Std Deviation RDW Coeff of Tan Plt Count MPV Immature Gran % (Auto) Neut % (Auto) Lymph % (Auto) [place] % (Auto) Eos % (Auto) Baso % (Auto) Neut # (Auto) Lymph # (Auto) [place] # (Auto) Eos # (Auto) Baso # (Auto) Immature Gran # (Auto) Urine Color Yellow Urine Appearance Clear Urine pH 7.0 Ur Specific [place] 1.015 Urine Protein Negative Urine Glucose (UA) Negative Urine Ketones Negative Urine Blood Negative Urine Nitrite Negative Urine Bilirubin Negative Urine Urobilinogen Negative Ur Leukocyte Esterase 1+ H Urine WBC (Auto) 1-5 Urine RBC (Auto) 0-4 U Hyaline Cast (Auto) 0 U Epithel Cells (Auto) 20-30 H Urine Bacteria (Auto) Negative SARS-CoV-2, RNA, NAAT NEGATIVE Blood Type O Negative Antibody Screen NEGATIVE Screen 12/28/21 12/28/21 05:48 05:48 WBC 8.67 RBC 3.47 L Hgb 10.2 L Hct 30.1 L MCV 86.7 MCH 29.4 MCHC 33.9 RDW Std Deviation 43.6 RDW Coeff of Tan 13.9 Plt Count 218 MPV 10.7 Immature Gran % (Auto) 0.5 Neut % (Auto) 71.0 Lymph % (Auto) 20.1 [place] % (Auto) 6.3 Eos % (Auto) 1.6 Baso % (Auto) 0.5 Neut # (Auto) 6.16 Lymph # (Auto) 1.74 [place] # (Auto) 0.55 Eos # (Auto) 0.14 Baso # (Auto) 0.04 Immature Gran # (Auto) 0.04 H Urine Color Urine Appearance Urine pH Ur Specific [place] Urine Protein Urine Glucose (UA) Urine Ketones Urine Blood Urine Nitrite Urine Bilirubin Urine Urobilinogen Ur Leukocyte Esterase Urine WBC (Auto) Urine RBC (Auto) U Hyaline Cast (Auto) U Epithel Cells (Auto) Urine Bacteria (Auto) SARS-CoV-2, RNA, NAAT Blood Type Pending Antibody Screen Pending Screen Pending <Marilyn Kay MD - Last Filed: 12/28/21 06:33> Co-Signing Physician Notes Resident Physician Supervision Note: I interviewed and examined the patient. Discussed with Dr. Serrato and agree with findings and plan as documented in the note. Any exceptions or clarifications are listed here: [ ] Documented By: Marilyn Kay MD, FACOG Resident Activity Tracking <Becca Serrato DO - Last Filed: 12/28/21 06:46> Resident Involvement: Resident Care Provided Care Provided: OB Delivery (Post )
[2021-12-28] MEDS ORDERED: CITRIC ACID/SODIUM CITRATE 15 ML UDC PO SCH (06:00)
[2021-12-28] MEDS ORDERED: LACTATED RINGER'S 1,000 ML IV SCH (06:00)
[2021-12-28 06:22] LABS: Basophils # (auto) 0.04 K/uL (0-0.2); Basophils % (auto) 0.5 %; Eosinophils # (auto) 0.14 K/uL (0-0.50); Eosinophils % (auto) 1.6 %; Hematocrit (blood only) 30.1 % (34.1-44.9); Hemoglobin 10.2 g/dl (12.0-16.0); Immature Granulocytes # (auto) 0.04 K/uL (0.00-0.02); Immature Granulocytes % (auto) 0.5 %; Lymphocytes # (auto) 1.74 K/uL (1.2-3.4); Lymphocytes % (auto) 20.1 %; Mean Corpuscular Hemoglobin 29.4 pg (25.0-34.0); Mean Corpuscular Hgb Conc 33.9 g/dL (32.0-36.0); Mean Corpuscular Volume 86.7 fL (80.0-100.0); Mean Platelet Volume 10.7 fL (9.4-12.3); Monocytes # (auto) 0.55 K/uL (0.24-0.82); Monocytes % (auto) 6.3 %; Neutrophils # (auto) 6.16 K/uL (1.4-6.5); Platelet Count 218 K/uL (130-400); RDW Coefficient of Variation 13.9 % (11.5-14.5); RDW Standard Deviation 43.6 fL (36.4-46.3); Red Blood Count 3.47 M/uL (3.93-5.22); White Blood Count 8.67 K/ul (4.8-10.8)
[2021-12-28] MEDS: LEVOTHYROXINE SODIUM 88 MCG TABLET PO SCH (06:36)
[2021-12-28] MEDS: SIMETHICONE 80 MG CHEW PO SCH ×4 (08:16→19:58)
[2021-12-28] MEDS: DOCUSATE SODIUM 100 MG CAP PO SCH ×2 (08:16→19:58)
[2021-12-28] MEDS: PRENATAL VITAMIN 1 TAB PO SCH (08:16)
[2021-12-28] MEDS: FERROUS SULFATE 325 MG TAB PO SCH (08:16)
[2021-12-28] MEDS: LACTATED RINGER'S 1,000 ML IV SCH (19:23)
[2021-12-28] MEDS ORDERED: bisacodyL 5 MG TABEC PO SCH (20:00)
[2021-12-29] MEDS: oxyCODONE/ACETAMINOPHEN 5mg/325mg TAB PO PRN ×3 (00:09→12:58)
[2021-12-29] MEDS: IBUPROFEN 600 MG TAB PO PRN ×4 (00:09→12:58)
[2021-12-29] MEDS: LACTATED RINGER'S 1,000 ML IV SCH (05:26)
--- NOTE | 2021-12-29 06:05 | Obstetrical Progress Note ---
Date of Service <Becca NewellSerjio Serrato DO - Last Filed: 12/29/21 07:33> December 29, 2021 Assessment & Plan <Becca NewellSerjio Serrato DO - Last Filed: 12/29/21 07:33> (1) Status post section: Tavarez is out, continue OOB and ambulation, progress diet as tolerated (2) Hypothyroidism: Continue 88 mcg levothyroxine <Beba Domingo MD, FACOG - Last Filed: 12/29/21 08:15> (1) Status post section: Tavarez is out, continue OOB and ambulation, progress diet as tolerated patient ready to go home will discharge to home follow up 6 weeks scripts sent to pharmacy (2) Hypothyroidism: Subjective <Becca S. DO Rojelio - Last Filed: 12/29/21 07:33> Makayla is a 41 y/o female who is POD #2 following delivery at 39 1/7 weeks. She reports feeling well overall this morning. Has noticed some increased swelling below her incision site. Moderate abdominal cramping & pain well managed on analgesics. Voiding. Tolerating meals overnight. Has been ambulating. Is passing gas and no bowel movement. Has some persistent lochia with some improvement this morning. Currently bottle feeding and pumping. Review of Systems Denies fever, chills, sweats Denies shortness of breath, difficulty breathing, chest pain, palpitations, chest pressure. Denies breast pain. Denies dysuria. Denies headache or changes in vision. Physical Exam <Becca Serrato DO - Last Filed: 12/29/21 07:33> General: Alert, oriented. No acute distress. Cardiac: Regular rate and rhythm, no murmurs/rubs/gallops. Respiratory: Clear to auscultation bilaterally a/p, no wheezes/rales/rhonchi. No increased work of breathing. Symmetrical chest rise. No respiratory distress. Abdomen: Soft, nontender, nondistended. Uterus: Uterine fundus firm, palpable 2 cm below umbilicus. Surgical scar clean and healing well. Lower Extremities: No lower extremity edema or swelling. No deep calf pain. Víctor's negative bilaterally. Results & Data ([facility]) <Becca Serrato DO - Last Filed: 12/29/21 07:33> Vital Signs (Past 12 Hours) Vital Signs Temp Pulse Resp BP Pulse Ox O2 Del Method 12/28/21 20:00 36.7 C 76 18 103/64 100 Room Air <Beba Domingo MD, FACOG - Last Filed: 12/29/21 08:15> Co-Signing Physician Notes Resident Physician Supervision Note: I interviewed and examined the patient. Discussed with Dr. Serrato and agree with findings and plan as documented in the note. Any exceptions or clarifications are listed here: [None] Documented By: Beba Domingo MD, FACOG Resident Activity Tracking <Becca Serrato, - Last Filed: 12/29/21 07:33> Resident Involvement: Resident Care Provided Care Provided: OB Delivery (Post )
[2021-12-29] MEDS: LEVOTHYROXINE SODIUM 88 MCG TABLET PO SCH (06:29)
[2021-12-29 07:12] LABS: Hematocrit (blood only) 30.1 % (34.1-44.9); Hemoglobin 10.2 g/dl (12.0-16.0)
[2021-12-29] MEDS: SIMETHICONE 80 MG CHEW PO SCH ×2 (07:51→12:58)
[2021-12-29] MEDS: DOCUSATE SODIUM 100 MG CAP PO SCH (07:51)
[2021-12-29] MEDS: PRENATAL VITAMIN 1 TAB PO SCH (07:51)
[2021-12-29] MEDS: FERROUS SULFATE 325 MG TAB PO SCH (07:51)
[2021-12-29] MEDS ORDERED: bisacodyL 10 MG SUPP PR PRN (08:42)
--- NOTE | 2021-12-30 07:34 | Discharge Summary ---
Date of Service December 30, 2021 Discharge Data Consultations 12/27/21 05:49 Consult Anesthesiology Stat Procedures Performed Operation Date: 12/27/21 07:30 Actual Procedures p Section (Delivery of Baby Through Abdominal Incision) for living female child at 0808(Bilateral) - Marilyn Kay MD Hospital Course (1) Status post section: Tavarez is out, continue OOB and ambulation, progress diet as tolerated patient ready to go home will discharge to home follow up 6 weeks scripts sent to pharmacy (2) Hypothyroidism: Continue 88 mcg levothyroxine Supervising Physician Co-Signing Physician Notes Resident Physician Supervision Note: I interviewed and examined the patient. Discussed with Dr. Serrato and agree with findings and plan as documented in the note. Any exceptions or clarifications are listed here: [None] Documented By: Beba Domingo MD, FACOG Coding Level of Care Code None Diagnoses Status post section Z98.891 Hypothyroidism E03.9
[2021-12-31] MEDS ORDERED: LEVOTHYROXINE SODIUM 88 MCG TABLET PO SCH (06:30)
== END 2021-12-29 15:00 | disposition home or self-care (01) | DRG 788 ==
LOC: 4S1 05:39 → 4E2 11:02 → EDSTATUS 12-31 08:50